=== PATIENT | female | born 1965 | race Two or more races ===

== ENCOUNTER 2020-05-17 12:13 | Outpatient (REF) | payer MEDICAID, SELFPAY ==
--- NOTE | 2020-05-17 | MM_ITS ---
EXAMINATION: MM SCREENING DIGITAL BREAST TOMOSYNTHESIS, BILATERAL CLINICAL INFORMATION: Screening. Asymptomatic. The lifetime risk of breast cancer based on the Tyrer-Cuzick Model is 8.9%. COMPARISON: Mammography: April 13, 2019 and studies dating back to July 31, 2009 TECHNIQUE: Digital breast tomosynthesis is performed in both the craniocaudal and mediolateral oblique views along with computer-aided detection (CAD). Synthesized 2D images are generated from the tomosynthesis. FINDINGS: There are scattered areas of fibroglandular density (ACR BI-RADS breast composition Category b). There are no significant masses, abnormal calcifications, or other abnormalities. MM/MM tomosynthesis screening BI IMPRESSION: There are no significant changes from prior study. ASSESSMENT: BI-RADS 1: Negative RECOMMENDATION: Routine annual mammography screening. This patient's information was entered into a reminder system with a target due date for their next mammogram.
== END 2020-05-17 12:14 | disposition home or self-care (01) ==
LOC: HO.MAMMO 12:13
PROVIDERS: PCP Student in an Organized Health Care Education/Training Program; Visit Provider Student in an Organized Health Care Education/Training Program
DX: Z12.31 Encounter for screening mammogram for malignant neoplasm of breast (principal)
CPT/HCPCS: 77063; 77067

== ENCOUNTER 2020-07-19 11:01 | Outpatient (REF) | payer MEDICAID, SELFPAY ==
--- NOTE | 2020-07-19 13:09 | MHC.AU.P13 ---
Adult Audiological Evaluation Date of Visit: 07/19/20 Reason for Appointment: Patient attends a program that requires annual hearing testing. History of developmental delay. Does patient feel they have a hearing loss?: No Has hearing been tested previously?: Yes Previous Hearing Test Results: At this clinic on 03/24/2019- normal OAEs, normal tympanograms, normal speech audiometry. Normal thresholds bilaterally at 4525-4012 Hz- patient lost interest for further tonal testing. Ear History: Recent Ear Drainage: None Reported Recent Ear Pain: None Reported Recent Ear Infections: None Reported Previous Ear Surgery: None Reported Bothersome Tinnitus/Ringing/Noises in Ears: None Reported Medical History: Medical History: Developmental Disorder/Delay Otoscopy: Right Ear: Unremarkable Left Ear: Unremarkable Tympanometry: Right Ear: Normal Middle Ear System (Type A) Left Ear: Normal Middle Ear System (Type A) Hearing Evaluation: Transducer(s) Used: Insert Earphones Method: Conventional Audiometry Stimuli Used: Pure Tones Right Ear: Description of Hearing: Normal hearing Left Ear: Description of Hearing: Normal hearing Speech Recognition Threshold (SRT): Method Used: Monitored Live Voice Stimuli Used: Spondee Words Right Ear: 15 dBHL Left Ear: 15 dBHL Word Discrimination: Method: Recorded Lists Word Lists Used: NU-6 Right Ear: 100% at 55 dBHL Left Ear: 100% at 55 dBHL Comparison: Compared to the most recent evaluation: Hearing is stable. Recommendations: Recommendations: Audiological re-evaluation in one year. Diagnosis: Primary Diagnosis: H93.293 Abnormal Auditory Perception Services Performed: Services Performed: Pure Tone- Air (CPT 70545), Speech Audiometry Threshold, with Speech Recognition (CPT 17987), Tympanometry (CPT 95025) Signature: Provider: Osvaldo Gupta, [facility]
== END 2020-07-19 11:02 | disposition home or self-care (01) ==
LOC: HO.SH 11:01
PROVIDERS: Visit Provider Student in an Organized Health Care Education/Training Program
DX: H93.293 Other abnormal auditory perceptions, bilateral (principal)
CPT/HCPCS: 92552; 92556; 92567

== ENCOUNTER → 2020-07-21 13:31 | Outpatient (BNVA) | payer MEDICAID, SELFPAY | PROVIDERS: PCP Student in an Organized Health Care Education/Training Program; Visit Provider Urology | DX: Z76.89 Persons encountering health services in other specified circumstances (principal) ==

== ENCOUNTER 2020-10-07 09:02 | Outpatient (REF) | payer MEDICAID, SELFPAY ==
[2020-10-07 10:56] LABS: Alanine Aminotransferase 17 U/L (0-31); Albumin Level 4.4 g/dL (3.5-5.0); Alkaline Phosphatase 76 U/L (39-117); Anion Gap 13 (12-20); Aspartate Amino Transferase 18 U/L (5-31); Bilirubin Direct < 0.2 mg/dL (0.0-0.5); Bilirubin Total 0.2 mg/dL (0.0-1.0); Blood Urea Nitrogen 17 mg/dL (9-16); Calcium 10.3 mg/dL (8.4-10.2); Carbon Dioxide 31 mmol/L (22-29); Chloride 101 mmol/L (96-108); Cholesterol 273 mg/dL; Estimated Glomerular Filt Rate > 60; Glucose Random 92 mg/dL (60-115); HDL Cholesterol 50 mg/dL; LDL Cholesterol Calculated 179 mg/dl; Potassium 5.4 mmol/L (3.3-5.1); Sodium 140 mmol/L (135-145); Total Protein 7.6 g/dL (6.5-8.0); Triglycerides 222 mg/dL
== END 2020-10-07 09:03 | disposition home or self-care (01) ==
LOC: HO.LAB 09:02
PROVIDERS: PCP Student in an Organized Health Care Education/Training Program; Visit Provider Student in an Organized Health Care Education/Training Program
DX: E78.00 Pure hypercholesterolemia, unspecified (principal)
CPT/HCPCS: 36415; 80048; 80061; 80076

== ENCOUNTER 2020-10-10 10:21 | Outpatient (REF) | payer MEDICAID, SELFPAY ==
--- NOTE | ~2020-10-10 | FL_ITS ---
EXAMINATION: FL BARIUM SWALLOW CLINICAL INFORMATION: Dysphagia COMPARISON: None TECHNIQUE: Barium swallow examination is performed using fluoroscopic evaluation in addition to multiple fluoroscopic spot views. The patient is imaged both upright and prone and using both thick and thin sulfate along with effervescent granules. Barium tablet was administered. Exam is limited as the patient was reluctant to drink. Fluoroscopy time: 1.4 minutes DAP: 8.6 Gycm2 Images: 39 FINDINGS: No aspiration or penetration is seen. There is temporary stasis of the barium tablet at the GE junction. There is a small sliding-type hiatal hernia with Schatzki ring. No mass, stricture or reflux is seen. FL/FL barium swallow IMPRESSION: Somewhat limited exam. No aspiration or penetration. Temporary stasis of barium tablet in the distal thoracic esophagus and small sliding-type hiatal hernia with Schatzki ring.
== END 2020-10-10 10:22 | disposition home or self-care (01) ==
LOC: HO.XRAY 10:21
PROVIDERS: PCP Student in an Organized Health Care Education/Training Program; Visit Provider Student in an Organized Health Care Education/Training Program
DX: R13.10 Dysphagia, unspecified (principal)
CPT/HCPCS: 74220

== ENCOUNTER 2020-11-10 09:25 | Day surgery (SDC) | payer MEDICAID, SELFPAY ==
[2020-11-07 14:00] VITALS: BMI 21.9
--- NOTE | 2020-11-09 09:23 | HO.ANESPROP2 ---
HPI - Anesthesia Eval Consult details Narrative: 55yo F for Upper Endoscopy with Balloon Dilation [facility] resident - developmental delay PMFSH Active Problems Active Problems: All Active Problems (Updated 11/07/20 @ 14:03 by Maria D Patel) Enureses (Acute) Past Medical History Medical History Arthritis COVID-19 vaccine administered Depression Elevated cholesterol Enureses GERD (gastroesophageal reflux disease) History of anxiety History of COVID-19 History of developmental delay Hx of bipolar disorder Surgical History Surgical History H/O colonoscopy Social History Social History Household Members: Other Are you a primary health care marketing specialist to a significant other at home: No Do you presently have visiting nurse or other home services: Yes (resides in nursing home) Smoking Status: Never smoker Use of substances other than those prescribed or required for medical reasons: No Have you been hit, kicked, punched, or otherwise hurt by someone within the past year? If so, by whom?: No Are you DNR?: No Advance Directives: No (unknown) Advance Directives Information Provided: No Recently lost weight without trying: No Eating poorly because of decreased appetite: No Nutrition Risks: No Nutritional Risk Patient : No FDLMP: N/A Meds Allergies Allergy/AdvReac Type Severity Reaction Status Date / Time hydrocortisone Allergy Unknown Unknown Verified 11/07/20 14:04 olanzapine [From ZYPREXA] Allergy Unknown UNKNOWN Unverified 03/30/20 14:56 quetiapine [From SEROQUEL] Allergy Unknown UNKNOWN Unverified 03/30/20 14:56 Pramoxine HCl Allergy Unknown Unknown Uncoded 11/07/20 14:04 Skin Cleanser Allergy Unknown Unknown Uncoded 11/07/20 14:04 Home Medications Medication Instructions Recorded Confirmed Last Taken Type atorvastatin [Lipitor] 20 mg PO BEDTIME 11/07/20 11/07/20 Unknown History citalopram [Celexa] 1 tab PO QAM 11/07/20 11/07/20 Unknown History divalproex [Depakote] 2 tab PO BEDTIME 11/07/20 11/07/20 Unknown History fluticasone propionate [Flonase] 1 spray INTRANASAL DAILY 11/07/20 11/07/20 Unknown History lorazepam [Ativan] 1 tab PO TID PRN 11/07/20 11/07/20 Unknown History olanzapine 10 mg PO BEDTIME 11/07/20 11/07/20 Unknown History omeprazole [Prilosec] 20 mg PO DAILY 11/07/20 11/07/20 Unknown History trazodone 2 tab PO BEDTIME 11/07/20 11/07/20 Unknown History ziprasidone HCl [Geodon] 60 mg PO BID 11/07/20 11/07/20 Unknown History Exam Exam Date and Time: November 09, 2020 0923 Height,Weight and Vital Signs: Height 5 ft Weight 50.802 kg Assessment and Plan Assessment Anesthesia Assessment: Chart Reviewed
[2020-11-10 09:50] VITALS: BP 115/75; PULSE 86; RESP 16; TEMP 36.3; O2SAT 97; BMI 24.5
[2020-11-10] MEDS: Lactated Ringers 1,000 ML 100 ML IVCONT (10:13)
--- NOTE | 2020-11-10 10:30 | P.CONAN_ITS ---
[facility] Active Problems Active Problems: All Active Problems (Updated 11/07/20 @ 14:03 by Maria D rodriguez) Enureses (Acute) Past Medical History Medical History (Updated 11/07/20 @ 14:03 by Maria D Patel) Arthritis COVID-19 vaccine administered Depression Elevated cholesterol Enureses GERD (gastroesophageal reflux disease) History of anxiety History of COVID-19 History of developmental delay Hx of bipolar disorder Surgical History Surgical History H/O colonoscopy Social History Social History Household Members: Other Are you a primary housekeeper caregiver to a significant other at home: No Do you presently have visiting nurse or other home services: Yes (resides in detention) Smoking Status: Never smoker Use of substances other than those prescribed or required for medical reasons: No Have you been hit, kicked, punched, or otherwise hurt by someone within the past year? If so, by whom?: No Advance Directives: No (unknown) Advance Directives Information Provided: No Recently lost weight without trying: No Meds Allergies Allergy/AdvReac Type Severity Reaction Status Date / Time hydrocortisone Allergy Unknown Unknown Verified 11/07/20 14:04 olanzapine [From ZYPREXA] Allergy Unknown UNKNOWN Unverified 03/30/20 14:56 quetiapine [From SEROQUEL] Allergy Unknown UNKNOWN Unverified 03/30/20 14:56 Pramoxine HCl Allergy Unknown Unknown Uncoded 11/07/20 14:04 Skin Cleanser Allergy Unknown Unknown Uncoded 11/07/20 14:04 Active Medications: Current Medications Generic Name Dose Route Start Last Admin Trade Name Freq PRN Reason Stop Dose Admin Lactated Ringer's 1,000 mls @ 100 mls/hr 11/10/20 10:00 11/10/20 10:13 Lr IVCONT 100 mls/hr .Q10H JUSTINA Administration Home Medications Medication Instructions Recorded Confirmed Last Taken Type atorvastatin [Lipitor] 20 mg PO BEDTIME 11/07/20 11/07/20 Unknown History citalopram [Celexa] 1 tab PO QAM 11/07/20 11/07/20 Unknown History divalproex [Depakote] 2 tab PO BEDTIME 11/07/20 11/07/20 Unknown History fluticasone propionate [Flonase] 1 spray INTRANASAL DAILY 11/07/20 11/07/20 Unknown History lorazepam [Ativan] 1 tab PO TID PRN 11/07/20 11/07/20 Unknown History olanzapine 10 mg PO BEDTIME 11/07/20 11/07/20 Unknown History omeprazole [Prilosec] 20 mg PO DAILY 11/07/20 11/07/20 Unknown History trazodone 2 tab PO BEDTIME 11/07/20 11/07/20 Unknown History ziprasidone HCl [Geodon] 60 mg PO BID 11/07/20 11/07/20 Unknown History Exam Exam Date and Time: November 10, 2020 1030 Height,Weight and Vital Signs: Height 5 ft Weight 56.961 kg Last Vital Signs Temp 97.3 F 11/10/20 09:50 Pulse 86 11/10/20 09:50 Resp 16 11/10/20 09:50 BP 115/75 11/10/20 09:50 Pulse Ox 97 11/10/20 09:50 Airway Mallampati Class: II TM Dist: >3cm Neck ROM: Full Heart: RRR Lungs: CTA
[2020-11-10 10:56] VITALS: BP 92/46; PULSE 76; RESP 14; TEMP 36.6; O2SAT 97
--- NOTE | 2020-11-10 11:00 | PM.OP ---
Brief Operative Note Date of Service: 11/10/20 Pre-op diagnosis: Dysphagia Post-op diagnosis: other (Hiatal hernia, R/O EOE) Procedure: EGD with Balloon Dilation and biopsies Surgeon: Khris Cid Anesthesia: MAC Estimated blood loss (mL): 3.0 Pathology: other (A. Esophagus at 25cm) Condition: stable Disposition: PACU
--- NOTE | 2020-11-10 11:09 | HO.ANESPROP2 ---
[facility] Active Problems Active Problems: All Active Problems (Updated 11/07/20 @ 14:03 by Maria D Patel) Enureses (Acute) Past Medical History Medical History Arthritis COVID-19 vaccine administered Depression Elevated cholesterol Enureses GERD (gastroesophageal reflux disease) History of anxiety History of COVID-19 History of developmental delay Hx of bipolar disorder Surgical History Surgical History H/O colonoscopy Social History Social History Household Members: Other Are you a primary home care nurse to a significant other at home: No Do you presently have visiting nurse or other home services: Yes (resides in [facility]) Smoking Status: Never smoker Use of substances other than those prescribed or required for medical reasons: No Have you been hit, kicked, punched, or otherwise hurt by someone within the past year? If so, by whom?: No Advance Directives: No (unknown) Advance Directives Information Provided: No Recently lost weight without trying: No Meds Allergies Allergy/AdvReac Type Severity Reaction Status Date / Time hydrocortisone Allergy Unknown Unknown Verified 11/07/20 14:04 olanzapine [From ZYPREXA] Allergy Unknown UNKNOWN Unverified 03/30/20 14:56 quetiapine [From SEROQUEL] Allergy Unknown UNKNOWN Unverified 03/30/20 14:56 Pramoxine HCl Allergy Unknown Unknown Uncoded 11/07/20 14:04 Skin Cleanser Allergy Unknown Unknown Uncoded 11/07/20 14:04 Active Medications: Current Medications Generic Name Dose Route Start Last Admin Trade Name Freq PRN Reason Stop Dose Admin Lactated Ringer's 1,000 mls @ 100 mls/hr 11/10/20 10:00 11/10/20 10:13 Lr IVCONT 100 mls/hr .Q10H JUSTINA Administration Home Medications Medication Instructions Recorded Confirmed Last Taken Type atorvastatin [Lipitor] 20 mg PO BEDTIME 11/07/20 11/07/20 Unknown History citalopram [Celexa] 1 tab PO QAM 11/07/20 11/07/20 Unknown History divalproex [Depakote] 2 tab PO BEDTIME 11/07/20 11/07/20 Unknown History fluticasone propionate [Flonase] 1 spray INTRANASAL DAILY 11/07/20 11/07/20 Unknown History lorazepam [Ativan] 1 tab PO TID PRN 11/07/20 11/07/20 Unknown History olanzapine 10 mg PO BEDTIME 11/07/20 11/07/20 Unknown History omeprazole [Prilosec] 20 mg PO DAILY 11/07/20 11/07/20 Unknown History trazodone 2 tab PO BEDTIME 11/07/20 11/07/20 Unknown History ziprasidone HCl [Geodon] 60 mg PO BID 11/07/20 11/07/20 Unknown History Exam Exam Date and Time: November 10, 2020 1109 Height,Weight and Vital Signs: Height 5 ft Weight 56.961 kg Last Vital Signs Temp 97.9 F 11/10/20 10:56 Pulse 76 11/10/20 10:56 Resp 14 11/10/20 10:56 BP 92/46 L 11/10/20 10:56 Pulse Ox 97 11/10/20 10:56 Airway Mallampati Class: II TM Dist: >3cm Neck ROM: Full Heart: RRR Lungs: CTA
[2020-11-10 11:11] VITALS: BP 97/55; PULSE 78; RESP 18; O2SAT 98
--- NOTE | 2020-11-10 11:22 | OP_ITS ---
SURGEON: Khris Cid MD INDICATIONS: The patient presents for evaluation of dysphagia and abnormal barium swallow. Full consent has been obtained from her for this, including risks of bleeding and perforation. PREOPERATIVE DIAGNOSIS: POSTOPERATIVE DIAGNOSIS: PROCEDURE PERFORMED: Esophagogastroduodenoscopy with balloon dilation of gastroesophageal junction, and biopsies. ESTIMATED BLOOD LOSS: COMPLICATIONS: ANESTHESIA: Monitored anesthesia care. ASSISTANTS: SPECIMENS: PREOPERATIVE DIAGNOSES: Dysphagia and abnormal barium swallow. POSTOPERATIVE DIAGNOSES: Dysphagia and abnormal barium swallow, small hiatal hernia, rule out eosinophilic esophagitis. DESCRIPTION OF PROCEDURE: The patient was placed in the left lateral decubitus position. The Olympus video gastroscope was passed in the posterior oropharynx and upper esophagus under direct vision. The scope was passed slowly into the distal esophagus. The gastroesophageal junction appeared at 32 cm. There was no sign of any esophagitis, esophageal stricture, Riley's esophagus, nor any definitive esophageal ring. The scope easily entered into the stomach. There was a small hiatal hernia. The scope was advanced to the pylorus and the duodenum was cannulated to the descending portion. The duodenum including the bulb appeared normal without mass or ulceration. The scope was withdrawn back in the stomach. The gastric antrum and body appeared normal with good peristalsis. The scope was retroflexed visualizing the proximal stomach carefully, which appeared normal, without any mass or ulceration. The scope was straightened out and withdrawn back into the esophagus. Given the symptomatology and barium swallow findings, I did use a [employer] incremental balloon to dilate the gastroesophageal junction from 18 mm to 19 mm to 20 mm at the recommended pressure for between 30 and 60 seconds each. Post dilation, there really was no heme nor any sign of effect from the dilation. The scope was withdrawn to the esophagus. The esophageal mucosa appeared normal. Biopsies were obtained at 25 cm. The scope was withdrawn from the patient. She tolerated the procedure well and was returned to the recovery area in stable condition. IMPRESSION: 1. Small hiatal hernia. 2. Status post balloon dilation of gastroesophageal junction. 3. Rule out eosinophilic esophagitis. PLAN: The results of biopsies will be checked. She will continue her daily Prilosec. Instructions have been given that as long as she is doing well from the swallowing standpoint, she could see me on a p.r.n. basis and she will be due for a followup colonoscopy in 2021. If she continues to have problems, instructions have been given that I should be advised of that and we would want to proceed with further workup including a possible modified barium swallow with [facility] as well as possible esophageal motility studies. This has been discussed with Demi, her program coordinator for residence life from the shelter. MD SHELDON Moore/VERO / [phone]
--- NOTE | 2020-11-10 13:04 | HO.POSTANES ---
Post Anesthesia Evaluation Post Anesthesia Evaluation Vital Signs: Vital Signs Temp Pulse Resp BP Pulse Ox 11/10/20 11:11 78 18 97/55 L 98 11/10/20 10:56 97.9 F 76 14 92/46 L 97 11/10/20 09:50 97.3 F 86 16 115/75 97 Anesthesia: Monitored Mental Status: Awake Pain Control: Satisfactory Nausea/Vomiting: None Hydration: Adequate Anesthesia-Related Issues: No Anes. Related Issues
== END 2020-11-10 12:38 | disposition home or self-care (01) ==
PROVIDERS: PCP Student in an Organized Health Care Education/Training Program; Visit Provider Internal Medicine
PROC: (CPT 43249; principal; 2020-11-10 10:10)
DX: R93.3 Abnormal findings on diagnostic imaging of other parts of digestive tract (principal); R13.10 Dysphagia, unspecified; K21.9 Gastro-esophageal reflux disease without esophagitis; K44.9 Diaphragmatic hernia without obstruction or gangrene; F32.9 Major depressive disorder, single episode, unspecified; R32 Unspecified urinary incontinence; R62.50 Unspecified lack of expected normal physiological development in childhood; Z86.16 Personal history of COVID-19; Z79.899 Other long term (current) drug therapy; Z88.8 Allergy status to other drugs, medicaments and biological substances
CPT/HCPCS: 43249; 43239; 88305; C1726

== ENCOUNTER → 2020-12-21 13:51 | Outpatient (BNVA) | payer MEDICAID, SELFPAY | PROVIDERS: PCP Student in an Organized Health Care Education/Training Program; Visit Provider Urology | DX: R32 Unspecified urinary incontinence (principal) | CPT/HCPCS: 99212 ==

== ENCOUNTER 2021-05-22 11:03 | Outpatient (REF) | payer MEDICAID, SELFPAY ==
--- NOTE | ~2021-05-22 | MM_ITS ---
EXAMINATION: MM SCREENING DIGITAL BREAST TOMOSYNTHESIS, BILATERAL CLINICAL INFORMATION: Screening. Asymptomatic. The lifetime risk of breast cancer based on the Tyrer-Cuzick Model is 9.6%. COMPARISON: Mammography: May 17, 2020 and studies dating back to January 21, 2014 TECHNIQUE: Digital breast tomosynthesis is performed in both the craniocaudal and mediolateral oblique views along with computer-aided detection (CAD). Synthesized 2D images are generated from the tomosynthesis. FINDINGS: There are scattered areas of fibroglandular density (ACR BI-RADS breast composition Category b). There are no significant masses, abnormal calcifications, or other abnormalities. MM/MM tomosynthesis screening BI IMPRESSION: There are no significant changes from prior study. ASSESSMENT: BI-RADS 1: Negative RECOMMENDATION: Routine annual mammography screening. This patient's information was entered into a reminder system with a target due date for their next mammogram.
== END 2021-05-22 11:04 | disposition home or self-care (01) ==
LOC: HO.MAMMO 11:03
PROVIDERS: Visit Provider Student in an Organized Health Care Education/Training Program
DX: Z12.31 Encounter for screening mammogram for malignant neoplasm of breast (principal)
CPT/HCPCS: 77063; 77067

== ENCOUNTER → 2021-06-22 13:28 | Outpatient (BNVA) | payer MEDICAID, SELFPAY | PROVIDERS: PCP Student in an Organized Health Care Education/Training Program | DX: R32 Unspecified urinary incontinence (principal) | CPT/HCPCS: 51798; 99212 ==

== ENCOUNTER 2021-08-07 13:00 | Outpatient (REF) | payer MEDICAID, SELFPAY ==
--- NOTE | 2021-08-07 16:46 | MHC.AU.AEV ---
Adult Audiological Evaluation Date of Visit: 08/07/21 Regulatory Compliance Manager Used: Declined by Patient, Caregiver provided Italian interpretation. Reason for Appointment: Ms. Wang was seen for a yearly re-evaluation to monitor her hearing status. Patient was accompanied by a caregiver. Patient reports no change in her hearing or medical status since her last exam. Ms. Wang's caregiver reports no concerns with Ms. Wang's hearing overall, although she often needs reminders to stay focused on a task. Does patient feel they have a hearing loss?: No If Yes, Which Ear?: None Reported Has hearing been tested previously?: Yes Previous Hearing Test Results: Patient's previous exam was on 07/19/2020 which revealed normal hearing thresholds from 250 to 8000 Hz bilaterally. Medical History: Medical History: Developmental Disorder/Delay Medical History: High cholesterol, allergies, mental health diagnoses Allergies: Hydrocortisone, olanzapine, quetiapine, pramoxine HCL Medication List: Tofranil HCL, Prilosec, Lipitor, Tylenol, Fish oil, Flonase, Colace, Cetirizine, IC Calcium, Cogentin/Benztropine, Celexa, Depakote DR, Ativan, Desyrel, Zyprexa Otoscopy: Right Ear: Unremarkable Left Ear: Unremarkable Tympanometry: Tympanometry performed due to: To assess integrity of the middle ear system Right Ear: Normal Middle Ear System (Type A) Left Ear: Normal Middle Ear System (Type A) Otoacoustic Emissions Frequency Range Used: 1.6-8 kHz Right Ear Results: Present 1.6-3.2 & 5.6-6.3 kHz. Reduced/absent 3.6-5.0 & 7.1-8.0 kHz Analysis: High noise floor present due to movement/vocalizations, which likely impacted results. Left Ear Results: Present Emissions Analysis: Present emissions suggest normal cochlear function. Rules out peripheral hearing loss greater than a mild degree Hearing Evaluation: Transducer(s) Used: Insert Earphones Method: Conventional Audiometry Stimuli Used: Pure Tones Right Ear: Description of Hearing: Normal hearing across all frequencies tested, 250-8000 Hz. Left Ear: Description of Hearing: Normal hearing across all frequencies tested, 250-8000 Hz. Speech Recognition Threshold (SRT): Method Used: Recorded Lists Stimuli Used: Italian Trisyllable Words Right Ear: 25 dB HL Left Ear: 25 dB HL Word Discrimination: Method: Recorded Lists Word Lists Used: Lista Bisil?bica (Italian) Right Ear: 84% at 65 dB HL Left Ear: 84% at 65 dB HL Comparison: Compared to the most recent evaluation: Hearing is stable. Interpretation of Results: Normal hearing abilities bilaterally. Recommendations: Audiological re-evaluation if changes are noted. Audiological re-evaluation in one year. Diagnosis: Primary Diagnosis: H93.293 Abnormal Auditory Perception Services Performed: Comprehensive Audiological Evaluation (CPT 88135) Tympanometry (CPT 82486) Signature: Student/Clinical Fellow: Yes: Kathy Castillo B.A., Osvaldo Mate Fourth I have reviewed/agreed with student/fellow documentation: Yes Provider: Osvaldo Simon, [facility]
== END 2021-08-07 13:01 | disposition home or self-care (01) ==
LOC: HO.SH 13:00
PROVIDERS: Visit Provider Student in an Organized Health Care Education/Training Program
DX: Z01.118 Encounter for examination of ears and hearing with other abnormal findings (principal); H93.293 Other abnormal auditory perceptions, bilateral
CPT/HCPCS: 92552; 92556; 92557; 92567; 92588

== ENCOUNTER → 2022-02-12 08:37 | Outpatient (BNVA) | payer MEDICAID, SELFPAY | PROVIDERS: PCP Student in an Organized Health Care Education/Training Program | DX: R32 Unspecified urinary incontinence (principal) | CPT/HCPCS: 51798; 99212 ==

== ENCOUNTER 2022-05-28 08:18 | Outpatient (REF) | payer MEDICAID, SELFPAY ==
--- NOTE | ~2022-05-28 | MM_ITS ---
EXAMINATION: MM SCREENING DIGITAL BREAST TOMOSYNTHESIS, BILATERAL CLINICAL INFORMATION: Screening. Asymptomatic. COMPARISON: Mammography: 05/22/2021, 05/17/2020, 04/13/2019 TECHNIQUE: Digital breast tomosynthesis is performed in both the craniocaudal and mediolateral oblique views along with computer-aided detection (CAD). Synthesized 2D images are generated from the tomosynthesis. FINDINGS: There are scattered areas of fibroglandular density (ACR BI-RADS breast composition Category b). There are no significant masses, abnormal calcifications, or other abnormalities. Parenchymal pattern is similar to prior studies. There is no developing density or architectural abnormality. The axilla and skin contours are unremarkable. No significant changes. MM/MM tomosynthesis screening BI IMPRESSION: No mammographic evidence of malignancy. ASSESSMENT: BI-RADS 1: Negative RECOMMENDATION: Routine annual mammography screening. This patient's information was entered into a reminder system with a target due date for their next mammogram.
== END 2022-05-28 08:19 | disposition home or self-care (01) ==
LOC: HO.MAMMO 08:18
PROVIDERS: PCP Student in an Organized Health Care Education/Training Program; Visit Provider Student in an Organized Health Care Education/Training Program
DX: Z12.31 Encounter for screening mammogram for malignant neoplasm of breast (principal)
CPT/HCPCS: 77063; 77067

== ENCOUNTER → 2022-08-15 08:31 | Outpatient (BNVA) | payer MEDICAID, SELFPAY | PROVIDERS: PCP Student in an Organized Health Care Education/Training Program; Visit Provider Nurse Practitioner Family | DX: R33.9 Retention of urine, unspecified (principal); R32 Unspecified urinary incontinence | CPT/HCPCS: 51798; 99212 ==

== ENCOUNTER → 2023-01-06 10:19 | Outpatient (BNVA) | payer MEDICAID, SELFPAY | PROVIDERS: PCP Student in an Organized Health Care Education/Training Program; Visit Provider Nurse Practitioner Family | DX: R33.9 Retention of urine, unspecified (principal); R32 Unspecified urinary incontinence | CPT/HCPCS: 51798; 99212 ==

== ENCOUNTER → 2023-02-19 08:16 | Day surgery (SDC) | payer MEDICAID, SELFPAY ==
--- NOTE | 2023-02-18 10:33 | HO.ANESPROP2 ---
Documented by User: Samantha Bhardwaj NP 02/18/23 10:34 HPI - Anesthesia Eval Consult details Narrative: 57yo F for Colonoscopy PMFSH Active Problems Active Problems: All Active Problems (Updated 08/15/22 @ 16:45 by Lizabeth Flores [facility]) Incomplete bladder emptying (Acute) Enureses (Acute) Past Medical History Medical History Arthritis COVID-19 vaccine administered Depression Elevated cholesterol Enureses GERD (gastroesophageal reflux disease) History of anxiety History of COVID-19 History of developmental delay Hx of bipolar disorder Surgical History Surgical History H/O colonoscopy Social History Social History Household Members: Other Are you a primary patient care secretary to a significant other at home: No Do you presently have visiting nurse or other home services: Yes (resides in long term) Alcohol intake: never Patient Tobacco Use Status: Never used Tobacco Meds Allergies Allergy/AdvReac Type Severity Reaction Status Date / Time hydrocortisone Allergy Unknown Unknown Verified 01/06/23 14:28 olanzapine [From ZYPREXA] Allergy Unknown UNKNOWN Verified 01/06/23 14:28 quetiapine [From SEROQUEL] Allergy Unknown UNKNOWN Verified 01/06/23 14:28 Pramoxine HCl Allergy Unknown Unknown Uncoded 01/06/23 14:28 Skin Cleanser Allergy Unknown Unknown Uncoded 01/06/23 14:28 Home Medications Medication Instructions Recorded Confirmed Last Taken Type citalopram 40 mg tablet (Celexa) 1 tab PO QAM 11/07/20 08/15/22 Unknown History divalproex 500 mg tablet,delayed 2 tab PO BEDTIME 11/07/20 08/15/22 Unknown History release (Depakote) fluticasone propionate 50 1 spray intranasal DAILY 11/07/20 08/15/22 Unknown History mcg/actuation nasal spray,suspension lorazepam 0.5 mg tablet (Ativan) 1 tab PO TID PRN Anxiety 11/07/20 08/15/22 Unknown History olanzapine 5 mg tablet 10 mg PO BEDTIME 11/07/20 08/15/22 Unknown History omeprazole 20 mg capsule,delayed 20 mg PO DAILY 11/07/20 08/15/22 Unknown History release trazodone 100 mg tablet 2 tab PO BEDTIME 11/07/20 08/15/22 Unknown History ziprasidone HCl 60 mg capsule 60 mg PO BID 11/07/20 08/15/22 Unknown History (Yanet) atorvastatin 40 mg tablet 40 mg PO QPM 01/06/23 Unknown History benztropine 0.5 mg tablet 0.5 mg PO BID 01/06/23 Unknown History calcium carbonate 500 mg-vitamin 1 tab PO DAILY 01/06/23 Unknown History D3 10 mcg (400 unit) chewable tablet cetirizine 10 mg tablet 10 mg PO DAILY 01/06/23 Unknown History docusate sodium 100 mg capsule 0 mg PO 01/06/23 Unknown History (MADELYN) fluphenazine HCl 2.5 mg tablet 2.5 mg PO BID 01/06/23 Unknown History olanzapine 10 mg tablet 10 mg PO BEDTIME 01/06/23 Unknown History Exam Exam Date and Time: February 18, 2023 1033 Assessment and Plan Assessment Anesthesia Assessment: Chart Reviewed Documented by User: Mary Dallas MD 02/19/23 10:05 HPI - Anesthesia Eval Consult details Narrative: 57yo F for Colonoscopy. Patient is not competent to sign and has no health care proxy or legal guardian. Procedure is being postponed pending appointment of legal guardian [facility] Past Medical History Medical History Arthritis COVID-19 vaccine administered Depression Elevated cholesterol Enureses GERD (gastroesophageal reflux disease) History of anxiety History of COVID-19 History of developmental delay Hx of bipolar disorder Surgical History Surgical History H/O colonoscopy Social History Social History Household Members: Other Are you a primary patient care secretary to a significant other at home: No Do you presently have visiting nurse or other home services: Yes (resides in long term) Alcohol intake: never Patient Tobacco Use Status: Never used Tobacco Meds Allergies Allergy/AdvReac Type Severity Reaction Status Date / Time hydrocortisone Allergy Unknown Unknown Verified 01/06/23 14:28 olanzapine [From ZYPREXA] Allergy Unknown UNKNOWN Verified 01/06/23 14:28 quetiapine [From SEROQUEL] Allergy Unknown UNKNOWN Verified 01/06/23 14:28 Pramoxine HCl Allergy Unknown Unknown Uncoded 01/06/23 14:28 Skin Cleanser Allergy Unknown Unknown Uncoded 01/06/23 14:28 Home Medications Medication Instructions Recorded Confirmed Last Taken Type citalopram 40 mg tablet (Celexa) 1 tab PO QAM 11/07/20 08/15/22 Unknown History divalproex 500 mg tablet,delayed 2 tab PO BEDTIME 11/07/20 08/15/22 Unknown History release (Depakote) fluticasone propionate 50 1 spray intranasal DAILY 11/07/20 08/15/22 Unknown History mcg/actuation nasal spray,suspension lorazepam 0.5 mg tablet (Ativan) 1 tab PO TID PRN Anxiety 11/07/20 08/15/22 Unknown History olanzapine 5 mg tablet 10 mg PO BEDTIME 11/07/20 08/15/22 Unknown History omeprazole 20 mg capsule,delayed 20 mg PO DAILY 11/07/20 08/15/22 Unknown History release trazodone 100 mg tablet 2 tab PO BEDTIME 11/07/20 08/15/22 Unknown History ziprasidone HCl 60 mg capsule 60 mg PO BID 11/07/20 08/15/22 Unknown History (Georoberto) atorvastatin 40 mg tablet 40 mg PO QPM 01/06/23 Unknown History benztropine 0.5 mg tablet 0.5 mg PO BID 01/06/23 Unknown History calcium carbonate 500 mg-vitamin 1 tab PO DAILY 01/06/23 Unknown History D3 10 mcg (400 unit) chewable tablet cetirizine 10 mg tablet 10 mg PO DAILY 01/06/23 Unknown History docusate sodium 100 mg capsule 0 mg PO 01/06/23 Unknown History (DOK) fluphenazine HCl 2.5 mg tablet 2.5 mg PO BID 01/06/23 Unknown History olanzapine 10 mg tablet 10 mg PO BEDTIME 01/06/23 Unknown History
--- OUTSIDE RECORDS SUMMARY | 2023-02-19 08:18 | XMS_ITS ---
Author Name Khris Cid Address [address] [place] [address] Organization [facility] Address [address] [place] [address] Care Team Providers Care Lodging Facilities Manager Name Role Phone PalakKhris Unavailable [phone] PROBLEMS Type Condition ICD9-CM Code GXI95-WJ Code Onset Dates Condition Status SNOMED Code Problem Constipation, unspecified constipation type K59.00 Active 69433274 Problem Gastroesophageal reflux disease without esophagitis K21.9 Active 95044646 5 Problem Encounter for screening for malignant neoplasm of colon Z12.11 Active 705535414 Problem Weight loss R63.4 Active 71357078 Problem Abnormal barium swallow R93.3 Active 792121583 Problem Esophageal dysphagia R13.10 Active 408 99660 ALLERGIES Substance Reaction Event Type Date Status Seroquel Unknown Drug Allergy November, Active ENCOUNTERS Encounter Location Date Diagnosis [facility] Outpatient [address] [place] [id number] Feb, [facility] [address] [place] [phone] November, [facility] [address] [facility] [address] [place] [phone] November, Encounter for screening for malignant neoplasm of colon Z12.11 ; Gastroesophageal reflux disease without esophagitis K21.9 ; Constipation, unspecified constipation type K59.00 and Esophageal dysphagia R13.10 [facility] Outpatient [address] [place] [id number] Oct, Dysphagia R13.10 ; Abnormal CT scan, esophagus R93.3 and Hiatal hernia K44.9 [facility] [address] [place] [phone] Oct, Esophageal dysphagia R13.10 and Abnormal barium swallow R93.3 [facility] [address] [place] [address] Oct, [facility] [address] [place] [phone] Jul, [facility] [address] [place] [phone] Jun, [facility] Outpatient [address], [place] [phone] Jun, [facility] [address] [place] [phone] Apr, [facility] [address] [place] [phone] Apr, [facility] [address] [place] [phone] Apr, Weight loss R63.4 and Encounter for screening for malignant neoplasm of colon Z12.11 IMMUNIZATIONS Vaccine Route Administration Date Status Influenza Unknown Apr 26, 2020 Administered SOCIAL HISTORY Qualifiers Date Never Smoker REASON FOR REFERRAL FUNCTIONAL STATUS PLAN OF CARE Activity Details VITAL SIGNS Weight 149 lbs 2022-12-05 Weight 112 lbs 2020-11-01 Weight 114 lbs 2017-05-06 Height 60 in 2022-12-05 Height 60 in 2020-11-01 Height 60 in 2017-05-06 BMI 29.10 kg/m2 2022-12-05 BMI 21.87 kg/m2 2020-11-01 BMI 22.26 kg/m2 2017-05-06 Heart Rate 60 /min 2017-05-06 Temperature 97.8 degrees Fahrenheit Temperature 98.2 degrees Fahrenheit Blood pressure systolic 000 mm Hg Blood pressure diastolic 00 mm Hg 2022-11 MEDICATIONS Medication Instructions Dosage Frequency Start Date End Date Duration Status Flonase Allergy Relief 50 MCG/ACT Nasally Once a day 1 spray in each nostril 24h 30 day(s) Active Oyster Shell Calcium + D Active Tylenol 500 mg A ctive Depakote 1000 mg Active CeleXA 40 MG Orally Once a day 0.5 tablet 24h Active Lubricant Eye Drops Active [place] 3 Active Calcium + Vitamin D3 500-400 Active Prilosec Active Lipitor 40 MG Orally Once a day 1 tablet 24h 30 day(s) Active MiraLax (colon prep) 17 GM/SCOOP Orally Take the 1/2 bottle 2 days before the colonoscopy, and begin the full bottle at 5:00 p.m. the day before the procedure 1/2 of a 238Gm bottle mixed with 32 ounces of Gatorade 2 days before the colonoscopy, and then 1 238 GM bottle mixed with 64 ounces of Gatorade or Crystal Light the day before the colonoscopy November, 2 days Active Colace 100 MG Orally twice a day 1 capsule as needed 12h Active Bethanechol Chloride 50 MG Orally Three times a day 1 tablet 1 hour before or 2 hours after meals 8h 30 day(s) Active Cetirizine HCl 10 MG Active Tofranil Active fluPHENAZine HCl 2.5 MG Orally Once a day 1 tablet 24h 30 day(s) Active ZyPREXA 5 MG Act temi Ativan 0.5 MG Orally as directed /as needed 1 tablet as needed Active Dulcolax (colon prep) 5 MG Orally 2 tablets once two days before the colonoscopy, and two tablets twice a day for one day Take 2 Dulcolax 2 days before the colonoscopy, and then take 2 at 3:00 p.m and at 7:00p.m. on the day before the colonoscopy November, 2 days Active PROCEDURES Procedure Date Ordered Result Body Site TOBACCO NON-USER December 05, 2022 DOC MEDS VERIFIED W/PT OR RE December 05, 2022 TOBACCO NON-USER November 01, 2020 DOC MEDS VERIFIED W/PT OR RE November 01, 2020 UPPER GI ENDOSCOPY, BIOPSY November 10, 2020 COLORECTAL CA SCREEN DOC REV December 05, 2022 COLORECTAL CA SCREEN DOC REV November 01, 2020 ESOPH ENDOSCOPY, DILATION November 10, 2020 BP SCR PRFRM RCMDD DEFIND SCR INTVL November 01, 2020 BP SCR NOT PRFRM REC REASON NOS December 05, 2022 RESULTS Name Result Date Reference Range Pathology 2020-11-10 REASON FOR VISIT screening, 2 day bowel prep, Patient presents today for a COLON SCREENING, abn barium swallow,dysphagia, Patient presents today for DIFFICULTY SWALLOWING SOLIDS, COVID Screen, Refusing to do stool cards, GERD/PRE COLON, Heme cards, screening colon, Patient presents today for weight loss Insurance Providers Health Insurance Type Health Plan Insurance Address Health Plan Insurance Phone Health Plan Insurance Name Health Plan Coverage Dates Member ID Patient Relationship to Subscriber Patient Address Patient Phone Patient Name Patient Date of Subscriber ID Subscriber Name Subscriber Date of Group No [place] [address] [place] [address] [place] self [facility] [id number] [facility] [place] [address] [facility] [address] [facility] [place] self [facility] [id number]
--- NOTE | 2023-02-19 09:34 | PC.NURSE ---
pt with health care worker at bedside, terminal gauger. Pt axo x person only. states she is here for psychiatrist. unable to state date. no family or guardian. call to catalogue and special products manager info given from catalogue and special products manager but no legal administrative representative appointed. Per [facility] Director, cannot proceed. risk management notified by director. advised health care worker that legal guardian should be pursued.
--- NOTE | 2023-02-19 09:39 | PC.NURSE ---
dr. aleman notified.
[2023-02-19 09:41] VITALS: BP 121/73; PULSE 81; RESP 18; TEMP 36.6; O2SAT 100
== END ==
PROVIDERS: PCP Student in an Organized Health Care Education/Training Program; Visit Provider Internal Medicine
DX: Z53.8 Procedure and treatment not carried out for other reasons (principal); Z12.11 Encounter for screening for malignant neoplasm of colon; E78.5 Hyperlipidemia, unspecified; R13.10 Dysphagia, unspecified; K21.9 Gastro-esophageal reflux disease without esophagitis; Z79.899 Other long term (current) drug therapy

== ENCOUNTER → 2023-03-06 13:30 | Outpatient (BNV) | payer MEDICAID, SELFPAY | PROVIDERS: PCP Student in an Organized Health Care Education/Training Program; Visit Provider Radiology Diagnostic Radiology | DX: N63.23 Unspecified lump in the left breast, lower outer quadrant (principal) | CPT/HCPCS: 76642; 77062; 77066 ==

== ENCOUNTER 2023-03-06 13:47 | Outpatient (REF) | payer MEDICAID, SELFPAY ==
--- NOTE | ~2023-03-06 | MM_ITS ---
EXAMINATION: MM DIAGNOSTIC DIGITAL BREAST TOMOSYNTHESIS, BILATERAL US BREAST LIMITED, LEFT MAMMOGRAPHY: CLINICAL INFORMATION: Palpable focus of concern patient's physician felt medial left breast, 4 cm from the nipple, approximately 10:00 location. Patient states she cannot feel the abnormality for localization purposes today. Patient also due for routine bilateral screening. COMPARISON: Mammography: 05/28/2022, 05/22/2021, 05/17/2020, 04/09/2018. TECHNIQUE: Digital breast tomosynthesis is performed in both the craniocaudal and mediolateral oblique views along with computer-aided detection (CAD). Synthesized 2D images are generated from the tomosynthesis. In addition a 3-D full-field left mediolateral view was performed. FINDINGS: There are scattered areas of fibroglandular density (ACR BI-RADS breast composition Category b). There are no suspicious masses, suspicious grouped calcifications, or areas of architectural distortion. The parenchymal pattern is stable from prior exams. There is no mammographic mass or area of architectural distortion in the medial left breast. No mammographic correlate to the palpable focus of concern is present. ULTRASOUND: CLINICAL INFORMATION: Palpable focus of concern patient's physician felt medial left breast, 4 cm from the nipple, approximately 10:00 location. Patient states she cannot feel the abnormality for localization purposes today. COMPARISON: None relevant. TECHNIQUE: Targeted sonographic evaluation was performed of the medial left breast spanning the 7-11 o'clock axes using a high frequency linear transducer. Selected archived documentation. FINDINGS: LEFT BREAST: There is a mixture of fatty and fibroglandular tissue. No suspicious mass is seen. There is no pathologic acoustic shadowing. There is no cystic abnormality. No sonographic correlate to the palpable focus of concern is present. MM/MM tomosynthesis diagnostic BI IMPRESSION: There are no findings suspicious for malignancy. There is no imaging correlate to the purported palpable focus of concern in the medial left breast, 4 cm from the nipple. Recommend clinical management. Decision to biopsy a palpable abnormality without imaging correlate must be based on clinical grounds. OVERALL ASSESSMENT: Mammography: BI-RADS 1 - Negative Ultrasound: BI-RADS 1 - Negative RECOMMENDATION: 1 year F/U Results were provided to the patient at time of visit by the technologist. This patient's information was entered into a reminder system with a target due date for their next mammogram.
== END 2023-03-06 13:48 | disposition home or self-care (01) ==
LOC: HO.MAMMO 13:47
PROVIDERS: PCP Student in an Organized Health Care Education/Training Program; Visit Provider Emergency Medicine
DX: N64.4 Mastodynia (principal)
CPT/HCPCS: 76642; 77062; 77066

== ENCOUNTER 2023-07-08 10:37 | Outpatient (AMB) | payer MEDICAID, SELFPAY ==
--- NOTE | 2023-07-08 10:42 | MHC.OFFVIS ---
Intake Intake Visit Reasons: 6m/PVR Intake Note: Patient is present for follow up retention/incontinence Urology Medications: Bethanechol Blood Thinner: none PVR: 148ml's Laser Print Operator Required: Yes Accompanied by: ADVANCED QUALITY ENGINEER Allergies hydrocortisone Allergy (Unknown, Verified 07/08/23 10:57) Unknown olanzapine [From ZYPREXA] Allergy (Unknown, Verified 07/08/23 10:57) UNKNOWN quetiapine [From SEROQUEL] Allergy (Unknown, Verified 07/08/23 10:57) UNKNOWN Pramoxine HCl Allergy (Unknown, Uncoded 07/08/23 10:57) Unknown Skin Cleanser Allergy (Unknown, Uncoded 07/08/23 10:57) Unknown HPI HPI Comments History of Present Illness Details Rebecca is a pleasant 57-year-old female patient of Dr. Keys. She presents today for follow-up regarding her overactive bladder. She has a past medical history of arthritis, depression, elevated cholesterol, enuresis, GERD, anxiety, developmental delay, and bipolar disorder. [facility] by her case finisher at today's visit. When asked patient reports to be doing well. Senior Qa Analyst and patient deny any issues or concerns at this time. She reports compliance with imipramine and bethanechol as prescribed. She denies urinary incontinence, dysuria, urgency, frequency, and or hematuria however patient is vague and a poor historian at times throughout todays visit. 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 Unable to obtain urine for urinalysis as patient unable to void . PVR 48 mLs. [facility] Medical History COVID-19 vaccine administered History of COVID-19 History of anxiety Arthritis Elevated cholesterol GERD (gastroesophageal reflux disease) Depression History of developmental delay Hx of bipolar disorder Enureses Surgical History H/O colonoscopy Social History Household Members: Other Are you a primary animal care technician to a significant other at home: No Do you presently have visiting nurse or other home services: Yes (resides in custodial) Alcohol intake: never Patient Tobacco Use Status: Never used Tobacco Review of Systems Const Reports as per HPI Eyes Reports no additional complaints ENT Reports no additional complaints Card Reports no additional complaints Resp Reports no additional complaints GI Reports as per [facility] Reports as per [facility] Musc Reports as per [facility] Neuro Reports as per [facility] Psych Reports as per [facility] Endo Reports no additional complaints Fareed/Lymph Reports no additional complaints Aller/Immun Reports no additional complaints Physical Exam Const General: cooperative, healthy appearing, comfortable, no acute distress, well developed, alert and awake Orientation/consciousness: oriented to person Limitations: no limitations HEENT Head: Yes normal to inspection, Yes normocephalic and Yes atraumatic Ears: hearing grossly normal bilaterally Neck Neck: Yes normal visual inspection and Yes trachea midline Chest Chest palpation & inspection: normal inspection of the chest Resp Effort & Inspection: normal respiratory effort and able to speak in complete sentences Cardio Rate: regular rate Neuro General: oriented to person Psych Appearance: grossly normal and well kempt Speech and movement: Normal speech and movement present and Clear speech present Affect: Labile affect present and Other affect and mood findings present (at times patient was emotional throughout todays) Attitude: cooperative Thought process: Other thought process findings present (patient developmentally delayed ) Insight: Limited insight present (Psych) Judgement: Limited judgement present (Psych) Office Procedures Post Void Residual Post Residual Void Post Void Residual (PVR): 148 [id number] Void Residual by ultrasound Assessment & Plan Assessment & Plan (1) Incomplete bladder emptying: Code(s): R33.9 - Retention of urine, unspecified (2) Enureses: Code(s): R32 - Unspecified urinary incontinence Plan Unable to obtain urine for urinalysis; patient unable to void however PVR 48ml's. Patient denies any bothersome urinary symptoms. She reports to be happy with her current voiding parameters on imipramine and bethanechol; will continue. Continue urological medications as discussed and prescribed. Continue double voiding and scheduled toileting. Will obtain retroperitoneal ultrasound prior to next follow-up appointment as discussed Follow-up in 6 months with PVR; or sooner with any issues, concerns, and or questions. Orders: Orders AMB Post Void Residual by ultrasound Today R33.9 - Retention of urine, unspecified US retroperitoneal comp Today R32 - Unspecified urinary incontinence, R33.9 - Retention of urine, unspecified Patient Instructions: The patient had an opportunity to ask questions regarding the treatment plan. All questions were answered. Physical exam, labs, and imaging were discussed and reviewed in detail. As well as risks, benefits, and discussion of treatment choices. No major barriers to understanding were identified. The patient expressed understanding and agreement with the above treatment plan. The patient was made aware they should contact our office by phone for worsening of their current condition, the appearance of new symptoms, or with any questions or concerns. Compliance is encouraged with any medications and follow up testing that is ordered. It is a privilege to be allowed the opportunity to participate in? your urological care.? Again, if you have any questions or concerns If you have any questions or concerns please do not hesitate to contact me. The office is [phone]. This note is constructed using voice recognition software. While every effort has been made to ensure accuracy medical physics professor errors may have been included. Yours sincerely, ANN Marin- Coding Level of Care Code Est Pt Level 3 (75739) Diagnoses Incomplete bladder emptying R33.9 Enureses R32 CPT Codes Post Residual Void - PVR CPT Code: 05071-[id number] Void Residual by ultrasound ([id number])
== END 2023-07-08 11:25 | disposition home or self-care (01) ==
PROVIDERS: PCP Student in an Organized Health Care Education/Training Program; Visit Provider Nurse Practitioner Family
DX: R33.9 Retention of urine, unspecified (principal); R32 Unspecified urinary incontinence
CPT/HCPCS: 99213

== ENCOUNTER → 2023-07-08 10:37 | Outpatient (BNVA) | payer MEDICAID, SELFPAY | PROVIDERS: PCP Student in an Organized Health Care Education/Training Program; Visit Provider Nurse Practitioner Family | DX: R33.9 Retention of urine, unspecified (principal); R32 Unspecified urinary incontinence | CPT/HCPCS: 51798; 99212 ==

== ENCOUNTER 2023-07-30 10:44 | Outpatient (REF) | payer MEDICAID, SELFPAY ==
--- NOTE | ~2023-07-30 | US_ITS ---
EXAMINATION: US RETROPERITONEAL COMPLETE (RENAL) CLINICAL INFORMATION: Retention of urine, unspecified. COMPARISON: CT abdomen and pelvis without and with contrast 10/29/2017. TECHNIQUE: Real-time imaging of the kidneys and bladder. FINDINGS: RIGHT KIDNEY: 10.0 x 4.9 x 5.0 cm (SAG x AP x TRV). The kidney is normal in size, contour, and echogenicity. Renal cortical thickness is normal. No calculi or focal parenchymal lesions. No hydronephrosis. LEFT KIDNEY: 10.6 x 5.5 x 5.0 cm (SAG x AP x TRV). The kidney is normal in size, contour, and echogenicity. Renal cortical thickness is normal. No calculi or focal parenchymal lesions. No hydronephrosis. BLADDER: Partially distended. Bilateral ureteral jets are demonstrated. Prevoid bladder volume is 134 mL. Postvoid bladder volume is 2 mL. ADDITIONAL FINDINGS: A 6.9 x 5.0 x 6.4 cm simple appearing right ovarian cyst is noted. This is a chronic finding, which on the CT abdomen and pelvis dated 10/29/2017 showed dimensions of 5.8 x 4.7 x 6.0 cm. US/US retroperitoneal comp IMPRESSION: 1. Unremarkable ultrasound appearance of the kidneys. 2. A 6.9 cm in maximal diameter right ovarian cyst is seen, mildly increased from the CT abdomen and pelvis dated 10/29/2017. Gynecology evaluation and management is recommended. Consider follow-up ultrasound examination in 6 months to ensure continued stability. Whether this cyst presently exerts pressure upon the urinary bladder or right ureter is uncertain.
== END 2023-07-30 10:45 | disposition home or self-care (01) ==
LOC: HO.HMGCX 10:44
PROVIDERS: PCP Student in an Organized Health Care Education/Training Program; Visit Provider Nurse Practitioner Family
DX: R33.9 Retention of urine, unspecified (principal); R32 Unspecified urinary incontinence
CPT/HCPCS: 76770

== ENCOUNTER 2023-11-27 09:32 | Outpatient (REF) | payer MEDICAID, SELFPAY ==
--- NOTE | ~2023-11-27 | FL_ITS ---
EXAMINATION: XR FLUOROSCOPY UPPER GI WITH AIR CLINICAL INFORMATION: Dysphagia COMPARISON: None TECHNIQUE: Fluoroscopic air contrast upper GI examination was performed utilizing standard techniques with thin and thick barium and effervescent granules. Numerous spot images were obtained. FINDINGS: Lateral cine images of the oropharynx and hypopharynx demonstrate normal swallow mechanism with normal epiglottic inversion and soft palate elevation. There is trace laryngeal penetration with thick barium. No tracheal penetration, glottic or subglottic aspiration identified. No nasopharyngeal reflux present. Normal-appearing hypopharynx. Mild cricopharyngeal achalasia is present. Dual and single contrast images of the esophagus demonstrate normal caliber, contour, and mucosal pattern. No evidence of mass, or ulcerations identified. Essentially normal GE junction aside from a small type I hiatus hernia. There is to and fro motion of barium column with nonpropulsive tertiary contractions noted throughout the esophagus. Small type I hiatal hernia is present. Significant gastroesophageal reflux is seen up to thoracic inlet. Dual contrast and single contrast images of the stomach demonstrated normal contour and mucosal pattern without evidence of mass, ulceration, or other abnormality. Contrast freely passed into the gastric antrum and duodenal bulb without delay. Single and air-contrast images of the duodenal bulb demonstrate no abnormality. The duodenal sweep has a normal appearance, course, and mucosal fold appearance. The imaged proximal jejunum has a normal fold pattern and caliber. FLUOROSCOPY TIME: 4 minutes 20 seconds Number of Spot Images: 10 Number of Cine: 14 DOSE AREA PRODUCT: 2383 uGy-m2 (microgray-meter squared) FL/FL barium swallow with air IMPRESSION: 1.Trace laryngeal penetration with thick barium. No subglottic aspiration. 2. Small lateral pharyngeal diverticulum. 3. Mild cricopharyngeal achalasia. 4. Significant GE reflux. 5. Esophageal dysmotility, moderate. 6. Small type I hiatus hernia. 7. Normal stomach, duodenum. This procedure was performed by Lázaro Joseph PA-C, and supervised by Dr. Serrano
== END 2023-11-27 09:33 | disposition home or self-care (01) ==
LOC: HO.XRAY 09:32
PROVIDERS: PCP Student in an Organized Health Care Education/Training Program; Visit Provider Student in an Organized Health Care Education/Training Program
DX: R13.19 Other dysphagia (principal)
CPT/HCPCS: 74221

== ENCOUNTER → 2023-11-27 09:34 | Outpatient (BNV) | payer MEDICAID, SELFPAY | PROVIDERS: PCP Student in an Organized Health Care Education/Training Program; Visit Provider Physician Assistant Surgical | DX: R13.10 Dysphagia, unspecified (principal) | CPT/HCPCS: 74246 ==

== ENCOUNTER 2024-01-06 10:08 | Outpatient (AMB) | payer MEDICAID, SELFPAY ==
--- NOTE | 2024-01-06 10:13 | A.OFFVIS_ITS ---
Intake Visit Reasons: 6m/US/PVR(set) Intake Note: Patient is present for follow up retention/incontinence Urology Medications: Bethanechol Blood Thinner: none PVR: 106ml's Dimpling Machine Operator Required: Yes Dimpling Machine Operator Name: YISSEL PASCUALVINNIE Accompanied by: AZURE ARCHITECT Allergies hydrocortisone Allergy (Unknown, Verified 01/06/24 10:46) Unknown olanzapine [From ZYPREXA] Allergy (Unknown, Verified 01/06/24 10:46) UNKNOWN quetiapine [From SEROQUEL] Allergy (Unknown, Verified 01/06/24 10:46) UNKNOWN Pramoxine HCl Allergy (Unknown, Uncoded 01/06/24 10:46) Unknown Skin Cleanser Allergy (Unknown, Uncoded 01/06/24 10:46) Unknown Medication List - Last Reconciled 01/06/24 by ANN Marin-VALERIA atorvastatin 40 mg PO QPM benztropine 0.5 mg PO BID bethanechol chloride 50 mg PO BID 90 days calcium carbonate-vitamin D3 500 mg-10 mcg (400 unit) 1 tab PO DAILY cetirizine 10 mg PO DAILY citalopram 20 mg PO DAILY divalproex (Depakote) 2 tabs PO BEDTIME docusate sodium (DOK) 0 mg PO fluphenazine HCl mg PO fluticasone propionate 50 mcg/actuation 1 spray intranasal DAILY imipramine HCl 20 mg (2 x 10 mg) PO BEDTIME 90 days lorazepam (Ativan) 1 tab PO TID PRN olanzapine 10 mg PO BEDTIME omeprazole 20 mg PO DAILY peg 400-propylene glycol 0.4-0.3 % (Lubricant Eye (PG-PEG 400)) 1 drp ophthalmic (eye) BID trazodone 2 tabs PO BEDTIME HPI Comments Details: Rebecca is a pleasant 58-year-old female patient of Dr. Keys. She presents today for follow-up regarding her overactive bladder. She has a past medical history of arthritis, depression, elevated cholesterol, enuresis, GERD, anxiety, developmental delay, and bipolar disorder. [facility] accompanied by her AZURE ARCHITECT worker at today's visit. In discussion with the patient today she reports to be doing and feeling well. She reports since her last office visit here she has completed her retroperitoneal ultrasound that was ordered. These results were reviewed with the patient and her AZURE ARCHITECT worker today. Bilateral kidneys with no renal calculi, lesions, and or hydronephrosis. Bilateral ureteral jets are demonstrated. Pre void bladder volume is approximately 135 mL. Postvoid bladder volume is approximately 0 mL. 6.9 cm simple appearing right ovarian cyst is noted. This is a chronic finding however it does appear slightly increased since previous imaging in 2018. 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 Discussed following up to discussed these results and be sure this is a chronic and stable finding. Patient does report a history of ongoing lower urinary tract symptoms however currently denies any bothersome urinary issues or concerns. She currently denies urinary urgency, urinary frequency, incontinence, nocturia, hematuria, dysuria, foul smelling urine, changes to urinary stream, flank pain, fever, and or chills. She is happy with her current voiding parameters. She reports compliance with imipramine and bethanechol as prescribed. Patient does have developmental delay and die technician assists providing patient medical history during todays office visit. In office urinalysis results reviewed with the patient today. PVR 106 mL. She otherwise offers no other issues or concerns at this time [facility] Medical History COVID-19 vaccine administered History of COVID-19 History of anxiety Arthritis Elevated cholesterol GERD (gastroesophageal reflux disease) Depression History of developmental delay Hx of bipolar disorder Enureses Surgical History H/O colonoscopy Social History Household Members: Other Are you a primary palliative care nurse to a significant other at home: No Do you presently have visiting nurse or other home services: Yes (resides in penitentiary) Alcohol intake: never Patient Tobacco Use Status: Never used Tobacco Review of Systems Const Reports as per HPI Eyes Reports no additional complaints ENT Reports no additional complaints Card Reports no additional complaints Resp Reports no additional complaints GI Reports as per HPI Reports as per HPI Musc Reports as per HPI Neuro Reports as per HPI Psych Reports as per HPI Endo Reports no additional complaints Fareed/Lymph Reports no additional complaints Aller/Immun Reports no additional complaints Physical Exam Const General: cooperative, healthy appearing, comfortable, no acute distress, well developed, alert and awake Orientation/consciousness: oriented to person Limitations: no limitations HEENT Head: Yes normal to inspection, Yes normocephalic and Yes atraumatic Ears: hearing grossly normal bilaterally Neck Neck: Yes normal visual inspection and Yes trachea midline Chest Chest palpation & inspection: normal inspection of the chest Resp Effort & Inspection: normal respiratory effort and able to speak in complete sentences Cardio Rate: regular rate Neuro General: oriented to person Psych Appearance: grossly normal and well kempt Speech and movement: Normal speech and movement present and Clear speech present Affect: Labile affect present and Other affect and mood findings present (at times patient was emotional throughout todays) Attitude: cooperative Thought process: Other thought process findings present (patient developmentally delayed ) Insight: Limited insight present (Psych) Judgement: Limited judgement present (Psych) Office Procedures Post Void Residual Post Residual Void Post Void Residual (PVR): 106 [id number]-[place] Void Residual by ultrasound Results AMB Urinalysis, Automated UA Leukoctes 15 Shaista/uL Last Edit by Tactile on 01/06/24 10:46 UA Nitrite Negative Last Edit by Tactile on 01/06/24 10:46 UA Urobilinogen 0.2 mg/dL Last Edit by Tactile on 01/06/24 10:46 UA Protein 15 mg/dL Last Edit by Tactile on 01/06/24 10:46 UA pH 6.0 Last Edit by Tactile on 01/06/24 10:46 UA Blood 25 Sam/uL Last Edit by Tactile on 01/06/24 10:46 UA Specific [place] 1.020 Last Edit by Tactile on 01/06/24 10:46 UA Ketone Positive Last Edit by Tactile on 01/06/24 10:46 UA Bilirubin 0 mg/dL Last Edit by Tactile on 01/06/24 10:46 UA Glucose 0 mg/dL Last Edit by Tactile on 01/06/24 10:46 Results Reviewed Results Reviewed: Date of Service: 07/30/23 EXAMINATION: US RETROPERITONEAL COMPLETE (RENAL) FINDINGS: RIGHT KIDNEY: 10.0 x 4.9 x 5.0 cm (SAG x AP x TRV). The kidney is normal in size, contour, and echogenicity. Renal cortical thickness is normal. No calculi or focal parenchymal lesions. No hydronephrosis. LEFT KIDNEY: 10.6 x 5.5 x 5.0 cm (SAG x AP x TRV). The kidney is normal in size, contour, and echogenicity. Renal cortical thickness is normal. No calculi or focal parenchymal lesions. No hydronephrosis. BLADDER: Partially distended. Bilateral ureteral jets are demonstrated. Prevoid bladder volume is 134 mL. Postvoid bladder volume is 2 mL. ADDITIONAL FINDINGS: A 6.9 x 5.0 x 6.4 cm simple appearing right ovarian cyst is noted. This is a chronic finding, which on the CT abdomen and pelvis dated 10/29/2017 showed dimensions of 5.8 x 4.7 x 6.0 cm. IMPRESSION: 1. Unremarkable ultrasound appearance of the kidneys. 2. A 6.9 cm in maximal diameter right ovarian cyst is seen, mildly increased from the CT abdomen and pelvis dated 10/29/2017. Gynecology evaluation and management is recommended. Consider follow-up ultrasound examination in 6 months to ensure continued stability. Whether this cyst presently exerts pressure upon the urinary bladder or right ureter is uncertain. Assessment & Plan Assessment & Plan (1) Incomplete bladder emptying: Code(s): R33.9 - Retention of urine, unspecified Category: Medical (2) Enureses: Code(s): R32 - Unspecified urinary incontinence Category: Medical Plan In office urinalysis results reviewed with the patient today; as noted above. PVR 106 mL. She currently denies any bothersome urinary issues or concerns. Recent retroperitoneal ultrasound results reviewed with the patient and her AZURE ARCHITECT worker today. Continue bethanechol and imipramine as discussed and prescribed. She is happy with the current voiding parameters. Discussed follow-up with cart pusher to assess for stability of chronic ovarian cyst that was noted on recent retroperitoneal ultrasound. Continue limiting fluids 2-3 hours prior to bed to decrease episodes of enuresis. Follow-up in 6 months with PVR; or sooner with any issues, concerns, and or questions. Orders: Orders AMB Urinalysis Automated Today Z13.9 - Encounter for screening, unspecified AMB Post Void Residual by ultrasound Today R33.9 - Retention of urine, unspecified Patient Instructions: The patient had an opportunity to ask questions regarding the treatment plan. All questions were answered. Physical exam, labs, and imaging were discussed and reviewed in detail. As well as risks, benefits, and discussion of treatment choices. No major barriers to understanding were identified. The patient expressed understanding and agreement with the above treatment plan. The patient was made aware they should contact our office by phone for worsening of their current condition, the appearance of new symptoms, or with any questions or concerns. Compliance is encouraged with any medications and follow up testing that is ordered. It is a privilege to be allowed the opportunity to participate in? your urological care.? Again, if you have any questions or concerns If you have any questions or concerns please do not hesitate to contact me. The office is [phone]. This note is constructed using voice recognition software. While every effort has been made to ensure accuracy expeditionary force combat skills errors may have been included. Yours sincerely, DIANA Marin Coding Level of Care Code Est Pt Level 3 (49373) Complex EM visit Add On G2211 Diagnoses Incomplete bladder emptying R33.9 Enureses R32 CPT Codes Post Residual Void - PVR CPT Code: 18453-Dxdx Void Residual by ultrasound ([id number])
--- OUTSIDE RECORDS SUMMARY | 2024-01-08 08:01 | XMS_ITS | Patient Health Record ---
Author Organization [facility] Address [address] [place] [id number] Care Team Providers Care News Content Specialist Name Role Phone DELANEY CLAYTON Primary Care Provider Khris Russ [phone] ALLERGIES Allergen (clinical drug ingredient) Drug/Non Drug Allergy documented on EMR Reaction Allergy Type Onset Date Status quetiapine Seroquel Unknown Drug Allergy Active REASON FOR REFERRAL No Information MEDICATIONS Medication SIG (Take, Route, Frequency, Duration) Notes Start Date End Date Status CeleXA 40 MG 0.5 tablet Orally Once a day Active Ativan 0.5 MG 1 tablet as needed Orally as directed /as needed Active Flonase Allergy Relief 50 MCG/ACT 1 spray in each nostril Nasally Once a day for 30 day(s) Active Oyster Shell Calcium + D Active Lipitor 40 MG 1 tablet Orally Once a day for 30 day(s) Active Lubricant Eye Drops Active fluPHENAZine HCl 2.5 MG 1 tablet Orally Once a day for 30 day(s) Active Cetirizine HCl 10 MG Orally Active Colace 100 MG 1 capsule as needed Orally twice a day Active Calcium + Vitamin D3 500-400 Active Bethanechol Chloride 50 MG 1 tablet 1 hour before or 2 hours after meals Orally Three times a day for 30 day(s) Active Depakote 1000 mg Act temi MiraLax (colon prep) 17 GM/SCOOP 1/2 of a 238Gm bottle mixed with 32 ounces of Gatorade 2 days before the colonoscopy, and then 1 238 GM bottle mixed with 64 ounces of Gatorade or Crystal Light the day before the colonoscopy Orally Take the 1/2 bottle 2 days before the colonoscopy, and begin the full bottle at 5:00 p.m. the day before the procedure for 2 days 12/09/2022 Active Tofranil Active ZyPREXA 5 MG Orally 10 mg in the evening Active Tylenol 500 mg Activ e Prilosec Active Dulcolax (colon prep) 5 MG Take 2 Dulcolax 2 days before the colonoscopy, and then take 2 at 3:00 p.m and at 7:00p.m. on the day before the colonoscopy Orally 2 tablets once two days before the colonoscopy, and two tablets twice a day for one day for 2 days 12/09/[address] [place] 3 Active IMMUNIZATIONS Vaccine Route Administration Date Status Comme nts Influenza Unknown 04/26/2020 Administered SOCIAL HISTORY Tobacco Use: Social History Observation Description Date Details (start date - stop date) Never Smoker NA - NA Sex Assigned At : Social History Observation Description Sex Assigned At Unknown Tobacco Use/Smoking Question Answer Notes Patient is a nonsmoker Alcohol Screen Question Answer Notes Did you have a drink containing alcohol in the p ast year? No Points 0 Interpretation Negative PROBLEMS Problem Type ICD Code Onset Dates Problem Status W/U Status Risk SNOMED Code Notes Problem Weight loss (R63.4) Active confirmed 89 514435 Problem Encounter for screening for malignant neoplasm of colon (Z12.11) Active confirmed 231654649 Problem Esophageal dysphagia (R13.10) Active confirmed 35627262 Problem Abnormal barium swallow (R93.3) Active confirmed 960224746 Problem Gastroesophageal reflux disease without esophagitis (K21.9) Active confirmed 285176239 Problem Constipation, unspecified constipation type (K59.00) Active confirmed 99891258 Encounters Encounter Location Date Provider Diagnosis [facility] Outpatient [address] [place] [phone] 02/19/2023 Khris Cid [facility] [address] [place] [phone] 02/23/2023 Khris Cid [facility] [address] [place] [phone] 03/04/2023 Khris Cid [facility] [address] [place] [phone] 05/30/2023 Khris Cid [employer]MENT Future Test Test Name Order Date COLONOSCOPY 05/06/2017 UPPER GI ENDOSCOPY [place] DILATION OF ESOPH 11/01/2020 COLONOSCOPY 12/05/2022 Insurance Providers Payer Name Payer Address Payer Phone Subscriber Number Group Number Insured Name Patient Relationship to Insured Coverage Start Date Coverage End Date [employer] [address] [place] [phone] [id number] REY MANCIA Self - patient is the insured MEDICAL (GENERAL) HISTORY Medical History History ICD Code Developmental delay disorder Mood disorder--depression, bipolar GERD Arthriis Denies AR,DM,CVA,Lung disease,renal dise ase hyperlipidemia depression allergies anxiety insomnia acid reflux constipation low vitamin D urinary incontinence Colonoscopy 06/2017--negativ e for polyps but it was a very limited prep and she is in a recall for 06/2022 EGD 10/2020-small hiatal katia ia, no esophageal stricture, biopsies negative for eosinophilic esophagitis, dilation of the gastroesophageal junction was done with a large balloon up to 20 mm although without any real appreciable effect Surgical History Surgery Date(Month/Year)
== END 2024-01-06 10:45 | disposition home or self-care (01) ==
LOC: HO.HUSH 10:08
PROVIDERS: PCP Student in an Organized Health Care Education/Training Program; Visit Provider Nurse Practitioner Family
DX: R33.9 Retention of urine, unspecified (principal); R32 Unspecified urinary incontinence; Z13.9 Encounter for screening, unspecified
CPT/HCPCS: 99213; G2211

== ENCOUNTER → 2024-01-06 10:08 | Outpatient (BNVA) | payer MEDICAID, SELFPAY | PROVIDERS: PCP Student in an Organized Health Care Education/Training Program; Visit Provider Nurse Practitioner Family | DX: R33.9 Retention of urine, unspecified (principal); R32 Unspecified urinary incontinence; N32.81 Overactive bladder | CPT/HCPCS: 51798; 81003; 99212 ==

== ENCOUNTER 2024-01-13 08:41 | Outpatient (REF) | payer MEDICAID, SELFPAY ==
[2024-01-13 15:04] LABS: Alanine Aminotransferase 21 U/L (0-31); Albumin Level 4.1 g/dL (3.5-5.0); Alkaline Phosphatase 76 U/L (39-117); Anion Gap 15 (12-20); Aspartate Amino Transferase 20 U/L (5-31); Bilirubin Direct < 0.2 mg/dL (0.0-0.5); Bilirubin Total 0.2 mg/dL (0.0-1.0); Blood Urea Nitrogen 15 mg/dL (9-16); Calcium 10.2 mg/dL (8.4-10.2); Carbon Dioxide 29 mmol/L (22-29); Chloride 102 mmol/L (96-108); Cholesterol 222 mg/dL (<200); Estimated Glomerular Filt Rate > 60; Glucose Random 111 mg/dL (60-115); HDL Cholesterol 41 mg/dL (>40); LDL Cholesterol Calculated 133 mg/dL (<100); Potassium 5.1 mmol/L (3.3-5.1); Sodium 141 mmol/L (135-145); Total Protein 7.6 g/dL (6.5-8.0); Triglycerides 242 mg/dL (<150)
[2024-01-13 15:35] LABS: ~HepC Num1 0.06 S/CO (0.00-0.79); ~Hepatitis C Antibody Nonreactive (Nonreactive)
[2024-01-17 19:49] LABS: HIV RNA PCR Qn Copies Not Detected Copies/mL; HIV RNA PCR Qn Log Copies Not Detected Log cps/mL
== END 2024-01-13 08:42 | disposition home or self-care (01) ==
LOC: HO.CHCLDS 08:41
PROVIDERS: Visit Provider Student in an Organized Health Care Education/Training Program
DX: Z00.00 Encounter for general adult medical examination without abnormal findings (principal); I10 Essential (primary) hypertension
CPT/HCPCS: 36415; 80048; 80061; 80076; 86803; 87536; 87900

== ENCOUNTER 2024-01-26 18:08 | Outpatient (REF) | payer MEDICAID, SELFPAY ==
[2024-02-03 11:39] LABS: HPV mRNA E6/E7 Not Detected (Not Detected)
== END 2024-01-26 18:09 | disposition home or self-care (01) ==
LOC: HO.HHCLNP 18:08
PROVIDERS: Visit Provider Advanced Practice Midwife
DX: Z12.4 Encounter for screening for malignant neoplasm of cervix (principal)
CPT/HCPCS: 36415; 87624; 88175

== ENCOUNTER 2024-02-03 15:31 | Outpatient (REF) | payer MEDICAID, SELFPAY ==
--- NOTE | ~2024-02-03 | US_ITS ---
EXAMINATION: US PELVIS CLINICAL INFORMATION: Follow-up right ovarian cyst. COMPARISON: None available. TECHNIQUE: Ultrasound of the pelvis is performed using both transabdominal and transvaginal transducers along with Doppler. Transvaginal imaging is performed due to inadequate visualization transabdominally. FINDINGS: Uterus: The uterus is anteverted, anteflexed and measures 7.8 x 2.7 x 3.4 cm. The double wall endometrial thickness is 0.21 cm. The uterus is smooth in contour and has normal myometrial echogenicity. No visible fibroid. Adnexa: Both ovaries are visualized. There is normal color flow to the adnexa. There is no ovarian torsion. There is no pelvic ascites or fluid collection. Right ovary measures 6.5 x 6.6 x 5.39 cm. Volume 129.2 There is a large complex anechoic cyst measuring 5.2 x 5.1x 5.3 cm There is normal arterial and venous flow seen in the right ovary on Doppler exam. Left ovary measures 2.3 x 1.7 x 2.6 cm. Volume 5.3 mL normal arterial and venous flow seen on Doppler exam. US/US pelvic and transvaginal IMPRESSION: The uterus is unremarkable. Large complex cyst right ovary measuring 5.9 cm. Left ovary is unremarkable. There is no free fluid in the cul-de-sac.
== END 2024-02-03 15:32 | disposition home or self-care (01) ==
LOC: HO.HMGCX 15:31
PROVIDERS: PCP Student in an Organized Health Care Education/Training Program; Visit Provider Advanced Practice Midwife
DX: N83.201 Unspecified ovarian cyst, right side (principal)
CPT/HCPCS: 76830; 76856

== ENCOUNTER → 2024-02-09 09:00 | Outpatient (BNV) | payer MEDICAID, SELFPAY | PROVIDERS: PCP Student in an Organized Health Care Education/Training Program; Visit Provider Radiology Diagnostic Radiology | DX: N63.24 Unspecified lump in the left breast, lower inner quadrant (principal) | CPT/HCPCS: 76642; 77062; 77066 ==

== ENCOUNTER 2024-02-09 09:10 | Outpatient (REF) | payer MEDICAID, SELFPAY ==
--- NOTE | ~2024-02-09 | US_ITS ---
EXAMINATION: MM DIAGNOSTIC DIGITAL BREAST TOMOSYNTHESIS, BILATERAL US BREAST LIMITED, LEFT MAMMOGRAPHY: CLINICAL INFORMATION: Left breast lump palpated by referring clinician. According to the referring clinician the 8-9 o'clock position. COMPARISON: Mammography: This study is compared with prior mammography dating back to 2020. TECHNIQUE: Digital breast tomosynthesis is performed in both the craniocaudal and mediolateral oblique views along with computer-aided detection (CAD). Synthesized 2D images are generated from the tomosynthesis. FINDINGS: There are scattered areas of fibroglandular density (ACR BI-RADS breast composition Category b). There are no significant masses, abnormal calcifications, or other abnormalities. ULTRASOUND: CLINICAL INFORMATION: Physician palpated lump 8 9:00 region left breast COMPARISON: None TECHNIQUE: Targeted sonographic evaluation of the 7-12 o'clock region of the left breast was performed using a high frequency linear transducer. Selected archived documentation. FINDINGS: LEFT BREAST: There are no abnormalities in the 7-12 o'clock region of the left breast. US/US breast LT limited mamm only IMPRESSION: No mammographic signs of malignancy. No sonographic abnormalities in the left breast in the 7-12 o'clock region. Clinical follow-up advised. OVERALL ASSESSMENT: Mammography: BI-RADS 1 - Negative Ultrasound: BI-RADS 1 - Negative RECOMMENDATION: 1. Patient should be managed based on the clinical impression. 2. Otherwise, routine annual screening mammography. Results were provided to the patient at time of visit by the technologist. This patient's information was entered into a reminder system with a target due date for their next mammogram.
== END 2024-02-09 09:11 | disposition home or self-care (01) ==
LOC: HO.MAMMO 09:10
PROVIDERS: PCP Student in an Organized Health Care Education/Training Program; Visit Provider Advanced Practice Midwife
DX: N63.24 Unspecified lump in the left breast, lower inner quadrant (principal)
CPT/HCPCS: 76642; 77062; 77066

== ENCOUNTER 2024-02-10 09:11 | Outpatient (REF) | payer MEDICAID, SELFPAY ==
[2024-02-12 11:48] LABS: CA-125 9 U/mL (<35)
== END 2024-02-10 09:12 | disposition home or self-care (01) ==
LOC: HO.CHCLDS 09:11
PROVIDERS: Visit Provider Advanced Practice Midwife
DX: N83.201 Unspecified ovarian cyst, right side (principal)
CPT/HCPCS: 36415; 86304

== ENCOUNTER 2024-02-17 11:32 | Outpatient (REF) | payer MEDICAID, SELFPAY ==
[2024-02-17 14:19] LABS: Estimated Average Glucose 134 mg/dL; Hemoglobin A1c % 6.3 % (<6.0)
== END 2024-02-17 11:33 | disposition home or self-care (01) ==
LOC: HO.CHCLDS 11:32
PROVIDERS: Visit Provider Student in an Organized Health Care Education/Training Program
DX: E78.00 Pure hypercholesterolemia, unspecified (principal)
CPT/HCPCS: 36415; 83036

== ENCOUNTER 2024-06-02 08:37 | Outpatient (AMB) | payer MEDICAID, SELFPAY ==
--- NOTE | 2024-06-02 08:37 | MHC.OFFVIS ---
Vital Signs 06/02/24 08:38 Height 5 ft Weight 149 lb 14.629 oz BMI 29.3 BP 150/68 H Blood Pressure Location Rt brachial Position Sitting Pulse 88 Pulse Source Pulse Oximeter Pulse Oximetry (%) 97 Oxygen Delivery Method Room Air Intake Visit Reasons: pre colonoscopy Intake Note: Relevant Flags or Indicators ? Requires Patient Coordinator Front Desk? Tereza Fernandez presents in office today for a scheduled colonoscopy consultation. CC; Labs performed via PCP and other specialty. Pt last colo as of ~ 2016 ? Relevant GI Sx as reported per pt? None ? Hx of any recent surgeries? None ? Pertinent FMHx? None Patient Coordinator Front Desk Required: Yes Patient Coordinator Front Desk Services: Patient Coordinator Front Desk Offered & Declined Patient Coordinator Front Desk Name: Healthcare Inspector Filters Information Interpreted: clinical only Accompanied by: Other Relationship Allergies hydrocortisone Allergy (Unknown, Verified 06/02/24 08:38) Unknown olanzapine [From ZYPREXA] Allergy (Unknown, Verified 06/02/24 08:38) UNKNOWN quetiapine [From SEROQUEL] Allergy (Unknown, Verified 06/02/24 08:38) UNKNOWN Pramoxine HCl Allergy (Unknown, Uncoded 01/06/24 10:46) Unknown Skin Cleanser Allergy (Unknown, Uncoded 01/06/24 10:46) Unknown HPI HPI pre colonoscopy: Details: LAST COLONOSCOPY: IMPRESSION: 1. Small hiatal hernia. 2. Status post balloon dilation of gastroesophageal junction. 3. Rule out eosinophilic esophagitis. PLAN: The results of biopsies will be checked. She will continue her daily Prilosec. Instructions have been given that as long as she is doing well from the swallowing standpoint, she could see me on a p.r.n. basis and she will be due for a followup colonoscopy in 2021. If she continues to have problems, instructions have been given that I should be advised of that and we would want to proceed with further workup including a possible modified barium swallow with [facility] as well as possible esophageal motility studies. This has been discussed with Demi, her staffing program manager from the correction. TODAY'S VISIT: 58-year-old female with past medical history of GERD, anxiety, bipolar disorder, developmental delay, hypercholesteremia is here today for initial consultation. As mentioned above patient had colonoscopy done by Dr. Cid twice the last one was in 2017. Recommendation was to repeat colonoscopy in 2021 and follow-up with and for further workup. Patient has not followed up with his office in quite some time and would like to stay here. Patient reports dysphagia currently is on as special soft diet. No choking episodes. Patient is constantly reminded to chew things slowly. Patient is taking omeprazole and for the most part states that it is working. Occasional acid reflux and epigastric discomfort. Patient reports constipation. Sometimes no BM for 2-3 days. Denies any family history of gastrointestinal disease, colon polyps, or CRC.? Denies history of difficulty with sedation or anesthesia in the past.? Negative for history of sleep apnea.?? Patient is not on any anticoagulation [facility] Medical History COVID-19 vaccine administered History of COVID-19 History of anxiety Arthritis Elevated cholesterol GERD (gastroesophageal reflux disease) Depression History of developmental delay Hx of bipolar disorder Enureses Surgical History H/O colonoscopy Social History Household Members: Other Are you a primary manager medicare to a significant other at home: No Do you presently have visiting nurse or other home services: Yes (resides in correction) Alcohol intake: never Patient Tobacco Use Status: Never used Tobacco Review of Systems Const Denies weight gain and Denies weight loss ENT Reports no additional complaints, Denies dysphagia and Denies odynophagia Card Reports no additional complaints Resp Reports no additional complaints GI Denies abdominal pain, Denies belching, Denies melena, Reports bloating, Denies change in bowel habits, Reports constipation, Denies dysphagia, Denies excessive flatus, Denies dyspepsia, Denies heartburn, Denies diarrhea, Denies loose stools, Denies nausea, Denies odynophagia and Denies vomiting Reports no additional complaints Musc Reports no additional complaints Neuro Reports no additional complaints Psych Reports no additional complaints Endo Reports no additional complaints Physical Exam Vital Signs: Last Vital Signs Pulse 88 06/02/24 08:38 BP 150/68 H 06/02/24 08:38 Pulse Ox 97 06/02/24 08:38 Oxygen Delivery Method Room Air 06/02/24 08:38 BMI result Body Mass Index 29.3 Const General: cooperative, healthy appearing, comfortable, no acute distress, well developed, alert and awake Orientation/consciousness: oriented to person Limitations: no limitations Neck Neck: Yes normal visual inspection and Yes trachea midline Resp Effort & Inspection: normal respiratory effort and able to speak in complete sentences Cardio Rate: regular rate Neuro General: oriented to person Psych Appearance: grossly normal and well kempt Speech and movement: Normal speech and movement present and Clear speech present Affect: Labile affect present and Other affect and mood findings present (at times patient was emotional throughout todays) Attitude: cooperative Thought process: Other thought process findings present (patient developmentally delayed ) Insight: Limited insight present (Psych) Judgement: Limited judgement present (Psych) Assessment & Plan Assessment & Plan (1) Screen for colon cancer: Code(s): Z12.11 - Encounter for screening for malignant neoplasm of colon (2) Constipation: Code(s): K59.00 - Constipation, unspecified Qualifiers: Constipation type: slow transit constipation Qualified Code(s): K59.01 - Slow transit constipation (3) GERD (gastroesophageal reflux disease): Code(s): K21.9 - Gastro-esophageal reflux disease without esophagitis Qualifiers: Esophagitis presence: esophagitis presence not specified Qualified Code(s): K21.9 - Gastro-esophageal reflux disease without esophagitis (4) Dysphagia: Code(s): R13.10 - Dysphagia, unspecified Qualifiers: Dysphagia type: pharyngoesophageal phase Qualified Code(s): R13.14 - Dysphagia, pharyngoesophageal phase (5) Postprandial epigastric pain: Code(s): R10.13 - Epigastric pain Plan Patient denies any GI, cardiac or respiratory symptoms.? Occasional constipation will order patient Dulcolax to be taking daily. Denies any issues with anesthesia in the past.? Denies any history of sleep apnea.? No history infectious diseases in the past or present.? Not on any anticoagulation therapy.? No family history of colon cancer or polyps.? Patient denies melena, hematochezia, unintentional weight loss or ribbon like stools.? Patient reports dysphagia and occasional reflux. Currently on omeprazole. Patient will be sent for upper endoscopy as well. Patient may require dilation. Discussed with patient's staffing program manager at length the pre-procedure,? prep, diet & medications as well as what to expect prior, during and after the procedure.?? Stressed the importance of good bowel prep.? Recommended the use of Vaseline or Calmoseptine OTC & baby wipes with bowel movements to promote comfort.? ?Patient verbalizes understanding and agrees to plan of care.? She was given the opportunity to ask questions and all questions answered.? We will see her after the procedure.? Medications: New bisacodyl (Dulcolax (bisacodyl)) 10 mg (2 x 5 mg) PO BEDTIME 180 tabs 4RF magnesium citrate Drink one bottle at 17:00 and 2nd bottle at 22:00 296 mL PO ONCE PRN 296 mL 1RF constipation Z12.11 - Encounter for screening for malignant neoplasm of colon Coding Level of Care Code New Pt Level 4 (63993) Diagnoses Screen for colon cancer Z12.11 Slow transit constipation K59.01 Constipation type: slow transit constipation Gastroesophageal reflux disease, unspecified whether esophagitis present K21.9 Esophagitis presence: esophagitis presence not specified Pharyngoesophageal dysphagia R13.14 Dysphagia type: pharyngoesophageal phase Postprandial epigastric pain R10.13 Time Spent (min) 45 Comment 30 minutes spent with patient and additional 15 minutes spent reviewing her records
[2024-06-02 08:38] VITALS: BP 150/68; PULSE 88; O2SAT 97; BMI 29.3
== END 2024-06-02 09:20 | disposition home or self-care (01) ==
PROVIDERS: PCP Student in an Organized Health Care Education/Training Program; Visit Provider Nurse Practitioner Family
DX: Z12.11 Encounter for screening for malignant neoplasm of colon (principal); K59.01 Slow transit constipation; K21.9 Gastro-esophageal reflux disease without esophagitis; R13.14 Dysphagia, pharyngoesophageal phase; R10.13 Epigastric pain; Z01.818 Encounter for other preprocedural examination
CPT/HCPCS: 99204

== ENCOUNTER → 2024-06-02 08:37 | Outpatient (BNVA) | payer MEDICAID, SELFPAY | PROVIDERS: PCP Student in an Organized Health Care Education/Training Program; Visit Provider Nurse Practitioner Family | DX: K59.01 Slow transit constipation (principal); K21.9 Gastro-esophageal reflux disease without esophagitis; R13.14 Dysphagia, pharyngoesophageal phase; R10.13 Epigastric pain; Z12.11 Encounter for screening for malignant neoplasm of colon | CPT/HCPCS: 99212 ==

== ENCOUNTER 2024-06-30 09:37 | Outpatient (AMB) | payer MEDICAID, SELFPAY ==
--- NOTE | 2024-06-30 09:39 | A.OFFVIS_ITS ---
Intake Visit Reasons: 6M/PVr Intake Note: Patient is present for 6M/PVR Urology Medication:NONE Antibiotic Allergy:NONE Blood Thinner:NONE Last PVR:106ML'S Todays PVR:0ML'S Procurement Representative Required: No Allergies hydrocortisone Allergy (Unknown, Verified 06/30/24 10:00) Unknown olanzapine [From ZYPREXA] Allergy (Unknown, Verified 06/30/24 10:00) UNKNOWN quetiapine [From SEROQUEL] Allergy (Unknown, Verified 06/30/24 10:00) UNKNOWN Pramoxine HCl Allergy (Unknown, Uncoded 06/30/24 10:00) Unknown Skin Cleanser Allergy (Unknown, Uncoded 06/30/24 10:00) Unknown Medication List - Last Reconciled 06/30/24 by ANN Marin-VALERIA atorvastatin 40 mg PO QPM benztropine 0.5 mg PO BID bisacodyl (Dulcolax (bisacodyl)) 10 mg (2 x 5 mg) PO BEDTIME calcium carbonate-vitamin D3 500 mg-10 mcg (400 unit) 1 tab PO DAILY cetirizine 10 mg PO DAILY divalproex (Depakote) 2 tabs PO BEDTIME docusate sodium (DOK) 0 mg PO docusate sodium (Colace) 100 mg PO BID fluphenazine HCl mg PO fluticasone propionate 50 mcg/actuation 1 spray intranasal DAILY imipramine HCl 20 mg (2 x 10 mg) PO BEDTIME 90 days lorazepam (Ativan) 1 tab PO TID PRN magnesium citrate 296 mL PO ONCE PRN metformin 500 mg PO DAILY olanzapine 15 mg PO BEDTIME omega-3 fatty acids 1,000 mg PO BID omeprazole 20 mg PO DAILY peg 400-propylene glycol 0.4-0.3 % (Lubricant Eye (PG-PEG 400)) 1 drp ophthalmic (eye) BID HPI Comments Details: Rebecca is a pleasant 58-year-old female patient of Dr. Keys. She presents today for follow-up regarding her overactive bladder. She has a past medical history of arthritis, depression, elevated cholesterol, enuresis, GERD, anxiety, developmental delay, and bipolar disorder. [facility] [place] [facility] and is accompanied by her DUMP MOTORMAN worker at today's visit. In discussion with the patient today she reports to be doing and feeling well. Patient is staff deny any bothersome urinary issues or concerns at this time. She reports compliance with imipramine and bethanechol as prescribed. Previous workup has included a retroperitoneal ultrasound 08/06 noting bilateral kidneys with no renal calculi, lesions, and or hydronephrosis. Bilateral ureteral jets are demonstrated. Pre void bladder volume is approximately 135 mL. Postvoid bladder volume is approximately 0 mL. 6.9 cm simple appearing right ovarian cyst is noted. This is a chronic finding however it does appear slightly increased since previous imaging in 2018. She denies urinary urgency, urinary frequency, incontinence, no cturia, hematuria, dysuria, foul smelling urine, changes to urinary stream, flank pain, fever, and or chills. She is happy with her current voiding parameters. Patient does have developmental delay and stenotypist assists providing patient medical history during todays office visit. Unable to obtain urine for urinalysis however PVR 0 mL. She otherwise offers no other issues or concerns at this time. [facility] Medical History COVID-19 vaccine administered History of COVID-19 History of anxiety Arthritis Elevated cholesterol GERD (gastroesophageal reflux disease) Depression History of developmental delay Hx of bipolar disorder Enureses Surgical History H/O colonoscopy Social History Household Members: Other Are you a primary client care consultant to a significant other at home: No Do you presently have visiting nurse or other home services: Yes ([place]) Alcohol intake: never Patient Tobacco Use Status: Never used Tobacco Review of Systems Const Reports as per HPI Eyes Reports no additional complaints ENT Reports no additional complaints Card Reports no additional complaints Resp Reports no additional complaints GI Reports as per HPI Reports as per HPI Musc Reports as per HPI Neuro Reports as per HPI Psych Reports as per HPI Endo Reports no additional complaints Fareed/Lymph Reports no additional complaints Aller/Immun Reports no additional complaints Physical Exam Const General: cooperative, healthy appearing, comfortable, no acute distress, well developed, alert and awake Orientation/consciousness: oriented to person Limitations: no limitations HEENT Head: Yes normal to inspection, Yes normocephalic and Yes atraumatic Ears: hearing grossly normal bilaterally Neck Neck: Yes normal visual inspection and Yes trachea midline Chest Chest palpation & inspection: normal inspection of the chest Resp Effort & Inspection: normal respiratory effort and able to speak in complete sentences Cardio Rate: regular rate Neuro General: oriented to person Psych Appearance: grossly normal and well kempt Speech and movement: Normal speech and movement present and Clear speech present Affect: Labile affect present and Other affect and mood findings present (at times patient was emotional throughout todays) Attitude: cooperative Thought process: Other thought process findings present (patient developmentally delayed ) Insight: Limited insight present (Psych) Judgement: Limited judgement present (Psych) Office Procedures Post Void Residual Post Residual Void Post Void Residual (PVR): 0 92401-Asay Void Residual by ultrasound Assessment & Plan Assessment & Plan (1) Incomplete bladder emptying: Code(s): R33.9 - Retention of urine, unspecified Category: Medical (2) Enureses: Code(s): R32 - Unspecified urinary incontinence Category: Medical Plan Unable to obtain urine for urinalysis however PVR 0 mL She currently denies any bothersome urinary issues or concerns. Continue bethanechol and imipramine as discussed and prescribed; refills provided She is happy with the current voiding parameters. Continue limiting fluids 2-3 hours prior to bed to decrease episodes of enuresis. Follow-up in 6 months with PVR; or sooner with any issues, concerns, and or questions. Orders: Orders AMB Urinalysis Automated Today Z13.9 - Encounter for screening, unspecified Medications: Refilled imipramine HCl 20 mg (2 x 10 mg) PO BEDTIME 180 tabs 2RF 90 days R32 - Unspecified urinary incontinence bethanechol chloride 50 mg PO BID 180 tabs 3RF 90 days Patient Instructions: The patient had an opportunity to ask questions regarding the treatment plan. All questions were answered. Physical exam, labs, and imaging were discussed and reviewed in detail. As well as risks, benefits, and discussion of treatment choices. No major barriers to understanding were identified. The patient expressed understanding and agreement with the above treatment plan. The patient was made aware they should contact our office by phone for worsening of their current condition, the appearance of new symptoms, or with any questions or concerns. Compliance is encouraged with any medications and follow up testing that is ordered. It is a privilege to be allowed the opportunity to participate in? your urological care.? Again, if you have any questions or concerns If you have any questions or concerns please do not hesitate to contact me. The office is [phone]. This note is constructed using voice recognition software. While every effort has been made to ensure accuracy manager stylist errors may have been included. Yours sincerely, DIANA Marin Coding Level of Care Code Est Pt Level 3 (60329) Diagnoses Incomplete bladder emptying R33.9 Enureses R32 CPT Codes Post Residual Void - PVR CPT Code: 11884-Uojh Void Residual by ultrasound ([id number])
== END 2024-06-30 10:47 | disposition home or self-care (01) ==
PROVIDERS: PCP Student in an Organized Health Care Education/Training Program; Visit Provider Nurse Practitioner Family
DX: R33.9 Retention of urine, unspecified (principal); R32 Unspecified urinary incontinence
CPT/HCPCS: 99213

== ENCOUNTER → 2024-06-30 09:37 | Outpatient (BNVA) | payer MEDICAID, SELFPAY | PROVIDERS: PCP Student in an Organized Health Care Education/Training Program; Visit Provider Nurse Practitioner Family | DX: R33.9 Retention of urine, unspecified (principal); R32 Unspecified urinary incontinence | CPT/HCPCS: 51798; 99212 ==

== ENCOUNTER 2024-08-17 18:16 | Outpatient (REF) | payer MEDICAID, SELFPAY ==
--- OUTSIDE RECORDS SUMMARY | 2024-08-17 18:18 | XMS_ITS | Encounter Summary ---
Author Organization [employer] Address [address] [place] [address] Care Team Providers Care Rock Splitter Name Role Phone Anyi Keys MD Primary Care Provider [phone] Encounter Details Date Type Department Care Team (Latest Contact Info) Description 08/17/2024 Travel Social History Tobacco Use Types Packs/Day Years Used Date Smoking Tobacco: Never Passive Smoke Exposure: Never Smokeless Tobacco: Never Alcohol Use Standard Drinks/Week Comments Never 0 (1 standard drink = 0.6 oz pur e alcohol) Depression Answer Date Recorded Patient Health Questionnaire-9 Score 0 08/17/2024 Patient Health Questionnaire-9 Score 0 08/17/2024 Last PHQ-9: Questionnaire Data Not on file 0 08/17/2024 Housing Stability Answer Date Recorded What is your housing situation today? I have raoul mahajan 02/09/[address] you li ve. Do you have problems with any of the following? None of the above 02/09/2024 Food Insecurity Answer Date Recorded Within the past 12 months, y ou worried that your food would run out before you got money to buy more: Never True 02/09/2024 Within the past 12 months,th e food you bought just didn't last and you didn't have enough money to get more: Never True Transportation Answer Date Recorded In the past 12 months, has l ack of transportation kept you from medical appts, meetings, work or from getting things needed for daily living? No 02/09/2024 Utilities Answer Date Recorded In the past 12 months, has t he electric, gas, oil or water company threatened to shut off services in your home? No 02/09/2024 Depression Answer Date Recorded Patient Health Questionnaire-2 Score 0 08/17/2024 Internet Access Answer Date Recorded Internet Access Q1 Yes 03/15/2024 Internet Access Q2 Not on file 03/15/2024 Comments No Sex and Gender Information Value Date Recorded Sex Assigned at Female 05/13/2022 10:18 AM EDT Legal Sex Female 10:18 AM EDT Gender Identity Choose not to disclose 10:18 AM EDT Sexual Orientation Choose not to disclose 2021 10:18 AM EDT documented as of this encounter Plan of Treatment Upcoming Encounters Date Type Department Care Team (Late st Contact Info) Description 10/22/2024 9:30 AM EDT Office Visit [facility] MED [facility] PEDS [address] [place], [place] [phone] Majo Spivey FNP [address] [place] [address] documented as of this encounter Visit Diagnoses Not on filedocumented in this encounter Additional Health Concerns Assessment Noted Time PHQ-9 Depression Total Score: 0 08/17/19 25 9:08 AM EST documented as of this encounter Care Teams Rock Splitter Relationship Specialty Start Date End Date Anyi Keys MD [address] [place] [address] PCP - General Family Medicine 06/29/12 documented as of this encounter
--- OUTSIDE RECORDS SUMMARY | 2024-08-17 18:18 | XMS_ITS | Encounter Summary ---
Author Organization [employer] [facility] Address [address] [place] [address] Care Team Providers Care Change Control Analyst Name Role Phone Anyi Keys MD Primary Care Provider Encounter Details Date Type Department Care Team (Late Contact Info) Description 07/01/2022 Telephone [facility] MED & PEDS [address] [place], [place] [phone] Anyi Keys MD [address] [place], [place] [phone] Social History Tobacco Use Types Packs/Day Years Used Date Smoking Tobacco: Never Assessed Comments Unknown Sex and Gender Information Value Date Recorded Sex Assigned at Female 05/13/2022 10:18 AM EDT Legal Sex Female 10:18 AM EDT Gender Identity Choose not to disclose 10:18 AM EDT Sexual Orientation Choose not to disclose 2021 10:18 AM EDT documented as of this encounter Plan of Treatment Upcoming Encounters Date Type Department Care Team (Late Contact Info) Description 10/22/2024 9:30 AM EDT Office Visit [facility] MED & PEDS [address] [place], [place] [phone] Majo Spivey FNP [address] [place], [place] [phone] documented as of this encounter Visit Diagnoses Not on filedocumented in this encounter Care Teams Change Control Analyst Relationship Specialty Start Date End Date Anyi Keys MD [address] [place] [id number] PCP - General Family Medicine 06/29/12 documented as of this encounter
--- OUTSIDE RECORDS SUMMARY | 2024-08-17 18:18 | XMS_ITS | Encounter Summary ---
Author Organization [employer] Address [address] [place] [address] Care Team Providers Care Financial Business Analyst Name Role Phone Anyi Keys MD Primary Care Provider [phone] Reason for Visit * Reason Onset Date Comments Med Refill 07/26/2024 Encounter Details Date Type Department Care Team (Late st Contact Info) Description 07/26/2024 Refill [facility] MEDICINE [address] [place] [address] Anyi Keys MD [address] [place] [address] Hypercholesteremia Social History Tobacco Use Types Packs/Day Years Used Date Smoking Tobacco: Never Passive Smoke Exposure: Never Smokeless Tobacco: Never Alcohol Use Standard Drinks/Week Comments Never 0 (1 standard drink = 0.6 oz pur e alcohol) Housing Stability Answer Date Recorded What is your housing situation today? I have raoulkorey mahajan 02/09/[address] you [...] off services in your home? No 02/09/2024 Internet Access Answer Date Recorded Internet Access [...] AM EDT documented as of this encounter Miscellaneous Notes * Telephone Encounter - Drea Cowan - 07/26/2024 8:44 AM EST TC from pt requesting medication refill. Medications needing refill : omega-3 (fish oil) 300 MG capsule To be sent to: [facility] - [place], [place] - [address] documented in this encounter Plan of Treatment Upcoming Encounters Date Type Department Care Team (Late st Contact Info) Description 10/22/2024 9:30 AM EDT Office Visit [facility] MED & PEDS [address] [place] [address] Majo Spivey FNP [address] [place] [address] documented as of this encounter Visit Diagnoses Diagnosis Hypercholesteremia Pure hypercholesterolemia documented in this encounter Care Teams Financial Business Analyst Relationship Specialty Start Date End Date Anyi Keys MD [address] [place] [address] PCP - General Family Medicine 06/29/12 documented as of this encounter
--- OUTSIDE RECORDS SUMMARY | 2024-08-17 18:18 | XMS_ITS | Encounter Summary ---
Author Organization [employer] [facility] Address [address] [place] [address] Care Team Providers Care Air Sampling And Monitoring Name Role Phone Anyi Keys MD Primary Care Provider [phone] Reason for Visit * Reason Onset Date Comments Nurse Triage 07/19/2024 Encounter Details Date Type Department Care Team ([facility] st Contact Info) Description 07/19/2024 Telephone [facility] MEDICINE [address] [place] [address] Anyi Keys MD [address] [place] [address] Nurse Triage Social History Tobacco Use Types Packs/Day Years Used Date Smoking Tobacco: Never Passive Smoke Exposure: Never Smokeless Tobacco: Never Alcohol Use Standard Drinks/Week Comments Never 0 (1 standard drink = 0.6 oz pur e alcohol) Housing Stability Answer Date Recorded What is your housing situation today? I have raoul sing 02/09/[address] you li [...] encounter Miscellaneous Notes * Telephone Encounter - Ragini Murrell RN - 07/19/2024 4:57 PM EST Triage call with [facility] Ismael intertpreter [place] [id number]. Called both available numbers unable to make contact or leave call back message. * Telephone Encounter - Reed Ruby - 07/19/2024 4:33 PM EST Symptom: Urination Pain Outcome: Schedule an urgent appointment (within 1 hour) or talk to a nurse or provider soon Reason: Severe pain now The caller accepted this outcome. documented in this encounter Plan of Treatment Upcoming Encounters Date Type Department Care Team (Late st Contact Info) Description 10/22/2024 9:30 AM EDT Office Visit [facility] MED & PEDS [address] [place] [address] Majo Spivey FNP [address] [place] [address] documented as of this encounter Visit Diagnoses Not on filedocumented in this encounter Care Teams Air Sampling And Monitoring Relationship Specialty Start Date End Date Anyi Keys MD [address] [place] [address] PCP - General Family Medicine 06/29/12 documented as of this encounter
--- OUTSIDE RECORDS SUMMARY | 2024-08-17 18:18 | XMS_ITS | Encounter Summary ---
Author Organization [employer] Address [address] [place] [address] Care Team Providers Care Sales Attendant Building Materials Name Role Phone Anyi Keys MD Primary Care Provider [phone] Reason for Visit * Reason Comments Med Refill Encounter Details Date Type Department Care Team ([facility] Contact Info) Description 07/24/2024 Refill [facility] MEDICINE [address] [place] [address] Anyi Keys MD [address] [place], [place] [phone] Hypercholesteremia Social History Tobacco Use Types Packs/Day [...] Description 10/22/2024 9:30 AM EDT Office Visit [facility] CH[facility] MED & PEDS [address] [place], [place] [phone] Majo Spivey FNP [address] [place], [place] [phone] documented as of this encounter Visit Diagnoses Diagnosis Hypercholesteremia Pure hypercholesterolemia documented in this encounter Care Teams Sales Attendant Building Materials Relationship Specialty Start Date End Date Anyi Keys MD [address] [place] [id number] PCP - General Family Medicine 06/29/12 documented as of this encounter
--- OUTSIDE RECORDS SUMMARY | 2024-08-17 18:18 | XMS_ITS | Encounter Summary ---
Author Organization [employer] Address [address] [place] [address] Care Team Providers Care Quill Fixer Name Role Phone Anyi Keys MD Primary Care Provider [phone] Encounter Details Date Type Department Care Team ([facility] st Contact Info) Description 08/17/2024 9:00 AM EST Office Visit [facility] MEDICINE [address] [place], [place] [phone] Swathi Lombardi CNM [address] [place] [address] Vaginal itching (Primary Dx) Social History Tobacco Use Types Packs/Day Years [...] AM EDT documented as of this encounter Last Filed Vital Signs Vital Sign Reading Time Taken Comments Blood Pressure 124/72 08/17/2024 9:07 AM EST Pulse 88 08/17/2024 9:07 AM EST Temperature 37 ??C (98.6 ??F) 08/17/2024 9:07 AM EST Respiratory Rate 17 08/17/2024 9:07 AM EST Oxygen Saturation - - Inhaled Oxygen Concentration - - Weight 66.2 kg (146 lb) 08/17/2024 9:07 AM EST Height 146 cm (4' 9.48 ) 08/17/2024 9:07 AM EST Body Mass Index 31.07 08/17/2024 9:07 AM EST documented in this encounter Progress Notes * Swathi Lombardi CNM - 08/17/2024 9:00 AM EST Subjective Patient ID: Rebecca Wang is a 58 y.o. 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 ASCUS/HPV neg 01/2024 with me. Cotesting due 01/2027. Referred to breast surgeon for palpable mass not seen on imaging. Seen at [facility] breast [place] 02/2024, normal breast exam at that time. Referred to EXCAVATOR BACKHOE OPERATOR for 5.3cm right ovarian cyst, Ca-125 of 9. No notes in chart. Raquel reports she has upcoming appt for laparoscopy with [facility]. Notes vaginal itching recently, no other vaginal/urinary symptoms. Not sexually active. Review of Systems Constitutional: Negative for chills and fever. Genitourinary: Negative for dysuria, frequency, hematuria, pelvic pain, vaginal bleeding, vaginal discharge and vaginal pain. Skin: Negative for rash. Objective BP 124/72 (BP Location: Left arm, Patient Position: Sitting, BP Cuff Size: Adult) Pulse 88 Temp98.6 ??F (37 ??C) (Oral) Resp 17 Ht 4' 9.48 (1.46 m) Wt 146 lb (66.2 kg) BMI 31.07 kg/m?? Physical Exam Constitutional: Appearance: Normal appearance. Abdominal: Tenderness: There is no right CVA tenderness or left CVA tenderness. Genitourinary: General: Normal vulva. Labia: Right: No rash, tenderness, lesion or injury. Left: No rash, tenderness, lesion or injury. Vagina: Normal. No signs of injury and foreign body. No vaginal discharge, erythema, tenderness, bleeding or lesions. Cervix: No cervical motion tenderness, discharge, friability, lesion, erythema, cervical bleeding or eversion. Uterus: Normal. Not enlarged and not tender. Adnexa: Right adnexa normal and left adnexa normal. Right: No mass, tenderness or fullness. Left: No mass, tenderness or fullness. Comments: Ovaries non palpable bilaterally. Neurological: Mental Status: Rebecca is alert. Psychiatric: Mood and Affect: Mood normal. Behavior: Behavior normal. Assessment/Plan Diagnoses and all orders for this visit: Vaginal itching - POCT fern test, vaginal fluid manually resulted - Bacterial Vaginosis Panel No obvious vaginitis. Will send bacterial vaginosis swab and treat positive results. Notes itching correlates with using new soap. Advised to avoid scented products near vagina, wash area with water only. Okay to call Demi with results. Will get [facility] records for followup on ovarian cyst. Pap/HPV 01/2027 Mammogram 01/2025. documented in this encounter Plan of Treatment Upcoming Encounters Date Type Department Care Team (Late st Contact Info) Description 10/22/2024 9:30 AM EDT Office Visit [facility] MED & PEDS [address] [place] [address] AnetaMajo gonzales, ANN [address] [place] [address] Scheduled Orders Name Type Priority Associated Diagnoses Orde r Schedule Bacterial Vaginosis Panel Microbiology Routine Vaginal itching Ordered: 08/17/2024 documented as of this encounter Procedures Procedure Name Priority Date/Time Associated Diagnosis Comments POCT WET MOUNT/[place] Routine 08/17/2024 10 :00 AM EST Vaginal itching documented in this encounter Results * POCT fern test, vaginal fluid manually resulted (08/17/2024 10:00 AM EST) VALENCIA Prep Negative Comment:pH 6, neg whiff, neg clue, neg trich, neg yeast, neg wbc Vaginal Fluid 08/17/2024 10: 00 AM EST Swathi Lombardi CNM POINT OF CARE TEST ENTER/ EDIT ORDERABLES Final Result documented in this encounter Visit Diagnoses Diagnosis Vaginal itching- Primary Pruritus of genital organs documented in this encounter Additional Health Concerns Assessment Noted Time PHQ-9 Depression Total Score: 0 08/17/19 25 9:08 AM EST documented as of this encounter Care Teams Quill Fixer Relationship Specialty Start Date End Date Anyi Keys MD [address] [place] [phone] PCP - General Family Medicine 06/29/12 documented as of this encounter
--- OUTSIDE RECORDS SUMMARY | 2024-08-17 18:18 | XMS_ITS | Encounter Summary ---
Author Organization [employer] [facility] Address [address] [place] [address] 7t [place] [address] Care Team Providers Care Bottling Equipment Sales Representative Name Role Phone Anyi Keys MD Primary Care Provider [phone] Encounter Details Date Type Department Care Team (Late Contact Info) Description 02/13/2023 Orders Only [facility] MED & PEDS [address] [place], [place] [phone] Donavan Dalton MD [address] [place], [place] [phone] Encounter for hearing examination, unspecified whether abnormal findings (Primary Dx) Social History Tobacco Use Types Packs/Day Years Used Date Smoking Tobacco: Never Passive Smoke Exposure: Never Smokeless Tobacco: Never Alcohol Use Standard Drinks/Week Comments Never 0 (1 standard drink = 0.6 oz pur e alcohol) Comments Unknown Sex and Gender Information Value [...] Description 10/22/2024 9:30 AM EDT Office Visit [facility] MED & PEDS [address] [place], [place] [phone] Ysabel Spivey FNP [address] [place], [place] [phone] documented as of this encounter Procedures Procedure Name Priority Date/Time Associated Diagnosis Comments BI US BREAST LIMITED LEFT Routine 03/06/2023 2:53 PM EDT BI MAMMOGRAM DIAGNOSTIC TOMOSYNTHESIS BILATERAL Routine 03/06/2023 2:25 PM EDT documented in this encounter Results * BI US Breast Limited Left (03/06/2023 2:53 PM EDT) Anatomical Region Laterality Modality Breast Left Ultrasound 03/06/2023 2:53 PM EDT Narrative 03/06/2023 5:02 PM EDT ? [facility] [place] ? [address] ?[place] [address] ? Ultrasound Report ? Signed ? Patient: Rebecca Wang ?MR#: [id number] ?? 5 ? : 1965 ?Acct:[id number] ? Age/Sex: 57 / F ?ADM Date: 03/06/23 ? Loc: HO.MAMMO ? Attending Dr: Ysabel Rollins NP ? Ordering Physician: YSABEL ROLLINS NP ?? Date of Service: 03/06/23 ?? Procedure(s): US breast LT limited mamm only ?? Accession Number(s): [id number] ? cc: YSABEL ROLLINS EGG SMELLER ? EXAMINATION: ?? MM DIAGNOSTIC DIGITAL BREAST TOMOSYNTHESIS, BILATERAL ?? US BREAST LIMITED, LEFT ? MAMMOGRAPHY: ?? CLINICAL INFORMATION: ? Palpable focus of concern patient's physician felt medial left breast, ?? 4 cm from the nipple, approximately 10:00 location. Patient states she ?? cannot feel the abnormality for localization purposes today. Patient ?? also due for routine bilateral screening. ? COMPARISON: ?? Mammography: 05/28/2022, 05/22/2021, 05/17/2020, 04/09/2018. ? TECHNIQUE: ?? Digital breast tomosynthesis is performed in both the craniocaudal and ?? mediolateral oblique views along with computer-aided detection (CAD). ?? Synthesized 2D images are generated from the tomosynthesis. In addition ?? a 3-D full-field left mediolateral view was performed. ? FINDINGS: ?? There are scattered areas of fibroglandular density (ACR BI-RADS breast ?? composition Category b). ? There are no suspicious masses, suspicious grouped calcifications, or ?? areas of architectural distortion. The parenchymal pattern is stable ?? from prior exams. ? There is no mammographic mass or area of architectural distortion in ?? the medial left breast. No mammographic correlate to the palpable focus ?? of concern is present. ? ULTRASOUND: ?? CLINICAL INFORMATION: ?? Palpable focus of concern patient's physician felt medial left breast, ?? 4 cm from the nipple, approximately 10:00 location. Patient states she ?? cannot feel the abnormality for localization purposes today. ? COMPARISON: ?? None relevant. ? TECHNIQUE: ?? Targeted sonographic evaluation was performed of the medial left breast ?? spanning the 7-11 o'clock axes using a high frequency linear ?? transducer. ??Selected archived documentation. ? FINDINGS: ? LEFT BREAST: There is a mixture of fatty and fibroglandular tissue. ??No ?? suspicious mass is seen. ??There is no pathologic acoustic shadowing. ?? There is no cystic abnormality. ? No sonographic correlate to the palpable focus of concern is present. ? US/US breast LT limited mamm only ?? IMPRESSION: ?? There are no findings suspicious for malignancy. ? There is no imaging correlate to the purported palpable focus of ?? concern in the medial left breast, 4 cm from the nipple. Recommend ?? clinical management. ? Decision to biopsy a palpable abnormality without imaging correlate ?? must be based on clinical grounds. ? OVERALL ASSESSMENT: ?? Mammography: BI-RADS 1 - Negative ?? Ultrasound: BI-RADS 1 - Negative ? RECOMMENDATION: ?? 1 year F/U ? Results were provided to the patient at time of visit by the ?? technologist. ? This patient's information was entered into a reminder system with a ?? target due date for their next mammogram. ? Dictated By: ?Davi Serrano MD ? Signed By: ?<Electronically signed by Davi Serrano MD in OV> ?// 1659 ? DD/DT: 03/06/ 1453 ? TD/TT: ? University Services Program Associate: ? Procedure Note Donotuseinterpreter, Image - 03/06/2023 [facility] [address] [place] [address] Dr. [place], [place] [address] Ultrasound Report Signed Patient: Maddie Wang#: [id number] 5 : 1965Acct:[id number] Age/Sex: 57 / FADM Date: 03/06/23 Loc: HO.MAMMO Attending Dr: Ysabel Rollins NP Ordering Physician: YSABEL ROLLINS NP Date of Service: 03/06/23 Procedure(s): US breast LT limited mamm only Accession Number(s): [id number] cc: YSABEL ROLLINS NP EXAMINATION: MM DIAGNOSTIC DIGITAL BREAST TOMOSYNTHESIS, BILATERAL US BREAST LIMITED, LEFT MAMMOGRAPHY: CLINICAL INFORMATION: Palpable focus of concern patient's physician felt medial left breast, 4 cm from the nipple, approximately 10:00 location. Patient states she cannot feel the abnormality for localization purposes today. Patient also due for routine bilateral screening. COMPARISON: Mammography: 05/28/2022, 05/22/2021, 05/17/2020, 04/09/2018. TECHNIQUE: Digital breast tomosynthesis is performed in both the craniocaudal and mediolateral oblique views along with computer-aided detection (CAD). Synthesized 2D images are generated from the tomosynthesis. In addition a 3-D full-field left mediolateral view was performed. FINDINGS: There are scattered areas of fibroglandular density (ACR BI-RADS breast composition Category b). There are no suspicious masses, suspicious grouped calcifications, or areas of architectural distortion. The parenchymal pattern is stable from prior exams. There is no mammographic mass or area of architectural distortion in the medial left breast. No mammographic correlate to the palpable focus of concern is present. ULTRASOUND: CLINICAL INFORMATION: Palpable focus of concern patient's physician felt medial left breast, 4 cm from the nipple, approximately 10:00 location. Patient states she cannot feel the abnormality for localization purposes today. COMPARISON: None relevant. TECHNIQUE: Targeted sonographic evaluation was performed of the medial left breast spanning the 7-11 o'clock axes using a high frequency linear transducer. Selected archived documentation. FINDINGS: LEFT BREAST: There is a mixture of fatty and fibroglandular tissue. No suspicious mass is seen. There is no pathologic acoustic shadowing. There is no cystic abnormality. No sonographic correlate to the palpable focus of concern is present. US/US breast LT limited mamm only IMPRESSION: There are no findings suspicious for malignancy. There is no imaging correlate to the purported palpable focus of concern in the medial left breast, 4 cm from the nipple. Recommend clinical management. Decision to biopsy a palpable abnormality without imaging correlate must be based on clinical grounds. OVERALL ASSESSMENT: Mammography: BI-RADS 1 - Negative Ultrasound: BI-RADS 1 - Negative RECOMMENDATION: 1 year F/U Results were provided to the patient at time of visit by the technologist. This patient's information was entered into a reminder system with a target due date for their next mammogram. Dictated By: Davi Serrano MD Signed By: <Electronically signed by Davi Serrano MD in OV> 03/06/23 1659 DD/ 1453 TD/TT: University Services Program Associate: us Ysabel Rollins APPAREL RENTAL CLERK IMG US PROCEDURES Final Result * BI Mammogram Diagnostic Tomosynthesis Bilateral (03/06/2023 2:25 PM EDT) Anatomical Region Laterality Modality Breast Bilateral Mammography 03/06/2023 2:25 PM EDT Narrative 03/06/2023 5:02 PM EDT ? [facility] ? [address] [address] ? Mammography Report ? Signed ? Patient: Awng,Rebecca ?MR#: [id number] ?? 5 ? : 1965 ?Acct:[id number] ? Age/Sex: 57 / F ?ADM Date: /24/23 ? Loc: HO.MAMMO ? Attending Dr: Ysabel Rollins EGG SMELLER ? Ordering Physician: YSABEL ROLLINS EGG SMELLER ?Results: 1Negati ?? ve ? Date of Service: 03/06/23 ?Follow Up: 1 Year From Orig ?? inal Mammogram ? Procedure(s): MM tomosynthesis diagnostic BI ?? Accession Number(s): [id number] ? cc: YSABEL ROLLINS EGG SMELLER ? EXAMINATION: ?? MM DIAGNOSTIC DIGITAL BREAST TOMOSYNTHESIS, BILATERAL ?? US BREAST LIMITED, LEFT ? MAMMOGRAPHY: ?? CLINICAL INFORMATION: ? Palpable focus of concern patient's physician felt medial left breast, ?? 4 cm from the nipple, approximately 10:00 location. Patient states she ?? cannot feel the abnormality for localization purposes today. Patient ?? also due for routine bilateral screening. ? COMPARISON: ?? Mammography: 05/28/2022, 05/22/2021, 05/17/2020, 04/09/2018. ? TECHNIQUE: ?? Digital breast tomosynthesis is performed in both the craniocaudal and ?? mediolateral oblique views along with computer-aided detection (CAD). ?? Synthesized 2D images are generated from the tomosynthesis. In addition ?? a 3-D full-field left mediolateral view was performed. ? FINDINGS: ?? There are scattered areas of fibroglandular density (ACR BI-RADS breast ?? composition Category b). ? There are no suspicious masses, suspicious grouped calcifications, or ?? areas of architectural distortion. The parenchymal pattern is stable ?? from prior exams. ? There is no mammographic mass or area of architectural distortion in ?? the medial left breast. No mammographic correlate to the palpable focus ?? of concern is present. ? ULTRASOUND: ?? CLINICAL INFORMATION: ?? Palpable focus of concern patient's physician felt medial left breast, ?? 4 cm from the nipple, approximately 10:00 location. Patient states she ?? cannot feel the abnormality for localization purposes today. ? COMPARISON: ?? None relevant. ? TECHNIQUE: ?? Targeted sonographic evaluation was performed of the medial left breast ?? spanning the 7-11 o'clock axes using a high frequency linear ?? transducer. ??Selected archived documentation. ? FINDINGS: ? LEFT BREAST: There is a mixture of fatty and fibroglandular tissue. ??No ?? suspicious mass is seen. ??There is no pathologic acoustic shadowing. ?? There is no cystic abnormality. ? No sonographic correlate to the palpable focus of concern is present. ? MM/MM tomosynthesis diagnostic BI ?? IMPRESSION: ?? There are no findings suspicious for malignancy. ? There is no imaging correlate to the purported palpable focus of ?? concern in the medial left breast, 4 cm from the nipple. Recommend ?? clinical management. ? Decision to biopsy a palpable abnormality without imaging correlate ?? must be based on clinical grounds. ? OVERALL ASSESSMENT: ?? Mammography: BI-RADS 1 - Negative ?? Ultrasound: BI-RADS 1 - Negative ? RECOMMENDATION: ?? 1 year F/U ? Results were provided to the patient at time of visit by the ?? technologist. ? This patient's information was entered into a reminder system with a ?? target due date for their next mammogram. ? Dictated By: ?Davi Serrano MD ? Signed By: ?<Electronically signed by Davi Serrano MD in OV> ?03/06/23 1659 ? DD/ 1425 ? TD/TT: ? University Services Program Associate: ? Procedure Note [place], Dash - 03/06/2023 [facility] [address] [place] [address] Dr. [place], [place] [address] Mammography Report Signed Patient: Maddie Wang#: [id number] 5 : 1965Acct:[id number] Age/Sex: 57 / FADM Date: 03/06/23 Loc: HO.MAMMO Attending Dr: Ysabel Rollins NP Ordering Physician: YSABEL ROLLINS NPResults: 1Negati ve Date of Service: 03/06/23Follow Up: 1 Year From [facility] Mammogram Procedure(s): MM tomosynthesis diagnostic BI Accession Number(s): [id number] cc: YSABEL ROLLINS NP EXAMINATION: MM DIAGNOSTIC DIGITAL BREAST TOMOSYNTHESIS, BILATERAL US BREAST LIMITED, LEFT MAMMOGRAPHY: CLINICAL INFORMATION: Palpable focus of concern patient's physician felt medial left breast, 4 cm from the nipple, approximately 10:00 location. Patient states she cannot feel the abnormality for localization purposes today. Patient also due for routine bilateral screening. COMPARISON: Mammography: 05/28/2022, 05/22/2021, 05/17/2020, 04/09/2018. TECHNIQUE: Digital breast tomosynthesis is performed in both the craniocaudal and mediolateral oblique views along with computer-aided detection (CAD). Synthesized 2D images are generated from the tomosynthesis. In addition a 3-D full-field left mediolateral view was performed. FINDINGS: There are scattered areas of fibroglandular density (ACR BI-RADS breast composition Category b). There are no suspicious masses, suspicious grouped calcifications, or areas of architectural distortion. The parenchymal pattern is stable from prior exams. There is no mammographic mass or area of architectural distortion in the medial left breast. No mammographic correlate to the palpable focus of concern is present. ULTRASOUND: CLINICAL INFORMATION: Palpable focus of concern patient's physician felt medial left breast, 4 cm from the nipple, approximately 10:00 location. Patient states she cannot feel the abnormality for localization purposes today. COMPARISON: None relevant. TECHNIQUE: Targeted sonographic evaluation was performed of the medial left breast spanning the 7-11 o'clock axes using a high frequency linear transducer. Selected archived documentation. FINDINGS: LEFT BREAST: There is a mixture of fatty and fibroglandular tissue. No suspicious mass is seen. There is no pathologic acoustic shadowing. There is no cystic abnormality. No sonographic correlate to the palpable focus of concern is present. MM/MM tomosynthesis diagnostic BI IMPRESSION: There are no findings suspicious for malignancy. There is no imaging correlate to the purported palpable focus of concern in the medial left breast, 4 cm from the nipple. Recommend clinical management. Decision to biopsy a palpable abnormality without imaging correlate must be based on clinical grounds. OVERALL ASSESSMENT: Mammography: BI-RADS 1 - Negative Ultrasound: BI-RADS 1 - Negative RECOMMENDATION: 1 year F/U Results were provided to the patient at time of visit by the technologist. This patient's information was entered into a reminder system with a target due date for their next mammogram. Dictated By: Davi Serrano MD Signed By: <Electronically signed by Davi Serrano MD in OV> 03/06/23 3553 DD/ 1425 TD/TT: University Services Program Associate: us Ysabel Rollins APPAREL RENTAL CLERK IMG BI PROCEDURES Final Result documented in this encounter Visit Diagnoses Diagnosis Encounter for hearing examination, unspecified whether abnormal findings- Primary documented in this encounter Care Teams Bottling Equipment Sales Representative Relationship Specialty Start Date End Date Anyi Keys MD [address] [place] [address] PCP - General Family Medicine 06/29/12 documented as of this encounter
--- OUTSIDE RECORDS SUMMARY | 2024-08-17 18:18 | XMS_ITS | Clinical Summary ---
Author Organization [employer] Address [address] [place] [address] Care Team Providers Care Sample Cutter Name Role Phone Anyi Keys MD Primary Care Provider [phone] Allergies No known active allergies Medications albuterol 108 (90 Base) MCG/ACT inhaler Inhale 2 puffs every 4 (four) hours if needed. 01/18/20 14 Active benztropine (Cogentin) 0.5 MG tablet Take 0.5 mg by mouth 2 times daily. 04/18/20 22 Active citalopram (CeleXA) 40 MG tablet Take 40 mg by mouth in the morning. 04/18/20 22 Active divalproex (Depakote) 500 MG EC tablet TAKE 2 TABLET BY MOUTH AT BEDTIME 01/05/20 22 Active fluPHENAZine (Prolixin) 2.5 MG tablet Take 2.5 mg by mouth 2 times daily. 08/01/19 23 Active haloperidol (Haldol) 1 MG tablet Take 1 mg by mouth 2 times daily. 10/18/19 22 Active imipramine (Tofranil) 10 MG tablet Take 20 mg by mouth at bedtime. 07/18/19 23 Active OLANZapine (ZyPREXA) 10 MG tablet TAKE 1 TABLET BY MOUTH AT BEDTIME DIRECTED 08/01/19 23 Active HM Lubricating Tears 0.4-0.3 % solution Administer 1 drop into both eyes 2 times daily. 07/09/20 22 Active traZODone (Desyrel) 100 MG tablet TAKE 2 TABLET BY MOUTH AT BEDTIME 04/18/20 22 Active LORazepam (Ativan) 0.5 MG tablet 06/25/20 23 Active Artificial Tears 0.2-0.2-1 % solution 02/08/20 23 Active bethanechol (Urecholine) 50 MG tablet 06/23/20 23 Active omeprazole (PriLOSEC) [address] capsule TAKE 1 CAPSULE BY ORAL ROUTE EVERY MORNING BEFORE A MEAL 90 capsule 3 11/06/19 24 Active cetirizine (ZyrTEC) 10 MG tabletIndicati ons:Sore throat Take 1 tablet (10 mg) by mouth Once per day. 30 tablet 10 11/06/19 24 Active Calcium Carb-Cholecalc iferol 500-10 MG-MCG chewable tabletIndicati ons:Developmen darren delay Chew 1 tablet at bedtime. 30 tablet 11/06/19 24 Active diclofenac (Cataflam) 50 MG tablet Take 1 tablet (50 mg) by mouth 3 times daily. 60 tablet 11/06/19 24 Active Acetaminophen Extra Strength 500 MG tabletIndicati ons:Arthropath y Take 500 mg by mouth every 6 (six) hours if needed (pain). 90 tablet 3 11/06/19 24 Active metFORMIN (Glucophage) 500 MG tablet Take 1 tablet (500 mg) by mouth with breakfast. 30 tablet 11 02/18/20 24 025 Active fluticasone (Flonase) 50 MCG/ACT nasal spray Administer 2 sprays into each nostril 2 times daily. Shake gently. Before first use, prime pump. After use, clean tip and replace cap. 48 g 04/23/20 24 Active atorvastatin (Lipitor) 40 MG tablet TAKE 1 TABLET (40 MG) BY MOUTH AT BEDTIME. 90 tablet 1 05/25/20 24 Active omega-3 (fish oil) 300 MG capsuleIndicat ions:Hyperchol esteremia TAKE 1 CAPSULE BY MOUTH EVERY 12 HOURS 60 capsule 5 07/26/19 25 Active docusate sodium (Colace) 100 MG capsule TAKE 1 CAPSULE BY ORAL ROUTE 2 TIMES EVERY DAY 180 capsule 1 08/03/19 25 Active omega-3 (fish oil) 300 MG capsuleIndicat ions:Hyperchol esteremia Take 1 capsule (300 mg) by mouth every 12 (twelve) hours. 60 capsule 5 01/26/20 24 025 Discontinued(Re order (will not trigger notification to Pharmacy)) docusate sodium (Colace) 100 MG capsule TAKE 1 CAPSULE BY ORAL ROUTE 2 TIMES EVERY DAY 180 capsule 04/23/20 24 025 Discontinued omega-3 (fish oil) 300 MG capsuleIndicat ions:Hyperchol esteremia TAKE 1 CAPSULE BY MOUTH EVERY 12 HOURS 60 capsule 5 07/23/19 25 025 Discontinued(Re order (will not trigger notification to Pharmacy)) Active Problems Problem Noted Date Diagnosed Date Primary hypertension 02/17/2024 Acute right ankle pain 08/27/2023 Assessment & Plan (08/27/2023 3:00 PM EST): Patient with R ankle pain, ddx ankle sprain. Diffuse tenderness and swelling present, 2 well heal scars in ankle, patient unable to recall when she had surgery. Able to bear weight. Will proceed with ankle X ray and will send anti-inflammatory, will need to f/up with x ray results. 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 Encounters Date Type Department Care Team Description 08/17/2024 9:00 AM EST Office Visit [facility] [address] [place] [address] Shabbir Ahuja CNM Vaginal itching (Primary Dx) 08/17/2024 Travel 07/30/2024 Refill [facility] [address] [place] [address] Anyi Keys MD 07/26/2024 Refill [facility] [address] [place] [address] Anyi Keys MD Hypercholesteremia 07/24/2024 Refill [facility] [address] [place] [address] Anyi Keys MD Hypercholesteremia 07/22/2024 Refill [facility] [address] [place], [place] [phone] Anyi Keys MD Hypercholesteremia 07/19/2024 Telephone [facility] [address] [place], [place] [address] Anyi Keys MD Nurse Triage 05/24/2024 Refill [facility] [address] [place] [address] Anyi Keys MD from Last 3 Months Immunizations Name Administration Dates Next Due Influenza Injectable Quadriv alant Preservative Free IIV4 MDCK 03/28/2022,04/04/2020 Influenza injectable quadriv alent IIV4 with preservative 05/12/2019,04/08/2017,04/19/2015 Influenza injectable quadriv alent preservative free 04/13/2021,07/17/2018 Influenza, IIV3, injectable 04/11/2023, 0,04/25/2014 Influenza, Split (incl. maryellen fied surface antigen) 04/17/2012 Moderna Covid-19 Vaccine 12+ 05/15/2023,09/07/19 21,08/10/2020 Tdap 08/25/2017 Zoster, Recombinant 08/08/2020 Social History Tobacco Use Types Packs/Day Years Used Date Smoking Tobacco: Never Passive Smoke Exposure: Never Smokeless Tobacco: Never Tobacco Cessation:Counseling Given: Not Answered Alcohol Use Standard Drinks/Week Comments Never 0 [...] not to disclose 2021 10:18 AM EDT Last Filed Vital Signs Vital Sign Reading Time Taken Comments Blood Pressure 124/72 08/17/2024 9:07 AM EST Pulse 88 08/17/2024 9:07 AM EST Temperature 37 ??C (98.6 ??F) 08/17/2024 9:07 AM EST Respiratory Rate 17 08/17/2024 9:07 AM EST Oxygen Saturation 93% 02/17/2024 10:38 AM EDT Inhaled Oxygen Concentration - - Weight 66.2 kg (146 lb) 08/17/2024 9:07 AM EST Height 146 cm (4' 9.48 ) 08/17/2024 9:07 AM EST Body Mass Index 31.07 08/17/2024 9:07 AM EST Plan of Treatment Upcoming Encounters Date Type Department Care Team (Late st Contact Info) Description 10/22/2024 9:30 AM EDT Office Visit [facility] P[facility]S [address] [place] [address] Majo Spivey FNP [address] [place] [address] Health Maintenance Due Date Last Done Comments CT Colonography 1965 FIT DNA/Cologuard 1965 FIT 1965 FOBT 1965 HIV Screening 1965 Sigmoidoscopy 1965 Alcohol/Substance Use Screening 1977 Hepatitis B Vaccines (1 of 3 - 19+ 3-dose series) 1984 Pneumococcal Vaccine: 50+ Years (1 of 1 - PCV) 10/24/2015 Zoster Vaccines (2 of 2) 10/03/2020 08/08/2020 Colonoscopy 07/11/2022 07/11/2017 Colorectal Cancer Screening 07/11/2022 COVID-19 Vaccine ( season) 2024 05/15/2023, 11/09/2021, 09/07/2020, Additional history exists SDOH Screening 02/08/2025 02/09/2024 Diabetes: Hemoglobin A1C 02/16/2025 024, 10/25/2022, 04/18/2021 Depression Screening 08/17/2025 08/17/2024, 08/17/19 25 Tobacco Screening 08/17/2025 08/17/2024 Mammogram 02/08/2026 02/09/2024, 01/12, 03/06/2023, Additional history exists Cervical Cancer Screening 01/25/2027 HPV/Cotest 01/25/2027 01/26/2024, 08/17/2019 Pap Smear 01/25/2027 01/26/2024 DTaP/Tdap/Td Vaccines (2 - Td or Tdap) 08/25/2027 08/25/2017 Lipid Panel 01/12/2029 01/13/2024, 10/13, 04/18/2021 RSV Patients and Patients Aged 60 years or older (1 - 1-dose 75+ series) 2040 Hepatitis C Screening Completed 01/13/2024 Influenza Vaccine Completed 05/18/2024, , 03/28/2022, Additional history exists HIB Vaccines Aged Out No longer eligi ble based on patient's age to complete this topic HPV Vaccines Aged Out No longer eligi ble based on patient's age to complete this topic Hepatitis A Vaccines Aged Out No long er eligible based on patient's age to complete this topic IPV Vaccines Aged Out No longer eligi ble based on patient's age to complete this topic Meningococcal Vaccine Aged Out No los jorge eligible based on patient's age to complete this topic RSV under 20 months Aged Out No longe r eligible based on patient's age to complete this topic Rotavirus Vaccines Aged Out No longer eligible based on patient's age to complete this topic Procedures Procedure Name Priority Date/Time Associated Diagnosis Comments POCT WET MOUNT/VALENCIA Routine 08/17/2024 10 :00 AM EST Vaginal itching HEMOGLOBIN A1C Routine 02/17/2024 11:36 AM EDT Hypercholesterolemia BI US BREAST LIMITED LEFT Urgent 02/09/2024 10:08 AM EDT THINPREP IMAGING PAP AND HPV MRNA E6/E7 Routine 01/26/2024 11:19 AM EDT HEPATITIS C AB W/REFL TO HCV RNA, QN, PCR Routine 01/13/2024 8:45 AM EDT Annual physical exam LIPID PANEL, STANDARD Routine 01/13/2024 8:45 AM EDT Hypertension, unspecified type HM COLONOSCOPY Routine 07/11/2017 from Last 3 Months or Most Recently Relevant to Health Maintenance Results * POCT fern test, vaginal fluid manually resulted (08/17/2024 10:00 AM EST) VALENCIA Prep Negative Comment:pH 6, neg whiff, neg clue, neg trich, neg yeast, neg wbc Vaginal Fluid 08/17/2024 10: 00 AM EST Shabbir Ahuja CNM POINT OF CARE TEST ENTER/ EDIT ORDERABLES Final Result * (ABNORMAL) Hemoglobin A1c (02/17/2024 11:36 AM EDT) Hemoglobin A1c 6.3(H) <6.0 % [facility] Comment:Hemoglobin A1C Refer ence Range Adults: 4.8 - 6.0 % Non diabetic: < 6.0 % Goal: < 7.0 %Additional Action Suggested: > 8.0 %Note: Hemoglobin A1c results are invalid for patients with abnormal amounts of HbF. Blood transfusions may impact the HbA1c concentration in the patient sample. Estimated Average Glucose 134 mg/dL [facility] Comment:eAG = Estimated ave rage glucose which is %A1C expressed asaverage glucose, using the formula of the T1F-KzklhwsUxcculh Glucose study (ADAG), Diabetes Care, Vol.31,#8,Feb. 2007 Blood Venous blood specimen / Unknown 02/17/2024 11:36 AM EDT 02/17/2024 2:02 PM EDT us Anyi Keys MD LAB BLOOD ORDERABLES Final Resul t [facility] [address] [place] [address] [phone] * BI US Breast Limited Left (02/09/2024 10:08 AM EDT) Anatomical Region Laterality Modality Breast Left Ultrasound 02/09/2024 10:0 8 AM EDT Narrative 02/09/2024 12:47 PM EDT ? [facility] ? [address] ?[place] [address] ? Ultrasound Report ? Signed ? Patient: Rebecca Crespo ?MR#: M ?? [id number] ? : 1965 ?Acct:[id number] ? Age/Sex: 58 / F ?ADM Date: 02/09/24 ? Loc: HO.MAMMO ? Attending Dr: Shabbir Ahuja CNM ? Ordering Physician: SHABBIR AHUJA CNNancy ?? Date of Service: 02/09/24 ?? Procedure(s): US breast LT limited mamm only ?? Accession Number(s): [id number] ? cc: Anyi Keys MD; SHABBIR AHUJA CNM ? EXAMINATION: ?? MM DIAGNOSTIC DIGITAL BREAST TOMOSYNTHESIS, BILATERAL ?? US BREAST LIMITED, LEFT ? MAMMOGRAPHY: ?? CLINICAL INFORMATION: ? Left breast lump palpated by referring clinician. According to the ?? referring clinician the 8-9 o'clock position. ? COMPARISON: ?? Mammography: This study is compared with prior mammography dating back ?? to 2020. ? TECHNIQUE: ?? Digital breast tomosynthesis is performed in both the craniocaudal and ?? mediolateral oblique views along with computer-aided detection (CAD). ?? Synthesized 2D images are generated from the tomosynthesis. ? FINDINGS: ?? There are scattered areas of fibroglandular density (ACR BI-RADS breast ?? composition Category b). ? There are no significant masses, abnormal calcifications, or other ?? abnormalities. ? ULTRASOUND: ?? CLINICAL INFORMATION: ?? Physician palpated lump 8 9:00 region left breast ? COMPARISON: ?? None ? TECHNIQUE: ?? Targeted sonographic evaluation of the 7-12 o'clock region of the left ?? breast was performed using a high frequency linear transducer. ?? Selected archived documentation. ? FINDINGS: ? LEFT BREAST: There are no abnormalities in the 7-12 o'clock region of ?? the left breast. ? US/US breast LT limited mamm only ?? IMPRESSION: ?? No mammographic signs of malignancy. No sonographic abnormalities in ?? the left breast in the 7-12 o'clock region. Clinical follow-up advised. ? OVERALL ASSESSMENT: ?? Mammography: BI-RADS 1 - Negative ?? Ultrasound: BI-RADS 1 - Negative ? RECOMMENDATION: ?? 1. Patient should be managed based on the clinical impression. ?2. ?? Otherwise, routine annual screening mammography. ? Results were provided to the patient at time of visit by the ?? technologist. ? This patient's information was entered into a reminder system with a ?? target due date for their next mammogram. ? Dictated By: ?Maria Guadalupe Moise MD ? Signed By: ?<Electronically signed by Maria Guadalupe Moise MD in OV> ? 02/09/24 1243 ? DD/ 1008 ? TD/TT: ? Home Help Aide: ? Procedure Note [place], Dash - 02/09/2024 [facility] [address] [place] [address] Dr. [place], [place] [address] Ultrasound Report Signed Patient: Rebecca Crespo#: M [id number] : 1965Acct:[id number] Age/Sex: 58 / FADM Date: 02/09/24 Loc: TAL Attending Dr: Shabbir Ahuja CNM Ordering Physician: SHABBIR AHUJA CNM Date of Service: 02/09/24 Procedure(s): US breast LT limited mamm only Accession Number(s): [id number] cc: Anyi Keys MD; SHABBIR AHUJA CNM EXAMINATION: MM DIAGNOSTIC DIGITAL BREAST TOMOSYNTHESIS, BILATERAL US BREAST LIMITED, LEFT MAMMOGRAPHY: CLINICAL INFORMATION: Left breast lump palpated by referring clinician. According to the referring clinician the 8-9 o'clock position. COMPARISON: Mammography: This study is compared with prior mammography dating back to 2020. TECHNIQUE: Digital breast tomosynthesis is performed in both the craniocaudal and mediolateral oblique views along with computer-aided detection (CAD). Synthesized 2D images are generated from the tomosynthesis. FINDINGS: There are scattered areas of fibroglandular density (ACR BI-RADS breast composition Category b). There are no significant masses, abnormal calcifications, or other abnormalities. ULTRASOUND: CLINICAL INFORMATION: Physician palpated lump 8 9:00 region left breast COMPARISON: None TECHNIQUE: Targeted sonographic evaluation of the 7-12 o'clock region of the left breast was performed using a high frequency linear transducer. Selected archived documentation. FINDINGS: LEFT BREAST: There are no abnormalities in the 7-12 o'clock region of the left breast. US/US breast LT limited mamm only IMPRESSION: No mammographic signs of malignancy. No sonographic abnormalities in the left breast in the 7-12 o'clock region. Clinical follow-up advised. OVERALL ASSESSMENT: Mammography: BI-RADS 1 - Negative Ultrasound: BI-RADS 1 - Negative RECOMMENDATION: 1. Patient should be managed based on the clinical impression. 2. Otherwise, routine annual screening mammography. Results were provided to the patient at time of visit by the technologist. This patient's information was entered into a reminder system with a target due date for their next mammogram. Dictated By: Maria Guadalupe Moise MD Signed By: <Electronically signed by Maria Guadalupe Moise MD in OV> 02/09/24 1243 DD/ 1008 TD/TT: Home Help Aide: Shabbir Ahuja [facility] IMG US PROCEDURES Final R esult * (ABNORMAL) ThinPrep Imaging Pap and HPV mRNA E6/E7 (01/26/2024 11:19 AM EDT) HPV nRNA E6/E7 Not Detected Not Detected [facility] Comment:Methodology: Transcr iption-Mediated AmplificationThis assay detects E6/E7 viral messenger RNA (mRNA) from 14high-risk HPV types (16,18,31,33,35,39,45,51,52,56,58,59,66,68).Cervical sources are required for HPV testing.If a vaginal source from a patient who has had atotal hysterectomy with removal of cervix wassubmitted, please contact the testing laboratoryfor alternative testing options.For additional information, please refer [email or web address]/[email or web address](This link if provided for information/educational purposes only.)THIS TEST WAS PERFORMED AT:[facility] ANATOMIC PATHOLOGY[address] [place] [id number] KEARNS MD SOURCE: SEE NOTE [facility] Comment:Cervix Report Status: TNP [facility] Clinical Information: SEE NOTE [facility] Comment:Routine exam LMP: SEE NOTE [facility] Comment:NONE GIVEN Prev. PAP: SEE NOTE [facility] Comment:2020 Prev. BX: SEE NOTE [facility] Comment:NONE GIVEN Statement Of Adequacy: SEE NOTE [facility] Comment:Satisfactory for grace luation.Endocervical/transformation zone componentpresent. General Categorization: SEE NOTE(A) [facility] Comment:Cytology Results: Ep ithelial Cell Abnormality Interpretation/Result: SEE NOTE(A) [facility] Comment:Atypical Squamous Ce lls of UndeterminedSignificance (ASC-US) Cytology Comment SEE NOTE [facility] Comment:This Pap test has be en evaluated with computerassisted technology. Returning Officer: SEE NOTE [facility] Comment:YP, CT(ASCP)CT rach dominique location: [address] [address] Review Returning Officer: [facility] Pathologist SEE NOTE [facility] Comment:Neha Estrada M.D., Ph.D.,Board Certified in Anatomic Pathology andCytopathology(electronic signature)Consulting [address] [phone] PAP Infection [facility] See Note SEE NOTE [facility] Comment:EXPLANATORY NOTE:The Pap is a screening test for cervical cancer. It isnot a diagnostic test and is subject to false negativeand false positive results. It is most reliable when asatisfactory sample, regularly obtained, is submittedwith relevant clinical findings and history, and whenthe Pap result is evaluated along with historic andcurrent clinical information. 01/26/2024 11:1 9 AM EDT 01/27/2024 8:14 AM EDT Narrative [facility] - 02/03/2024 6:50 PM EDT SEE SCANNED RESULTS IN [id number] us Shabbir Ahuja CNM LAB PATHOLOGY ORDERABLES Final Result Performing Organization Address [facility] Co de Phone Number [facility] [address] [place] [phone] * Hepatitis C Antibody with Reflex to HCV, RNA, Quantitative, Real-Time PCR (01/13/2024 8:45 AM EDT) Hepatitis C Antibody Nonreactive Nonreactive [facility] Comment:Antibodies to HCV no t detected; does not exclude early acuteHCV infection. Blood Venous blood specimen / Unknown 01/13/2024 8:45 AM EDT 01/13/2024 2:20 PM EDT us Anyi Keys MD LAB BLOOD ORDERABLES Final Resul t Performing Organization Address City/[facility]/ZIP Co de Phone Number [facility] [address] [place] [address] [phone] * (ABNORMAL) Lipid Panel, Standard (01/13/2024 8:45 AM EDT) Triglycerides 242(H) <150 mg/dL [facility] Comment:Desirable Triglyceri de: less than 150 mg/dLBorderline High Triglyceride 150-199 mg/dLHigh Triglyceride: 200-499 mg/dLVery High Triglyceride: greater than or equal to 5OO mg/dL Cholesterol 222(H) <200 mg/dL [facility] Comment:Desirable Cholestero l: less than 200 mg/dLBorderline High Cholesterol: 200-239 mg/dLHigh Cholesterol: greater than 239 mg/dL LDL Cholesterol Calculated 133(H) <100 mg/dL [facility] Comment:Desirable LDL: less than 100 mg/dLNear Optimal/Above Optimal LDL: 110- 129 mg/dLBorderline High LDL: 130-159 mg/dLHigh LDL: 160-189 mg/dLVery High LDL: greater than or equal to 190 mg/dL HDL Cholesterol 41 >40 mg/dL [facility] Comment:Desirable HDL: great er than 40 mg/dL Note: This HDL assay may give artificially low results in patients with liver disease. Blood Venous blood specimen / Unknown 01/13/2024 8:45 AM EDT 01/13/2024 2:20 PM EDT Anyi Keys MD LAB BLOOD ORDERABLES Final Resul t [facility] [address] [place] [address] [phone] * Hm Colonoscopy (07/11/2017) Colonoscopy Normal Normal Wong Provider HEALTH MAINTENANCE Final Result from Last 3 Months or Most Recently Relevant to Health Maintenance Insurance [facility] C3 * Guarantor: Rebecca Wang Account Type Relation to Patient Date of Phone Billing Address Personal/Family Self [address] [place] Care Teams Sample Cutter Relationship Specialty Start Date End Date Anyi Keys MD [address] [place] [phone] PCP - General Family Medicine 06/29/12
--- OUTSIDE RECORDS SUMMARY | 2024-08-17 18:18 | XMS_ITS | Encounter Summary ---
Author Organization [employer] Address [address] [facility] [address] [place] [address] Care Team Providers Care Ladle Car Operator Name Role Phone Anyi Keys MD Primary Care Provider [phone] Reason for Visit * Reason Onset Date Comments Med Refill 07/22/2024 Encounter Details Date Type Department Care Team ([facility] st Contact Info) Description 07/22/2024 Refill [facility] [address] [place], [place] [phone] Anyi Keys MD [address] [place] [address] Hypercholesteremia Social History Tobacco Use Types Packs/Day [...] encounter Miscellaneous Notes * Telephone Encounter - Kathy Rodríguez LPN - 07/22/2024 2:52 PM EST Last seen 02/17/24. documented in this encounter Plan of Treatment Upcoming Encounters Date Type Department Care Team (Late st Contact Info) Description 10/22/2024 9:30 AM EDT Office Visit [facility] [address] [place] [address] Majo Spivey FNP [address] [place] [address] documented as of this encounter Visit Diagnoses Diagnosis Hypercholesteremia Pure hypercholesterolemia documented in this encounter Care Teams Ladle Car Operator Relationship Specialty Start Date End Date Anyi Keys MD [address] [place] [phone] PCP - General Family Medicine 06/29/12 documented as of this encounter
--- OUTSIDE RECORDS SUMMARY | 2024-08-17 18:18 | XMS_ITS | Encounter Summary ---
Author Organization [employer] Address [address] [place] [address] Care Team Providers Care Registered Veterinary Technician Name Role Phone Anyi Keys MD Primary Care Provider [phone] Reason for Visit * Reason Comments Med Refill Encounter Details Date Type Department Care Team ([facility] Contact Info) Description 07/30/2024 Refill [facility] [address] [place] [address] Anyi Keys MD [address] [place], [place] [phone] Social History Tobacco Use Types Packs/Day Years [...] t he electric, gas, oil or water [employer] threatened to shut off services in your [...] Description 10/22/2024 9:30 AM EDT Office Visit [facility] MED & PEDS [address] [place], [place] [phone] Majo Spivey, ANN [address] [place] [address] documented as of this encounter Visit Diagnoses Not on filedocumented in this encounter Care Teams Registered Veterinary Technician Relationship Specialty Start Date End Date Anyi Keys MD [address] [place] [address] PCP - General Family Medicine 06/29/12 documented as of this encounter
[2024-08-18 08:47] LABS: Bacterial Vaginosis PCR NEGATIVE (Negative); Candida Group PCR NOT DETECTED (Not Detect); Candida glab krusei PCR NOT DETECTED (Not Detect); Trichomonas vaginalis PCR NOT DETECTED (Not Detect)
== END 2024-08-17 18:17 | disposition home or self-care (01) ==
LOC: HO.HHCLNP 18:16
PROVIDERS: Visit Provider Advanced Practice Midwife
DX: N89.8 Other specified noninflammatory disorders of vagina (principal)
CPT/HCPCS: 81515

== ENCOUNTER 2024-12-18 08:31 | Outpatient (REF) | payer MEDICAID, SELFPAY ==
[2024-12-18 09:55] LABS: Estimated Average Glucose 123 mg/dL; Hemoglobin A1c % 5.9 % (<6.0); Total Hemoglobin (HGBA1C) 3383.8545 umol/L
[2024-12-18 10:02] LABS: Alanine Aminotransferase 21 U/L (0-31); Albumin Level 4.1 g/dL (3.5-5.0); Alkaline Phosphatase 74 U/L (39-117); Anion Gap 11 (12-20); Aspartate Amino Transferase 22 U/L (5-31); Bilirubin Direct < 0.2 mg/dL (0.0-0.5); Bilirubin Total 0.2 mg/dL (0.0-1.0); Blood Urea Nitrogen 16 mg/dL (9-16); Calcium 10.1 mg/dL (8.4-10.2); Carbon Dioxide 31 mmol/L (22-29); Chloride 103 mmol/L (96-108); Cholesterol 191 mg/dL (<200); Estimated Glomerular Filt Rate > 60; Glucose Random 94 mg/dL (60-115); HDL Cholesterol 35 mg/dL (>40); LDL Cholesterol Calculated 115 mg/dL (<100); Sodium 140 mmol/L (135-145); Total Protein 7.3 g/dL (6.5-8.0); Triglycerides 206 mg/dL (<150)
== END 2024-12-18 08:32 | disposition home or self-care (01) ==
LOC: HO.LAB 08:31
PROVIDERS: PCP Student in an Organized Health Care Education/Training Program; Visit Provider Student in an Organized Health Care Education/Training Program
DX: R73.03 Prediabetes (principal)
CPT/HCPCS: 36415; 80048; 80061; 80076; 83036

== ENCOUNTER 2024-12-30 09:24 | Outpatient (REF) | payer MEDICAID, SELFPAY ==
[2024-12-30 17:49] LABS: Urine Cytology See Pathology rpt
== END 2024-12-30 09:25 | disposition home or self-care (01) ==
LOC: HO.LNP 09:24
PROVIDERS: PCP Student in an Organized Health Care Education/Training Program; Visit Provider Nurse Practitioner Family
DX: R32 Unspecified urinary incontinence (principal); R33.9 Retention of urine, unspecified
CPT/HCPCS: 51798; 88112; 99212

== ENCOUNTER 2024-12-30 09:24 | Outpatient (AMB) | payer MEDICAID, SELFPAY ==
--- NOTE | 2024-12-30 09:25 | MHC.OFFVIS ---
Intake Visit Reasons: 6m/PVR Intake Note: Patient is present for 6M/PVR Urology Medication:bethanechol,imipramine Antibiotic Allergy:NONE Blood Thinner:NONE Todays PVR:58ML'S Residential Remodeling Subcontractor Required: Yes Residential Remodeling Subcontractor Services: Residential Remodeling Subcontractor Present Residential Remodeling Subcontractor Name: Yessica [id number] Allergies hydrocortisone Allergy (Unknown, Verified 06/30/24 10:00) Unknown olanzapine (From ZYPREXA) Allergy (Unknown, Verified 06/30/24 10:00) UNKNOWN quetiapine (From SEROQUEL) Allergy (Unknown, Verified 06/30/24 10:00) UNKNOWN Pramoxine HCl Allergy (Unknown, Uncoded 06/30/24 10:00) Unknown Skin Cleanser Allergy (Unknown, Uncoded 06/30/24 10:00) Unknown Medication List - Last Reconciled 12/30/24 by ANN Marin-VALERIA atorvastatin 40 mg PO QPM benztropine 0.5 mg PO BID bethanechol chloride 50 mg PO BID 90 days bisacodyl (Dulcolax (bisacodyl)) 10 mg (2 x 5 mg) PO BEDTIME calcium carbonate-vitamin D3 500 mg-10 mcg (400 unit) 1 tab PO DAILY cetirizine 10 mg PO DAILY divalproex (Depakote) 2 tabs PO BEDTIME docusate sodium (DOK) 0 mg PO docusate sodium (Colace) 100 mg PO BID fluphenazine HCl mg PO fluticasone propionate 50 mcg/actuation 1 spray intranasal DAILY imipramine HCl 20 mg (2 x 10 mg) PO BEDTIME 90 days lorazepam (Ativan) 1 tab PO TID PRN magnesium citrate 296 mL PO ONCE PRN metformin 500 mg PO DAILY olanzapine 15 mg PO BEDTIME omega-3 fatty acids 1,000 mg PO BID omeprazole 20 mg PO DAILY peg 400-propylene glycol 0.4-0.3 % (Lubricant Eye (PG-PEG 400)) 1 drp ophthalmic (eye) BID HPI Comments Details: Rebecca is a pleasant 59-year-old female patient of Dr. Keys who was accompanied by her [facility]. She has a past medical history of arthritis, depression, hypercholesteremia, enuresis, GERD, anxiety, developmental delay, and bipolar disorder she presents to the office today for follow-up of her overactive bladder. In discussion with the patient and her DIRECTOR OF SECURITY worker today she denies having had any bothersome urinary issues or concerns. She reports compliance with bethanechol and imipramine as prescribed. She does report noting infrequent episodes of vaginal itching however currently denies this to be an issue. Previous workup has included a retroperitoneal ultrasound 08/06 noting bilateral kidneys with no renal calculi, lesions, and or hydronephrosis. Bilateral ureteral jets are demonstrated. Pre void bladder volume is approximately 135 mL. Postvoid bladder volume is approximately 0 mL. 6.9 cm simple appearing right ovarian cyst is noted. This is a chronic finding however it does appear slightly increased since previous imaging in 2018. She denies urinary urgency, urinary frequency, incontinence, nocturia, hematuria, dysuria, foul smelling urine, changes to urinary stream, flank pain, fever, and or chills. She is happy with her current voiding parameters. Patient does have developmental delay and display director assists providing patient medical history during todays office visit. In office urinalysis results reviewed with the patient today. PVR 58 mLs. She otherwise offers no other issues or concerns at this time. [facility] Medical History COVID-19 vaccine administered History of COVID-19 History of anxiety Arthritis Elevated cholesterol GERD (gastroesophageal reflux disease) Depression History of developmental delay Hx of bipolar disorder Enureses Surgical History H/O colonoscopy Social History Household Members: Other Are you a primary animal caregiver to a significant other at home: No Do you presently have visiting nurse or other home services: Yes (resides in correction) Alcohol intake: never Patient Tobacco Use Status: Never used Tobacco Review of Systems Const Reports as per HPI Eyes Reports no additional complaints ENT Reports no additional complaints Card Reports no additional complaints Resp Reports no additional complaints GI Reports as per HPI Reports as per HPI Musc Reports as per HPI Neuro Reports as per HPI Psych Reports as per HPI Endo Reports no additional complaints Fareed/Lymph Reports no additional complaints Aller/Immun Reports no additional complaints Physical Exam Const General: cooperative, healthy appearing, comfortable, no acute distress, well developed, alert and awake Orientation/consciousness: oriented to person Limitations: no limitations HEENT Head: Yes normal to inspection, Yes normocephalic and Yes atraumatic Ears: hearing grossly normal bilaterally Neck Neck: Yes normal visual inspection and Yes trachea midline Chest Chest palpation & inspection: normal inspection of the chest Resp Effort & Inspection: normal respiratory effort and able to speak in complete sentences Cardio Rate: regular rate Neuro General: oriented to person Psych Appearance: grossly normal and well kempt Speech and movement: Normal speech and movement present and Clear speech present Affect: Labile affect present and Other affect and mood findings present (at times patient was emotional throughout todays) Attitude: cooperative Thought process: Other thought process findings present (patient developmentally delayed ) Insight: Limited insight present (Psych) Judgement: Limited judgement present (Psych) Office Procedures Post Void Residual Post Residual Void Post Void Residual (PVR): 58 [id number]-[id number] Void Residual by ultrasound Assessment & Plan Assessment & Plan (1) Incomplete bladder emptying: Code(s): R33.9 - Retention of urine, unspecified Category: Medical (2) Enureses: Code(s): R32 - Unspecified urinary incontinence Category: Medical Plan In office urinalysis results reviewed with the patient and her DIRECTOR OF SECURITY worker today. PVR 58 mL She currently denies any bothersome urinary issues or concerns. Continue bethanechol and imipramine as discussed and prescribed; refills provided She is happy with the current voiding parameters. We did discussed proper hygiene Continue limiting fluids 2-3 hours prior to bed to decrease episodes of enuresis. Follow-up in 6 months with PVR; or sooner with any issues, concerns, and or questions. Orders: Orders AMB Post Void Residual by ultrasound Today R33.9 - Retention of urine, unspecified Urine Cytology Today R32 - Unspecified urinary incontinence Patient Instructions: The patient had an opportunity to ask questions regarding the treatment plan. All questions were answered. Physical exam, labs, and imaging were discussed and reviewed in detail. As well as risks, benefits, and discussion of treatment choices. No major barriers to understanding were identified. The patient expressed understanding and agreement with the above treatment plan. The patient was made aware they should contact our office by phone for worsening of their current condition, the appearance of new symptoms, or with any questions or concerns. Compliance is encouraged with any medications and follow up testing that is ordered. It is a privilege to be allowed the opportunity to participate in? your urological care.? Again, if you have any questions or concerns If you have any questions or concerns please do not hesitate to contact me. The office is [phone]. This note is constructed using voice recognition software. While every effort has been made to ensure accuracy undergraduate advisor errors may have been included. Yours sincerely, DIANA Marin Coding Level of Care Code Est Pt Level 3 (49977) Complex EM visit Add On G2211 Diagnoses Incomplete bladder emptying R33.9 Enureses R32 CPT Codes Post Residual Void - PVR CPT Code: 31383-Aiub Void Residual by ultrasound ([id number])
--- OUTSIDE RECORDS SUMMARY | 2024-12-30 10:05 | XMS_ITS | Patient Health Record ---
Author Organization [facility] Address [address] [place] [id number] Care Team Providers Care Recruiter Name Role Phone DELANEY CLAYTON Primary Care Provider Khris Russ [phone] Allergies Allergen (clinical drug ingredient) Drug/Non Drug Allergy documented on EMR Reaction Allergy Type Onset Date Status quetiapine Seroquel Unknown Drug Allergy Active Reason For Referral No Information Medications Medication SIG (Take, Route, Frequency, Duration) Notes [...] one day for 2 days 12/09/2022 Active [place] 3 Active Immunizations Vaccine Route Administration Date Status Comme nts Influenza Unknown 04/26/2020 Administered Social History Tobacco Use: Social History Observation Description Date Details (start date - stop date) Never Smoker NA - NA Tobacco Use/Smoking Question Answer Notes Patient is a nonsmoker Alcohol Screen Question Answer Notes Did you have a drink containing alcohol in the p ast year? No Points 0 Interpretation Negative Section Notes: Nonsmoker, no alcohol Nonsmoker, no alcohol Nonsmoker, no alcohol Problems Problem Type SNOMED Code ICD Code Onset Dates Problem Status W/U Status Risk Notes Problem 418767896 Encounter for screening for malignant neoplasm of colon (Z12.11) Active confirmed Problem 44849659 Weight loss (R63.4) Active confirmed Problem 391347433 Gastroesophageal reflux disease without esophagitis (K21.9) Active confirmed Problem 91237946 Constipation, unspecified constipation type (K59.00) Active confirmed Problem 818511089 Abnormal barium swallow (R93.3) Active confirmed Problem 44470703 Esophageal dysph agia (R13.10) Active confirmed Plan Of Treatment Future Test Test Name Order Date COLONOSCOPY 05/06/2017 UPPER GI ENDOSCOPY BALL[place]ON DILATION OF ESOPH 11/01/2020 COLONOSCOPY 12/05/2022 Insurance Providers Payer Name Payer Address Payer Phone Subscriber Number Group Number Insured Name Patient Relationship to Insured Coverage Start Date Coverage End Date MEDICAID OF [employer] [facility] [address] [place] [phone] [id number] REY MANCIA Self - patient is the insured Medical (General) History Medical History History ICD Code Developmental delay disorder Mood disorder--depression, bipolar GERD Arthriis Denies PR,DM,CVA,Lung disease,renal dise ase hyperlipidemia depression allergies anxiety [...]
== END 2024-12-30 09:56 | disposition home or self-care (01) ==
LOC: HO.HUSH 09:24
PROVIDERS: PCP Student in an Organized Health Care Education/Training Program; Visit Provider Nurse Practitioner Family
DX: R33.9 Retention of urine, unspecified (principal); R32 Unspecified urinary incontinence
CPT/HCPCS: 99213

== ENCOUNTER 2025-01-27 08:35 | Outpatient (REF) | payer MEDICAID, SELFPAY ==
--- OUTSIDE RECORDS SUMMARY | 2025-01-27 08:47 | XMS_ITS | Patient Health Record ---
Author Organization [facility] Address [address] [place] [address] Care Team Providers Care Food And Beverage Attendant Name Role Phone DELANEY CLAYTON Primary Care Provider Khris Russ [phone] Allergies Allergen (clinical drug ingredient) Drug/Non Drug [...] one day for 2 days 12/09/2022 Active [place] 3 Active Immunizations Vaccine Route Administration Date [...] Problem Status W/U Status Risk Notes Problem 622715671 Encounter for screening for malignant neoplasm of colon (Z12.11) Active confirmed Problem 06159470 Weight loss (R63.4) Active confirmed Problem 955578461 Gastroesophageal reflux disease without esophagitis (K21.9) Active confirmed Problem 35559850 Constipation, unspecified constipation type (K59.00) Active confirmed Problem 795986428 Abnormal barium swallow (R93.3) Active confirmed Problem 97205355 Esophageal dysph agia (R13.10) Active confirmed Plan Of Treatment Future Test Test Name Order Date COLONOSCOPY 05/06/2017 UPPER GI ENDOSCOPY [place] DILATION OF ESOPH 11/01/2020 COLONOSCOPY 12/05/2022 Insurance Providers Payer Name Payer Address Payer Phone Subscriber Number Group Number Insured Name Patient Relationship to Insured Coverage Start Date Coverage End Date MEDICAID OF [facility] [address] [place] [phone] [id number] REY MANCIA Self - patient is the insured Medical (General) History Medical History History ICD Code Developmental delay disorder Mood disorder--depression, bipolar GERD Arthriis Denies ME,DM,CVA,Lung disease,renal dise ase hyperlipidemia depression allergies anxiety [...]
--- OUTSIDE RECORDS SUMMARY | 2025-01-27 08:47 | XMS_ITS | Encounter Summary ---
Author Organization [employer] Address [address] [facility] [address] [place] [address] Care Team Providers Care Cotton Puller Name Role Phone Anyi Keys MD Primary Care Provider Reason for Visit * Reason Onset Date Comments Med Refill 11/10/2024 Encounter Details Date Type Department Care Team ([facility] st Contact Info) Description 11/10/2024 Refill [facility]S [address] [place] [address] Anyi Keys MD [address] [place] [address] Developmental delay Social History Tobacco Use Types Packs/Day Years [...] as of this encounter Plan of Treatment Not on file documented as of this encounter Visit Diagnoses Diagnosis Developmental delay Unspecified delay in development documented in this encounter Additional Health Concerns Assessment Noted Time PHQ-9 Depression Total Score: 0 08/17/19 25 9:08 AM EST documented as of this encounter Care Teams Cotton Puller Relationship Specialty Start Date End Date Anyi Keys MD [address] [place] [id number] PCP - General Family Medicine 06/29/12 documented as of this encounter
== END 2025-01-27 08:36 | disposition home or self-care (01) ==
LOC: HO.CHCLDS 08:35
PROVIDERS: Visit Provider Nurse Practitioner Family
DX: R89.6 Abnormal cytological findings in specimens from other organs, systems and tissues (principal)
CPT/HCPCS: 88112

== ENCOUNTER 2025-02-22 08:13 | Outpatient (REF) | payer MEDICAID, SELFPAY ==
--- OUTSIDE RECORDS SUMMARY | 2025-02-22 08:17 | XMS_ITS | Encounter Summary ---
Author Organization [employer] [facility] Address [address] [facility] [address] [place] [address] Care Team Providers Care Plant Associate Name Role Phone Anyi Keys MD Primary Care Provider [phone] Reason for Visit * Reason Onset Date Comments Med Refill 11/10/2024 Encounter Details Date Type Department Care Team ([facility] st Contact Info) Description 11/10/2024 Refill [facility] MED & PEDS [address] [place] [address] Anyi Keys MD [address] [place] [address] Developmental delay Social History Tobacco Use Types [...] documented as of this encounter Care Teams Plant Associate Relationship Specialty Start Date End Date Anyi Keys MD [address] [place] [phone] PCP - General Family Medicine 06/29/12 documented as of this encounter
--- OUTSIDE RECORDS SUMMARY | 2025-02-22 08:17 | XMS_ITS | Patient Health Record ---
Author Organization [facility] Address [address] [place] [address] Care Team Providers Care Door Hanger Name Role Phone DELANEY CLAYTON Primary Care Provider Khris Russ [phone] Allergies Allergen (clinical drug ingredient) Drug/Non Drug [...] one day for 2 days 12/09/2022 Active [place] 3 Active Immunizations Vaccine Route Administration Date [...] Problem Status W/U Status Risk Notes Problem 525398434 Encounter for screening for malignant neoplasm of colon (Z12.11) Active confirmed Problem 96519277 Weight loss (R63.4) Active confirmed Problem 283426169 Gastroesophageal reflux disease without esophagitis (K21.9) Active confirmed Problem 09233950 Constipation, unspecified constipation type (K59.00) Active confirmed Problem 102487204 Abnormal barium swallow (R93.3) Active confirmed Problem 20295143 Esophageal dysph agia (R13.10) Active confirmed Plan Of Treatment Future Test Test Name Order Date COLONOSCOPY 05/06/2017 UPPER GI ENDOSCOPY BALL[place]ON DILATION OF ESOPH 11/01/2020 COLONOSCOPY 12/05/2022 Insurance Providers Payer Name Payer Address Payer Phone Subscriber Number Group Number Insured Name Patient Relationship to Insured Coverage Start Date Coverage End Date [facility]ICAID [facility] [address] [place] [phone] [id number] REY MANCIA Self - patient is the insured Medical (General) History Medical History History ICD Code Developmental delay disorder Mood disorder--depression, bipolar GERD Arthriis Denies [place],DM,CVA,Lung disease,renal dise ase hyperlipidemia depression allergies anxiety [...]
== END 2025-02-22 08:14 | disposition home or self-care (01) ==
LOC: HO.MAMMO 08:13
PROVIDERS: PCP Student in an Organized Health Care Education/Training Program; Visit Provider Student in an Organized Health Care Education/Training Program
DX: Z12.31 Encounter for screening mammogram for malignant neoplasm of breast (principal)
CPT/HCPCS: 77063; 77067

== ENCOUNTER → 2025-02-22 08:15 | Outpatient (BNV) | payer MEDICAID, SELFPAY | PROVIDERS: PCP Student in an Organized Health Care Education/Training Program; Visit Provider Radiology Body Imaging | DX: Z12.31 Encounter for screening mammogram for malignant neoplasm of breast (principal) | CPT/HCPCS: 77063; 77067 ==

== ENCOUNTER 2025-03-11 15:44 | Emergency (ER) | payer MEDICAID, SELFPAY ==
--- NOTE | 2025-03-11 | ECG_ITS ---
Test Reason : cp Blood Pressure : */* mmHG Vent. Rate : 92 BPM Atrial Rate : 92 BPM P-R Int : 136 ms QRS Dur : 68 ms QT Int : 358 ms P-R-T Axes : 49 54 59 degrees QTcB Int : 442 ms Normal sinus rhythm Low voltage QRS Borderline ECG When compared with ECG of 24-Sep-2017 09:24, No significant change was found Referred By: Generic ED Physician Electronically Signed By: LUDA SORTO
--- OUTSIDE RECORDS SUMMARY | 2025-03-11 15:20 | XMS_ITS | Encounter Summary ---
Author Organization [employer] [facility] Address [address] [facility] [address] [place] [address] Care Team Providers Care Insurance Risk Surveyor Name Role Phone Anyi Keys MD Primary Care Provider [phone] Encounter Details Date Type Department Care Team ([facility] st Contact Info) Description 03/11/2025 3:20 PM EDT Office Visit [facility] [address] [place] [phone] Otilia Hallman MD [address] [place], [place] [phone] Other chest pain (Primary Dx) Social History Tobacco Use Types [...] Access Answer Date Recorded Internet Access Q1 No 11/25/2024 Internet Access Q2 I do not want or need it 11/11 Comments No Sex and Gender Information Value Date Recorded Sex Assigned at Female 05/13/2022 10:18 AM EDT Legal Sex Female 10:18 AM EDT Gender Identity Choose not to disclose 10:18 AM EDT Sexual Orientation Choose not to disclose 2021 10:18 AM EDT documented as of this encounter Last Filed Vital Signs Vital Sign Reading Time Taken Comments Blood Pressure 133/80 03/11/2025 3:13 PM EDT Pulse 99 03/11/2025 3:13 PM EDT Temperature 36.8 C (98.2 F) 03/11/2025 3:13 PM EDT Respiratory Rate 17 03/11/2025 3:13 PM EDT Oxygen Saturation 96% 03/11/2025 3:13 PM EDT Inhaled Oxygen Concentration - - Weight - - Height - - Body Mass Index - - documented in this encounter Progress Notes * Otilia Álvarez MD - 03/11/2025 3:20 PM EDT SUBJECTIVE: Rebecca Wang is a 59 y.o. year old adult who presents for acute visit . Acute Concerns: This is a 59-year-old female with developmental delay living in a usp who is here with caregiver, she tells me she has been having right shoulder pain and vaginal pain and then today also she developed chest pain radiating to the left arm, patient is poor historian Social History Social History Narrative Not on file Problem List[1] Arthropathy Developmental delay Gastroesophageal reflux disease Hypercholesterolemia Mood disorder (CMS/HCC) Sore throat Acute right ankle pain Primary hypertension Prediabetes Family History[2] Review of Systems Constitutional: Negative. HENT: Negative. Respiratory: Negative. Cardiovascular: Positive for chest pain. Negative for palpitations and leg swelling. Genitourinary: Positive for vaginal pain. Negative for decreased urine volume, vaginal bleeding andvaginal discharge. Musculoskeletal: Positive for arthralgias. Neurological: Negative. OBJECTIVE: Vitals: 03/11/25 1513 BP: 133/80 BP Location: Left arm Patient Position: Sitting BP Cuff Size: Adult Pulse: 99 Resp: 17 Temp: 98.2 ??F (36.8 ??C) TempSrc: Oral SpO2: 96% Physical Exam Constitutional: Appearance: Normal appearance. Cardiovascular: Rate and Rhythm: Normal rate and regular rhythm. Pulmonary: Effort: Pulmonary effort is normal. Breath sounds: Normal breath sounds. Abdominal: General: Abdomen is flat. Palpations: Abdomen is soft. Musculoskeletal: Right lower leg: No edema. Left lower leg: No edema. Neurological: Mental Status: Rebecca is alert. Follow Up: No follow-ups on file. Medications Ordered Prior to Encounter[3] Problem List Items Addressed This Visit Other chest pain - Primary EKG was attempted to be done but likely it was not working for this reason I could not sail maker Patient is poor historian complaining of chest pain radiating to the left arm I decided to prescribe aspirin 325 mg and refer her to the emergency room for further workup [1] Patient Active Problem List Diagnosis Arthropathy Developmental delay Gastroesophageal reflux disease Hypercholesterolemia Mood disorder ([facility]) Sore throat Acute right ankle pain Primary hypertension Prediabetes Other chest pain [2] No family history on file. [3] Current Outpatient Medications on File Prior to Visit Medication Sig Dispense Refill Acetaminophen Extra Strength 500 MG tablet Take 1 tablet (500 mg) by mouth every 6 (six) hours if needed (pain). 90 tablet 3 albuterol 108 (90 Base) MCG/ACT inhaler Inhale 2 puffs every 4 (four) hours if needed. Artificial Tears 0.2-0.2-1 % solution atorvastatin (Lipitor) 40 MG tablet Take 1 tablet (40 mg) by mouth at bedtime. 90 tablet 1 benztropine (Cogentin) 0.5 MG tablet Take 0.5 mg by mouth 2 times daily. bethanechol (Urecholine) 50 MG tablet Calcium Carb-Cholecalciferol 500-10 MG-MCG chewable tablet Chew 1 tablet at bedtime. 90 tablet 3 cetirizine (ZyrTEC) 10 MG tablet Take 1 tablet (10 mg) by mouth in the morning. 30 tablet 9 citalopram (CeleXA) 40 MG tablet Take 40 mg by mouth in the morning. diclofenac (Cataflam) 50 MG tablet Take 1 tablet (50 mg) by mouth 3 times daily. 60 tablet 0 divalproex (Depakote) 500 MG EC tablet TAKE 2 TABLET BY MOUTH AT BEDTIME docusate sodium (Colace) 100 MG capsule TAKE 1 CAPSULE BY ORAL ROUTE 2 TIMES EVERY DAY 180 capsule 1 fluPHENAZine (Prolixin) 2.5 MG tablet Take 2.5 mg by mouth 2 times daily. fluticasone (Flonase) 50 MCG/ACT nasal spray Administer 2 sprays into each nostril Once per day. Shake gently. Before first use, prime pump. After use, clean tip and replace cap. 16 g 1 haloperidol (Haldol) 1 MG tablet Take 1 mg by mouth 2 times daily. HM Lubricating Tears 0.4-0.3 % solution Administer 1 drop into both eyes 2 times daily. imipramine (Tofranil) 10 MG tablet Take 20 mg by mouth at bedtime. LORazepam (Ativan) 0.5 MG tablet metFORMIN (Glucophage) 500 MG tablet Take 1 tablet (500 mg) by mouth with breakfast. 30 tablet 11 OLANZapine (ZyPREXA) 10 MG tablet TAKE 1 TABLET BY MOUTH AT BEDTIME DIRECTED omega-3 (fish oil) 300 MG capsule TAKE 1 CAPSULE BY MOUTH EVERY 12 HOURS 60 capsule 5 omeprazole (PriLOSEC) [address] capsule TAKE 1 CAPSULE BY ORAL ROUTE EVERY MORNING BEFORE A MEAL 90 capsule 3 traZODone (Desyrel) 100 MG tablet TAKE 2 TABLET BY MOUTH AT BEDTIME No current facility-administered medications on file prior to visit. documented in this encounter Miscellaneous Notes * Assessment & Plan Note - Otilia Álvarez MD - 03/11/2025 3:23 PM EDT Associated Problem(s): Other chest pain EKG was attempted to be done but likely it was not working for this reason I could not sail maker Patient is poor historian complaining of chest pain radiating to the left arm I decided to prescribe aspirin 325 mg and refer her to the emergency room for further workup * Addendum Note - Yelena Leong RN - 03/11/2025 3:20 PM EDTAddended by: YELENA LEONG on: 03/11/2025 03:41 PM Modules accepted: Orders documented in this encounter Plan of Treatment Not on file documented as of this encounter Visit Diagnoses Diagnosis Other chest pain- Primary documented in this encounter Administered Medications Inactive Administered Medications - up to 3 most recent administrations Medication Order MAR Action Action Date Dose Rate Site aspirin chewable tablet 324 mg 324 mg, Oral, Once, On Fri03/11/25 at 1545, For 1 doseIndications:Other chest pain Given 03/11/2025 3:45 PM EDT 324 mg documented in this encounter Additional Health Concerns Assessment Noted Time PHQ-9 Depression Total Score: 0 08/17/19 9:08 AM EST documented as of this encounter Care Teams Insurance Risk Surveyor Relationship Specialty Start Date End Date Anyi Keys MD [address] [place] [address] PCP - General Family Medicine 06/29/12 documented as of this encounter
[2025-03-11 15:48] VITALS: BP 142/88; BP 149/66; PULSE 89; PULSE 98; RESP 16; TEMP 37; O2SAT 95; O2SAT 96; BMI 27.6
--- NOTE | 2025-03-11 16:09 | ED.CHESTPAIN ---
HPI - Chest Pain General Chief Complaint: Chest Pain Stated Complaint: From [facility], CP, 12 lead WNL Time Seen by Provider: 03/11/25 16:04 History of Present Illness ED Provider: jessica Related Data Home Medications ?Medication ?Instructions ?Recorded ?Confirmed divalproex 500 mg tablet,delayed 2 tab PO BEDTIME 11/07/20 12/30/24 release (Depakote) fluticasone propionate 50 1 spray intranasal DAILY 11/07/20 12/30/24 mcg/actuation nasal spray,suspension lorazepam 0.5 mg tablet (Ativan) 1 tab PO TID PRN Anxiety 11/07/20 12/30/24 omeprazole 20 mg capsule,delayed 20 mg PO DAILY 11/07/20 12/30/24 release atorvastatin 40 mg tablet 40 mg PO QPM 01/06/23 12/30/24 benztropine 0.5 mg tablet 0.5 mg PO BID 01/06/23 12/30/24 calcium 500 mg (as carbonate)-vit 1 tab PO DAILY 01/06/23 12/30/24 D3 10 mcg (400 unit) chewable tablet cetirizine 10 mg tablet 10 mg PO DAILY 01/06/23 12/30/24 docusate sodium 100 mg capsule 0 mg PO 01/06/23 12/30/24 (DOK) peg 400-propylene glycol 0.4 %-0.3 1 drp ophthalmic (eye) BID 07/08/23 12/30/24 % eye drops (Lubricant Eye (PG-PEG 400)) fluphenazine HCl 5 mg tablet mg PO 01/06/24 12/30/24 docusate sodium 100 mg capsule 100 mg PO BID 06/02/24 12/30/24 (Colace) metformin 500 mg tablet 500 mg PO DAILY 06/02/24 12/30/24 olanzapine 15 mg tablet 15 mg PO BEDTIME 06/02/24 12/30/24 omega-3 fatty acids 1,000 mg 1,000 mg PO BID 06/02/24 12/30/24 capsule Previous Rx's ?Medication ?Instructions ?Recorded bisacodyl 5 mg tablet,delayed 10 mg (2 x 5 mg) PO BEDTIME #180 06/02/24 release (Dulcolax (bisacodyl)) tabs magnesium citrate 296 ml PO ONCE PRN constipation 06/02/24 #296 mL bethanechol chloride 50 mg tablet 50 mg PO BID 90 days #180 tabs 06/30/24 imipramine HCl 10 mg tablet 20 mg (2 x 10 mg) PO BEDTIME 90 06/30/24 days #180 tabs Allergies Allergy/AdvReac Type Severity Reaction Status Date / Time hydrocortisone Allergy Unknown Unknown Verified 03/11/25 15:59 olanzapine (From ZYPREXA) Allergy Unknown UNKNOWN Verified 03/11/25 15:59 quetiapine (From SEROQUEL) Allergy Unknown UNKNOWN Verified 03/11/25 15:59 Pramoxine HCl Allergy Unknown Unknown Uncoded 06/30/24 10:00 Skin Cleanser Allergy Unknown Unknown Uncoded 06/30/24 10:00 PMFSH Past Medical History Medical History COVID-19 vaccine administered History of COVID-19 History of anxiety Arthritis Elevated cholesterol GERD (gastroesophageal reflux disease) Depression History of developmental delay Hx of bipolar disorder Enureses Surgical History H/O colonoscopy Social History Social History Household Members: Other Are you a primary pet care associate to a significant other at home: No Do you presently have visiting nurse or other home services: Yes (resides in [place] [facility]) Alcohol intake: never Patient Tobacco Use Status: Never used Tobacco Smoked in Last 30 Days: No Use of substances other than those prescribed or required for medical reasons: No Advance Directives: No Advance Directives Information Provided: No Physical Exam Vital Signs: Vital Signs: Last Vital Signs Temp 98.9 F 03/11/25 18:34 Pulse 96 03/11/25 18:34 Resp 18 03/11/25 18:34 BP 134/77 03/11/25 18:34 Pulse Ox 98 03/11/25 18:18 O2 Del Method Room Air 03/11/25 18:18 BMI result Body Mass Index 27.6 Medical Decision Making Medical Decision Making MDM Narrative: 59-year-old female with atypical chest pain. The worker who is with her knows her for 8 years and said she says this same complaint nearly daily unclear why staff sent her for evaluation today. The patient herself tells me she has central chest pressure ongoing for days. No pleuritic component denies cough or fever or phlegm production/hemoptysis. Denies leg edema. No recent injuries to the chest or chest wall. The patient has a presentation complicated by underlying developmental disorder and/or psychiatric/schizophrenic or schizoaffective and polypharmacy including antipsychotics she however is not currently psychotic she is calm and cooperative and comfortable looking. Reassuring cardiovascular exam ECG nonischemic troponin x1 negative cleared for discharge staff wanted urinalysis this does not suggest UTI patient will be discharged home Differential Diagnosis Musculoskeletal, somatic symptom Lab Data MDM Lab Attestation statement: I reviewed the patient's lab results. Labs: Lab Results 03/11/25 03/11/25 Range/Units 17:14 17:23 Troponin I High Sens < 2.7 (<3.5-17.0) ng/L Urine Color Yellow Urine Appearance Hazy Urine pH 8.5 (5.0-9.0) Ur Specific [place] 1.020 (1.005-1.025) Urine Protein Trace (Neg-Trace) mg/dL Urine Glucose (UA) Negative (Negative) mg/dL Urine Ketones Trace (Negative) mg/dL Urine Blood Negative (Negative) Urine Nitrite Negative (Negative) Ur Leukocyte Esterase Trace H (Negative) Urine RBC 11-20 H (0-2) /HPF Urine WBC 6-10 H (0-5) /HPF Ur Squamous Epith Cells 0-2 (0-2) /HPF Urine Bacteria None Seen (None Seen) Hyaline Casts 0-2 (0-2) /LPF Independent Interpretation I performed an independent interpretation of an: EKG (Normal sinus rhythm no ischemic changes) Discharge Plan Discharge Clinical Impression: Chest pain Patient Disposition: Home, Self-Care Instructions: Chest Pain (DC), Noncardiac Chest Pain (ED) Additional Instructions: Patient was tested with troponin enzyme which was negative. EKG was normal and reassuring. She also had a urinalysis that had several red and white cells but overall impression is that it was not suggestive of urinary tract infection there was no nitrite and the patient did not express to me symptomatology of urinary tract infection. If the staff continues to have concern her PCP may want to follow up the culture of the urine recent today or retest or treat urinary tract infection empirically but I do not think it is necessary at this time Prescriptions: No Action divalproex [Depakote] 500 mg tablet,delayed release (DR/EC) 2 tab PO BEDTIME lorazepam [Ativan] 0.5 mg tablet 1 tab PO TID PRN (Reason: Anxiety) omeprazole [Prilosec] 20 mg Capsule,Delayed Release(Dr/Ec) 20 mg PO DAILY fluticasone propionate [Flonase] 50 mcg/actuation Wallace,Suspension 1 spray INTRANASAL DAILY docusate sodium [DOK] 100 mg capsule 0 mg PO cetirizine 10 mg tablet 10 mg PO DAILY calcium carbonate-vitamin D3 500 mg-10 mcg (400 unit) tablet,chewable 1 tab PO DAILY benztropine 0.5 mg tablet 0.5 mg PO BID atorvastatin 40 mg tablet 40 mg PO QPM Lubricant Eye (PG-PEG 400) 0.4-0.3 % drops 1 drp ophthalmic (eye) BID fluphenazine HCl 5 mg tablet PO metformin 500 mg tablet 500 mg PO DAILY olanzapine 15 mg tablet 15 mg PO BEDTIME omega-3 fatty acids 1,000 mg capsule 1,000 mg PO BID docusate sodium [Colace] 100 mg capsule 100 mg PO BID bisacodyl [Dulcolax (bisacodyl)] 5 mg tablet,delayed release (DR/EC) 10 mg PO BEDTIME Qty: 180 4RF magnesium citrate Solution 296 ml PO ONCE PRN (Reason: constipation) Qty: 296 1RF Rx Instructions: Drink one bottle at 17:00 and 2nd bottle at 22:00 bethanechol chloride 50 mg tablet 50 mg PO BID 90 Days Qty: 180 3RF imipramine HCl 10 mg tablet 20 mg PO BEDTIME 90 Days Qty: 180 2RF Interventions: ED Discharge Assessment Last Done: 03/11/25 18:18 Discharge Date/Time: 03/11/25 18:44 Print Language: Sinhala
--- OUTSIDE RECORDS SUMMARY | 2025-03-11 16:15 | XMS_ITS | Encounter Summary ---
Author Organization [employer] Address [address] [place] [address] [address] [place] [address] Care Team Providers Care Manager Of Housekeeping Name Role Phone Anyi Keys MD Primary Care Provider [phone] Encounter Details Date Type Department Care Team ([facility] Contact Info) Description 07/01/2022 Telephone [facility] CH[facility] MED & PEDS [address] [place], [place] [id number] Anyi Keys MD [address] [place] [address] Social History Tobacco Use Types Packs/Day Years [...] on filedocumented in this encounter Care Teams Manager Of Housekeeping Relationship Specialty Start Date End Date Anyi Keys MD [address] [place] [id number] PCP - General Family Medicine 06/29/12 documented as of this encounter
--- OUTSIDE RECORDS SUMMARY | 2025-03-11 16:15 | XMS_ITS | Encounter Summary ---
Author Organization [employer] Address [address] [place] [address] [address] [place] [address] Care Team Providers Care Impregnator Name Role Phone Anyi Keys MD Primary Care Provider [phone] Encounter Details Date Type Department Care Team ([facility] Contact Info) Description 02/13/2023 Orders Only [facility] CHC MED & PEDS [address] [place] [address] Donavan Dalton MD [address] [place] [address] Encounter for hearing examination, unspecified whether abnormal [...] on file documented as of this encounter Procedures Procedure [...] PM EDT Narrative 03/06/2023 5:02 PM [facility]T [facility] [address] [place], [place] [address] Ultrasound Report Signed Patient: Rebecca Wang MR#: [id number] 5 : 1965 Acct:[id number] Age/Sex: 57 / F ADM Date: 03/06/23 Loc: HO.MAMMO Attending Dr: Ysabel Rollins NP Ordering Physician: YSABEL ROLLINS NP Date of Service: 03/06/23 Procedure(s): US breast LT limited mamm only Accession Number(s): [id number] cc: YSABEL ROLLINS NP EXAMINATION: MM DIAGNOSTIC [...] in OV> 03/06/23 1659 DD/ 1453 TD/TT: Gas Fitter Helper: Procedure Note Donotuseinterpreter, Image - 03/06/2023 [facility] [address] [place], [place] [address] Ultrasound Report Signed Patient: Maddie Wang#: [id number] 5 : 1965Acct:[id number] Age/Sex: 57 / FADM Date: 03/06/23 Loc: HO.MAMMO Attending Dr: Ysabel Rollins NP Ordering Physician: YSABEL ROLLINS NP Date of Service: 03/06/23 Procedure(s): US breast LT limited mamm only Accession Number(s): [id number] cc: YSABEL ROLLINS NP EXAMINATION: MM DIAGNOSTIC [...] by Davi Serrano MD in OV> 03/06/23 6375 DD/ 0513 TD/TT: Gas Fitter Helper: us Ysabel Rollins MANAGER TRAFFIC IMG US PROCEDURES Final Result * BI Mammogram Diagnostic Tomosynthesis Bilateral (03/06/2023 2:25 PM EDT) Anatomical Region Laterality Modality Breast Bilateral Mammography 03/06/2023 2:25 PM EDT Narrative 03/06/2023 5:02 PM EDT [facility] [address] [place], [place] [address] Mammography Report Signed Patient: Rebecca Wang MR#: [id number] 5 : 1965 Acct:[id number] Age/Sex: 57 / F ADM Date: 03/06/23 Loc: HO.MAMMO Attending Dr: Ysabel Rollins NP Ordering Physician: YSABEL ROLLINS NP Results: 1Negati ve Date of Service: 03/06/23 Follow Up: 1 Year From Orig ina Mammogram Procedure(s): MM tomosynthesis diagnostic BI Accession Number(s): [id number] cc: YSABEL ROLLINS NP EXAMINATION: MM DIAGNOSTIC [...] Serrano MD in OV> 03/06/23 1659 DD/ 1425 TD/TT: Gas Fitter Helper: Procedure Note Donotuseinterpreter, Image - 03/06/2023 [facility] [address] [place] [address] Mammography Report Signed Patient: Rebecca Wang#: [id number] 5 : 1965Acct:[id number] Age/Sex: 57 / FADM Date: 03/06/23 Loc: HO.MAMMO Attending Dr: Ysabel Rollins NP Ordering Physician: YSABEL ROLLINS NPResults: 1Negati ve Date of Service: 03/06/23Follow Up: 1 Year From Orig inal Mammogram Procedure(s): MM tomosynthesis diagnostic BI Accession Number(s): [id number] cc: YSABEL ROLLINS NP EXAMINATION: MM DIAGNOSTIC [...] Serrano MD in OV> 03/06/23 1659 DD/ 1425 TD/TT: Gas Fitter Helper: us Ysabel Rollins MANAGER TRAFFIC IMG BI PROCEDURES Final Result documented in this encounter Visit Diagnoses Diagnosis Encounter for hearing examination, unspecified whether abnormal findings- Primary documented in this encounter Care Teams Impregnator Relationship Specialty Start Date End Date Anyi Keys MD [address] [place] [address] PCP - General Family Medicine 06/29/12 documented as of this encounter
--- OUTSIDE RECORDS SUMMARY | 2025-03-11 16:15 | XMS_ITS | Patient Health Record ---
Author Organization [facility] Address [address] [place] [id number] Care Team Providers Care Enterprise Software Engineer Name Role Phone DELANEY CLAYTON Primary Care Provider Khris Russ [phone] Allergies Allergen (clinical drug ingredient) Drug/Non Drug [...] one day for 2 days 12/09/2022 Active [place] 3 Active Immunizations Vaccine Route Administration Date [...] Problem Status W/U Status Risk Notes Problem 327243915 Encounter for screening for malignant neoplasm of colon (Z12.11) Active confirmed Problem 56427213 Weight loss (R63.4) Active confirmed Problem 073268996 Gastroesophageal reflux disease without esophagitis (K21.9) Active confirmed Problem 81305316 Constipation, unspecified constipation type (K59.00) Active confirmed Problem 429683801 Abnormal barium swallow (R93.3) Active confirmed Problem 15013510 Esophageal dysph agia (R13.10) Active confirmed Plan Of Treatment Future Test Test Name Order Date COLONOSCOPY 05/06/2017 UPPER GI ENDOSCOPY [place] DILATION OF ESOPH 11/01/2020 COLONOSCOPY 12/05/2022 Insurance Providers Payer Name Payer Address Payer Phone Subscriber Number Group Number Insured Name Patient Relationship to Insured Coverage Start Date Coverage End Date [facility] [address] [place] [phone] [id number] REY MANCIA Self - patient is the insured Medical (General) History Medical History History ICD Code Developmental delay disorder Mood disorder--depression, bipolar GERD Arthriis Denies SD,DM,CVA,Lung disease,renal dise ase hyperlipidemia depression allergies anxiety [...]
--- OUTSIDE RECORDS SUMMARY | 2025-03-11 16:15 | XMS_ITS | Clinical Summary ---
Author Organization [employer] Address [address] [facility] [facility] [address] [place] [address] Care Team Providers Care Rover Tender Name Role Phone Anyi Keys MD Primary Care Provider [phone] Allergies No known active allergies Medications albuterol 108 (90 Base) MCG/ACT inhaler Inhale 2 puffs every 4 (four) hours if needed. 4 Active benztropine (Cogentin) 0.5 MG tablet Take 0.5 mg by mouth 2 times daily. 2 Active citalopram (CeleXA) 40 MG tablet Take 40 mg by mouth in the morning. 2 Active divalproex (Depakote) 500 MG EC tablet TAKE 2 TABLET BY MOUTH AT BEDTIME 2 Active fluPHENAZine (Prolixin) 2.5 MG tablet Take 2.5 mg by mouth 2 times daily. 3 Active haloperidol (Haldol) 1 MG tablet Take 1 mg by mouth 2 times daily. 2 Active imipramine (Tofranil) 10 MG tablet Take 20 mg by mouth at bedtime. 3 Active OLANZapine (ZyPREXA) 10 MG tablet TAKE 1 TABLET BY MOUTH AT BEDTIME DIRECTED 3 Active HM Lubricating Tears 0.4-0.3 % solution Administer 1 drop into both eyes 2 times daily. 2 Active traZODone (Desyrel) 100 MG tablet TAKE 2 TABLET BY MOUTH AT BEDTIME 2 Active LORazepam (Ativan) 0.5 MG tablet 3 Active Artificial Tears 0.2-0.2-1 % solution 3 Active bethanechol (Urecholine) 50 MG tablet 3 Active diclofenac (Cataflam) 50 MG tablet Take 1 tablet (50 mg) by mouth 3 times daily. 60 tablet 4 Active fluticasone (Flonase) 50 MCG/ACT nasal spray Administer 2 sprays into each nostril Once per day. Shake gently. Before first use, prime pump. After use, clean tip and replace cap. 16 g 1 5 Active omeprazole (PriLOSEC) [address] capsule TAKE 1 CAPSULE BY ORAL ROUTE EVERY MORNING BEFORE A MEAL 90 capsule 3 5 Active metFORMIN (Glucophage) 500 MG tablet Take 1 tablet (500 mg) by mouth with breakfast. 30 tablet 11 5 11/26/19 26 Active atorvastatin (Lipitor) 40 MG tablet Take 1 tablet (40 mg) by mouth at bedtime. 90 tablet 1 5 Active omega-3 (fish oil) 300 MG capsuleIndicatio ns:Hypercholeste remia TAKE 1 CAPSULE BY MOUTH EVERY 12 HOURS 60 capsule 5 5 Active cetirizine (ZyrTEC) 10 MG tabletIndication s:Environmental and seasonal allergies Take 1 tablet (10 mg) by mouth in the morning. 30 tablet 9 5 Active Calcium Carb-Cholecalcif nj 500-10 MG-MCG chewable tabletIndication s:Developmental delay Chew 1 tablet at bedtime. 90 tablet 3 5 Active Acetaminophen Extra Strength 500 MG tabletIndication s:Arthropathy Take 1 tablet (500 mg) by mouth every 6 (six) hours if needed (pain). 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 Patient is poor historian complaining of chest pain radiating to the left arm I decided to prescribe aspirin 325 mg and refer her to the emergency room for further workup Prediabetes 11/25/2024 Primary hypertension 02/17/2024 Acute right ankle pain [...] Encounters Date Type Department Care Team Description 03/11/2025 3:20 PM EDT Office Visit [facility] [address] [address] Otilia Hallman MD Other chest pain (Primary Dx) 03/11/2025 Travel 03/11/2025 Telephone [facility] [address] [place] [address] Anyi Keys MD Nurse Triage 02/22/2025 Orders Only [facility] [address] [place], [place] [phone] Anyi Keys MD 12/30/2024 Orders Only GENERIC EXTERNAL DATA DEPARTMENT Provider, Generic External Data from Last 3 Months Immunizations Immunization Administration Dates Next Due Influenza Injectable Quadriv alant Preservative Free IIV4 MDCK 03/28/2022,04/04/2020 Influenza injectable quadriv alent IIV4 with preservative 05/12/2019,04/08/2017,04/19/2015 Influenza injectable quadriv alent preservative free 04/13/2021,07/17/2018 Influenza, IIV3, injectable 04/11/2023, 0,04/25/2014 Influenza, Split (incl. maryellen f[place] surface antigen) 04/17/2012 Influenza, seasonal, injecta ble, preservative free 05/18/2024 Moderna Covid-19 Vaccine 12+ 05/15/2023,09/07/19 21,08/10/2020 Tdap [...] EDT Inhaled Oxygen Concentration - - Weight 61.2 kg (135 lb) 11/25/2024 10:23 AM EDT Height 146.1 cm (4' 9.5 ) 11/25/2024 10:23 AM ED T Body Mass Index 28.71 11/25/2024 10:23 AM EDT Plan of Treatment Health Maintenance Due Date Last Done Comments [...] 2024 05/15/2023, 11/09/2021, 09/07/2020, Additional history exists Influenza Vaccine (#1) 2025 , 04/11/2023, 03/28/2022, Additional history exists Depression Screening 08/17/2025 08/17/2024, 08/17/19 25 Disability Screening 11/25/2025 11/25/2024 SDOH Screening 11/25/2025 11/25/2024 Tobacco Screening 11/25/2025 11/25/2024 Diabetes: Hemoglobin A1C 12/18/2025 025, 02/17/2024, 10/25/2022, Additional history exists Cervical Cancer Screening 01/25/2027 HPV/Cotest 01/25/2027 01/26/2024, 08/17/2019 Pap Smear 01/25/2027 01/26/2024 Mammogram 02/22/2027 02/22/2025, 01/12, 02/09/2024, Additional history exists DTaP/Tdap/Td Vaccines (2 - Td or Tdap) 08/25/2027 08/25/2017 Lipid Panel 12/18/2029 12/18/2024, 07/0 08/2023, 11/07/2021, Additional history exists RSV Patients and Patients Aged 60 years or older (1 - 1-dose 75+ series) 2040 Hepatitis C Screening Completed 01/13/2024 HIB Vaccines Aged Out No longer eligi [...] patient's age to complete this topic Meningococcal B Vaccine Aged Out No l onger eligible based on patient's age to complete [...] Name Priority Date/Time Associated Diagnosis Comments BI MAMMOGRAM SCREENING TOMOSYNTHESIS BILATERAL Routine 02/22/2025 8:15 AM EDT CYTOPATH-CELL ENHANCED Routine 5:46 PM EDT HEMOGLOBIN A1C Routine 12/18/2024 8:44 AM EDT Prediabetes HEPATIC FUNCTION PANEL Routine 8:44 AM EDT Prediabetes LIPID PANEL, STANDARD Routine 12/18/2024 8:44 AM EDT Prediabetes BASIC METABOLIC PANEL Routine 12/18/2024 8:44 AM EDT Prediabetes THINPREP IMAGING PAP AND HPV MRNA E6/E7 Routine 01/26/2024 11:19 AM EDT HEPATITIS C AB W/REFL TO HCV RNA, QN, PCR Routine 01/13/2024 8:45 AM EDT Annual physical exam HM COLONOSCOPY Routine 07/11/2017 from Last 3 Months or Most Recently Relevant to Health Maintenance Results * BI Mammogram Screening Tomosynthesis Bilateral (02/22/2025 8:15 AM EDT) Anatomical Region Laterality Modality Breast Bilateral Mammography 02/22/2025 8:15 AM EDT Narrative 02/28/2025 2:31 PM EDT [facility] [address] [place] [address] Mammography Report Signed Patient: Rebecca Crespo MR#: [id number] : 1965 Acct:[id number] Age/Sex: 59 / F ADM Date: 02/22/25 Loc: HO.MAMMO Attending Dr: Anyi Keys MD Ordering Physician: Anyi Keys MD Results: 1Negati ve Date of Service: 02/22/25 Follow Up: 1 Year From Orig ina Mammogram Procedure(s): MM tomosynthesis screening BI Accession Number(s): [id number] cc: Anyi Keys MD EXAMINATION: MM SCREENING DIGITAL BREAST TOMOSYNTHESIS, BILATERAL CLINICAL INFORMATION: Screening. Asymptomatic. COMPARISON: Comparison made to multiple prior, most recent February 09, 2024, and most remote April 13, 2019. TECHNIQUE: Digital breast tomosynthesis is performed in both the craniocaudal and mediolateral oblique views along with computer-aided detection (CAD). Best possible images according to technologist's notes. FINDINGS: BREAST COMPOSITION: There are scattered areas of fibroglandular density (ACR BI-RADS breast composition Category b). BILATERAL BREASTS: No significant masses, suspicious calcifications or other abnormalities are seen in either breast. MM/MM tomosynthesis screening BI IMPRESSION: BILATERAL BREASTS: Negative, no mammographic evidence of malignancy. Normal interval follow-up is recommended in 12 months. ASSESSMENT: BI-RADS 1 - Negative RECOMMENDATION: Routine annual mammography screening. FOLLOW-UP: 1 year F/U This examination should not preclude the clinical evaluation of a suspicious palpable abnormality. This patient's information was entered into a reminder system with a target due date for their next mammogram. Electronically signed by: Maco Watts MD 02/28/2025 02:28 PM EDT RP Dictated By: Maco Watts MD Signed By: <Electronically signed by Maco Watts MD in OV> 02/28/25 1428 DD/ 0815 TD/TT: 02/22/25 0852 International Organizer: Procedure Note Donotuseinterpreter, Image - 02/28/2025 [facility] [address] [place] [address] Mammography Report Signed Patient: Rebecca Crespo#: M [id number] : 1965Acct:[id number] Age/Sex: 59 / FADM Date: 02/22/25 Loc: HO.MAMMO Attending Dr: Anyi Keys MD Ordering Physician: Anyi Keys MDResults: 1Negati ve Date of Service: 02/22/25Follow Up: 1 Year From Orig inal Mammogram Procedure(s): MM tomosynthesis screening BI Accession Number(s): [id number] cc: Anyi Keys MD EXAMINATION: MM SCREENING DIGITAL BREAST TOMOSYNTHESIS, BILATERAL CLINICAL INFORMATION: Screening. Asymptomatic. COMPARISON: Comparison made to multiple prior, most recent February 09, 2024, and most remote April 13, 2019. TECHNIQUE: Digital breast tomosynthesis is performed in both the craniocaudal and mediolateral oblique views along with computer-aided detection (CAD). Best possible images according to technologist's notes. FINDINGS: BREAST COMPOSITION: There are scattered areas of fibroglandular density (ACR BI-RADS breast composition Category b). BILATERAL BREASTS: No significant masses, suspicious calcifications or other abnormalities are seen in either breast. MM/MM tomosynthesis screening BI IMPRESSION: BILATERAL BREASTS: Negative, no mammographic evidence of malignancy. Normal interval follow-up is recommended in 12 months. ASSESSMENT: BI-RADS 1 - Negative RECOMMENDATION: Routine annual mammography screening. FOLLOW-UP: 1 year F/U This examination should not preclude the clinical evaluation of a suspicious palpable abnormality. This patient's information was entered into a reminder system with a target due date for their next mammogram. Electronically signed by: Maco Watts MD 02/28/2025 02:28 PM EDT Dictated By: Maco Watts MD Signed By: <Electronically signed by Maco Watts MD in OV> 02/28/25 1428 DD/ 0815 TD/TT: 02/22/25 0852 International Organizer: Anyi Keys MD IMG BI PROCEDURES Final Result * Cytopath-cell enhanced (12/30/2024 5:46 PM EDT) 12/30/2024 5:46 PM EDT 12/31/2024 9:30 AM EDT [facility] - 01/01/2025 5:29 PM EDT ----- ------- Name: Rebecca Crespo Age/Sex: 59/F : 1965 Unit#: [id number] Attend Dr: Lizabeth Flores [facility] Re12/30/24 Status: DEP REF Location: [facility] Disch: ----- ------- SPEC : [id number] RECD: 12/31/24 STATUS: SAKINA MALAVE NUM: [id number] MAXIMINO: 12/30/24-[address] [facility] [address]: Lizabeth Flores [facility] ENTERED: 12/31/24-1020 SP TYPE: Cytology OTHR DR: Anyi Keys MD ORDERED: Cyto-enhanced Diagnosis Urine: Rare atypical urothelial cells. Comment: Examination of a monolayer preparation slide shows many benign urothelial cells, scattered benign squamous cells, and a rare cluster of atypical urothelial cells with increased nuclear:cytoplasmic ratios. There are also scattered inflammatory cells and few red blood cells. Clinical History Enuresis Material Received Urine Gross Description Received is 23 cc of clear yellow fluid from which a ThinPrep slide is prepared. IHC S/NG Disclaimer NOTE: Unless otherwise stated, all tissue is formalin-fixed and paraffin-embedded. Some or all of the immunohistochemical tests reported herein may have been developed and their performance characteristics determined by [facility]. They have not been cleared or approved by the U.S. Food and Drug Administration (FDA). However, the FDA has determined that such clearance or approval is not necessary. This laboratory is certified under the Clinical Laboratory Improvement Amendments of 1988 (CLIA) as qualified to perform high complexity clinical laboratory testing. Copies To: Lizabeth Flores [facility] [address] [place] [address] [address] [place] [address] [email or web address] Anyi Keys MD [address] [place] [address] CONTINUED ON NEXT PAGE ----- ------- Name: Rebecca Crespo Age/Sex: 59/F : 1965 Unit#: [id number] Attend Dr: Lizabeth Flores [facility] Re12/30/24 Status: JAD REF Location: HO.LNP Disch: ----- ------- SPEC : [id number] RECD: 12/31/24 STATUS: SAKINA MALAVE NUM: [id number] MAXIMINO: 12/30/24-[address] [facility] [address]: Lizabeth Flores [facility] ENTERED: 12/31/24-102 SP TYPE: Cytology OTHR DR: Anyi Keys MD ORDERED: Cyto-enhanced ----- ------- Signed (signature on file) Amygardenia Dwyer 01/01/25 9501 ----- ------- END OF REPORT Generic External Data Provider LAB CYTOLOGY ORDParul TRAVIS Final Result Performing Organization Address [facility] Co de Phone Number [facility] [address] [place] [phone] * Hemoglobin A1c (12/18/2024 8:44 AM EDT) Hemoglobin A1c 5.9 <6.0 % [facility] Comment:Hemoglobin A1C Refer ence Range Adults: 4.8 - 6.0 % Non diabetic: < 6.0 % Goal: < 7.0 %Additional Action Suggested: > 8.0 %Note: Hemoglobin A1c results are invalid for patients with abnormal amounts of HbF. Blood transfusions may impact the HbA1c concentration in the patient sample. Estimated Average Glucose 123 mg/dL [facility] Comment:eAG = Estimated ave rage glucose which is %A1C expressed asaverage glucose, using the formula of the T0P-FzuouieFeihvol Glucose study (ADAG), Diabetes Care, Vol.31,#8,2007 Blood Venous blood specimen / Unknown 12/18/2024 8:44 AM EDT 12/18/2024 8:44 AM EDT Anyi Keys MD LAB BLOOD ORDERABLES Final Resul t Performing Organization Address [facility] Co de Phone Number [facility] [address] [place], [place] [phone] * Hepatic Function Panel (12/18/2024 8:44 AM EDT) Bilirubin, Total 0.2 0.0 - 1.0 mg/dL [facility] Bilirubin, Direct <0.2 0.0 - 0.5 mg/dL [facility] Aspartate Amino Transferase 22 5 - 31 U/L [facility] Alanine Aminotransferase 21 0 - 31 U/L [facility] Total Protein 7.3 6.5 - 8.0 g/dL [facility] Albumin Level 4.1 3.5 - 5.0 g/dL [facility] Alkaline Phosphatase 74 39 - 117 U/L [facility] Blood Venous blood specimen / Unknown 12/18/2024 8:44 AM EDT 12/18/2024 8:44 AM EDT us Anyi Keys MD LAB BLOOD ORDERABLES Final Resul t [facility] [address] [place] [phone] * (ABNORMAL) Lipid Panel, Standard (12/18/2024 8:44 AM EDT) Triglycerides 206(H) <150 mg/dL [facility] Comment:Desirable Triglyceri de: less than 150 mg/dLBorderline High Triglyceride 150-199 mg/dLHigh Triglyceride: 200-499 mg/dLVery High Triglyceride: greater than or equal to 5OO mg/dL Cholesterol 191 <200 mg/dL [facility] Comment:Desirable Cholestero l: less than 200 mg/dLBorderline High Cholesterol: 200-239 mg/dLHigh Cholesterol: greater than 239 mg/dL LDL Cholesterol Calculated 115(H) <100 mg/dL [facility] Comment:Desirable LDL: less than 100 mg/dLNear Optimal/Above Optimal LDL: 110- 129 mg/dLBorderline High LDL: 130-159 mg/dLHigh LDL: 160-189 mg/dLVery High LDL: greater than or equal to 190 mg/dL HDL Cholesterol 35(L) >40 mg/dL [facility] Comment:Desirable HDL: great er than 40 mg/dL Note: This HDL assay may give artificially low results in patients with liver disease. Blood Venous blood specimen / Unknown 12/18/2024 8:44 AM EDT 12/18/2024 8:44 AM EDT us Anyi Keys MD LAB BLOOD ORDERABLES Final Resul t Performing Organization Address [facility] Co de Phone Number [facility] [address] [place] [phone] * (ABNORMAL) Basic Metabolic Panel (12/18/2024 8:44 AM EDT) Pathologist [facility] Sodium 140 135 - 145 mmol/L [facility] Potassium 5.0 3.3 - 5.1 mmol/L [facility] Chloride 103 96 - 108 mmol/L [facility] Carbon Dioxide 31(H) 22 - 29 mmol/L [facility] Anion Gap 11(L) 12 - 20 [facility] Urea Nitrogen (BUN) 16 9 - 16 mg/dL [facility] Creatinine, Serum 0.67 0.5 - 1.4 mg/dL [facility] Estimated Glomerular Filt Rate >60 [facility] Comment:Chronic Kidney Disea se: Estimated GFR < 60 mL/min/1.29w9Nbwslu Kidney Disease: Estimated GFR < 15 mL/min/1.73m2 Glucose 94 60 - 115 mg/dL [facility] Calcium 10.1 8.4 - 10.2 mg/dL [facility] Blood Venous blood specimen / Unknown 12/18/2024 8:44 AM EDT 12/18/2024 8:44 AM EDT us Anyi Keys MD LAB BLOOD ORDERABLES Final Resul t Performing Organization Address [facility]/ZIP Co de Phone Number [facility] [address] [place] [address] [phone] * (ABNORMAL) ThinPrep Imaging Pap and HPV mRNA E6/E7 (01/26/2024 11:19 AM EDT) HPV nRNA E6/E7 Not Detected Not Detected [facility] Comment:Methodology: Transcr iption-Mediated AmplificationThis assay detects E6/E7 viral messenger RNA (mRNA) from 14high-risk HPV types (16,18,31,33,35,39,45,51,52,56,58,59,66,68).Cervical sources are required for HPV testing.If a vaginal source from a patient who has had atotal hysterectomy with removal of cervix wassubmitted, please contact the testing laboratoryfor alternative testing options.For additional information, please refer [email or web address].Drync/faq/IGD470o4(This link if provided for information/educational purposes only.)THIS TEST WAS PERFORMED AT:[facility],BIOTE[facility]-[address] [place] [phone] KEARNS MD SOURCE: SEE NOTE [facility] Comment:Cervix Report Status: [facility] Clinical Information: SEE NOTE [facility] Comment:Routine exam LMP: SEE NOTE [facility] Comment:NONE GIVEN Prev. PAP: SEE NOTE [facility] Comment:2020 Prev. BX: SEE NOTE [facility] Comment:NONE GIVEN Statement Of Adequacy: SEE NOTE [facility] Comment:Satisfactory for grace luation.Endocervical/transformation zone componentpresent. General Categorization: SEE NOTE(A) [facility] Comment:Cytology Results: Ep ithelial Cell Abnormality Interpretation/Result: SEE NOTE(A) [facility] Comment:Atypical Squamous Ce lls of UndeterminedSignificance (ASC-US) Cytology Comment SEE NOTE [facility] Comment:This Pap test has be en evaluated with computerassisted technology. Manager Oncology: SEE NOTE [facility] Comment:YP, CT(ASCP)CT rach dominique location: [place] [address] Review Manager Oncology: [facility] Pathologist SEE NOTE [facility] Comment:Neha Estrada M.D., Ph.D.,Board Certified in Anatomic Pathology andCytopathology(electronic signature)Consulting Pathologist[address] [phone] PAP Infection [facility] See Note SEE [facility] Comment:EXPLANATORY NOTE:The Pap is a [...] AM EDT 01/27/2024 8:14 AM EDT Narrative [facility] - 02/03/2024 6:50 PM EDT SEE SCANNED RESULTS IN [id number] Swathi Lombardi CNM LAB PATHOLOGY ORDERABLES Final Result Performing Organization Address [facility] Co de Phone Number [facility] [address] [place] [phone] * Hepatitis C Antibody with Reflex to HCV, RNA, Quantitative, Real-Time PCR (01/13/2024 8:45 AM EDT) Hepatitis C Antibody Nonreactive Nonreactive [facility] Comment:Antibodies to HCV no t detected; does not exclude early acuteHCV infection. Blood Venous blood specimen / Unknown 01/13/2024 8:45 AM EDT 01/13/2024 2:20 PM EDT us Anyi Keys MD LAB BLOOD ORDERABLES Final Resul t Performing Organization Address [facility] Co de Phone Number [facility] [address] [place] [phone] * Hm Colonoscopy (07/11/2017) Colonoscopy Normal Normal Wong Provider HEALTH MAINTENANCE Final Result from Last 3 Months or Most Recently Relevant to Health Maintenance Insurance [facility] C3 Advance Directives Documents on File Type Date Recorded 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
--- OUTSIDE RECORDS SUMMARY | 2025-03-11 16:15 | XMS_ITS | Encounter Summary ---
Author Organization [employer] Address [address] [place] [address] [address] [place] [address] Care Team Providers Care Clinical Program Director Name Role Phone Anyi Keys MD Primary Care Provider Reason for Visit * Reason Onset Date Comments Nurse Triage 03/11/2025 Encounter Details Date Type Department Care Team ([facility] Contact Info) Description 03/11/2025 Telephone [facility] [address] [place] [address] Anyi Keys MD [address] [place] [address] Nurse Triage Social History Tobacco Use Types [...] encounter Miscellaneous Notes * Telephone Encounter - Elena Irizarry RN - 03/11/2025 9:18 AM EDT Call returned to Rebecca Felipe to triage below at [phone]. Spoke with Demi manager interventional. Reports pt left arm pain from the shoulder down x 1 day. NO injury to cause pain. No swelling, redness, rash or bruising. Pain with ROM. Pt does sleep on that side. Denies any reports of CP. beauty shop manager made aware of disposition, agrees to seek [facility] for exam as no sick on site availability on teams at time of call. Reviewed [facility] operating hours and that wait times vary. Reviewed home care advise, ER precautions and reasons to call back. Protocol Used: Arm Pain (Adult) Protocol-Based Disposition: See in Office or Video Visit Today or Tomorrow Video visit offer not recorded Positive Triage Question: * Patient wants to be seen * All higher-acuity triage questions were negative Care Advice Discussed: * Pain Medicines * Reasons To Call Back - Severe pain lasts over 2 hours after pain medicine - Arm swelling occurs - You become worse * Telephone Encounter - Sunil Mena - 03/11/2025 9:15 AM EDT Symptom: Arm Pain - Not From Injury Outcome: Transfer to a nurse or provider NOW! Reason: Chest pain now The caller accepted this outcome. Contact pt at [phone] documented in this encounter Plan of Treatment Not on file documented as of this encounter Visit Diagnoses Not on filedocumented in this encounter Additional Health Concerns Assessment Noted Time PHQ-9 Depression Total Score: 0 08/17/19 25 9:08 AM EST documented as of this encounter Care Teams Clinical Program Director Relationship Specialty Start Date End Date Anyi Keys MD [address] [place] [phone] PCP - General Family Medicine 06/29/12 documented as of this encounter
--- OUTSIDE RECORDS SUMMARY | 2025-03-11 16:15 | XMS_ITS | Encounter Summary ---
Author Organization [employer] Address [address] [facility] 7t [place] [address] Care Team Providers Care Government Affairs Fellow Name Role Phone Anyi Keys MD Primary Care Provider [phone] Reason for Visit * Reason Comments Med Refill Encounter Details Date Type Department Care Team ([facility] st Contact Info) Description 07/24/2024 Refill [facility] MEDICINE [address] [place] [address] Anyi Keys MD [address] [place] [address] Hypercholesteremia Social History Tobacco Use Types Packs/Day [...] hypercholesterolemia documented in this encounter Care Teams Government Affairs Fellow Relationship Specialty Start Date End Date Anyi Keys MD [address] [place] [address] PCP - General Family Medicine 06/29/12 documented as of this encounter
--- OUTSIDE RECORDS SUMMARY | 2025-03-11 16:15 | XMS_ITS | Encounter Summary ---
Author Organization [employer] Address [address] [place] [address] 7 [place] [address] Care Team Providers Care Health Concierge Name Role Phone Anyi Keys MD Primary Care Provider [phone] Encounter Details Date Type Department Care Team ([facility] Contact Info) Description 12/18/2022 Orders Only [facility] CHC MED & PEDS [address] [place] [address] Donavan Dalton MD [address] [place] [address] Encounter for hearing examination, unspecified whether abnormal [...] not to disclose 2021 10:18 AM EDT COVID-19 Exposure Response Date Recorded In the last 10 days, have yo u been in contact with someone who was confirmed or suspected to have Coronavirus/COVID-19? No / Unsure 12/11/2022 4:40 PM EDT documented as of this encounter Plan of Treatment Not on file documented as of this encounter Visit Diagnoses Diagnosis Encounter for hearing examination, unspecified whether abnormal findings- Primary documented in this encounter Care Teams Health Concierge Relationship Specialty Start Date End Date Anyi Keys MD [address] [place] [address] PCP - General Family Medicine 06/29/12 documented as of this encounter
--- OUTSIDE RECORDS SUMMARY | 2025-03-11 16:15 | XMS_ITS | Encounter Summary ---
Author Organization [employer] Address [address] 7[address] [place] [address] Care Team Providers Care Supervisor Concrete Pipe Plant Name Role Phone Anyi Keys MD Primary Care Provider [phone] Encounter Details Date Type Department Care Team (Latest Contact Info) Description 03/11/2025 Travel Social History Tobacco Use Types Packs/Day [...] documented as of this encounter Care Teams Supervisor Concrete Pipe Plant Relationship Specialty Start Date End Date Anyi Keys MD [address] [place] [address] PCP - General Family Medicine 06/29/12 documented as of this encounter
--- OUTSIDE RECORDS SUMMARY | 2025-03-11 16:15 | XMS_ITS | Encounter Summary ---
Author Organization [employer] Address [address] [place] [address] 7 [place] [address] Care Team Providers Care Ware Dresser Name Role Phone Anyi Keys MD Primary Care Provider [phone] Reason for Visit * Reason Onset Date Comments Med Refill 10/28/2024 Encounter Details Date Type Department Care Team ([facility] st Contact Info) Description 10/28/2024 Refill [facility] MED & PEDS [address] [place] [address] Anyi Keys MD [address] [place] [address] Sore throat Social History Tobacco Use Types Packs/Day Years [...] as of this encounter Visit Diagnoses Diagnosis Sore throat Acute pharyngitis documented in this encounter Additional Health Concerns Assessment Noted Time PHQ-9 Depression Total Score: 0 08/17/19 25 9:08 AM EST documented as of this encounter Care Teams Ware Dresser Relationship Specialty Start Date End Date Anyi Keys MD [address] [place] [address] PCP - General Family Medicine 06/29/12 documented as of this encounter
--- OUTSIDE RECORDS SUMMARY | 2025-03-11 16:15 | XMS_ITS | Encounter Summary ---
Author Organization [employer] Address [address] [place] [address] 7 [place] [address] Care Team Providers Care Mottler Machine Feeder Name Role Phone Anyi Keys MD Primary Care Provider [phone] Reason for Visit * Reason Onset Date Comments Med Refill 11/10/2024 Encounter Details Date Type Department Care Team ([facility] st Contact Info) Description 11/10/2024 Refill [facility] MED & PEDS [address] [place] [address] Anyi Keys MD 505 [place] [address] Developmental delay Social History Tobacco Use Types [...] documented as of this encounter Care Teams Mottler Machine Feeder Relationship Specialty Start Date End Date Anyi Keys MD [address] [place] [address] PCP - General Family Medicine 06/29/12 documented as of this encounter
[2025-03-11 17:37] LABS: Appearance Urine Hazy; Glucose Urine UA Negative (Negative); PH 8.5 (5.0-9.0); Specific Gravity - Urine 1.020 (1.005-1.025); UMIC TRIGGER UACC YES
[2025-03-11 17:46] LABS: UACC Culture Trigger YES
[2025-03-11 17:57] LABS: Troponin-I High Sensitivity < 2.7 ng/L (<3.5-17.0)
[2025-03-11 18:18] VITALS: BP 134/77; PULSE 96; RESP 18; TEMP 37.2; O2SAT 98
[2025-03-11 18:34] VITALS: BP 134/77; PULSE 96; RESP 18; TEMP 37.2
== END 2025-03-11 18:44 | disposition home or self-care (01) ==
PROVIDERS: Emergency Provider Emergency Medicine
DX: R07.9 Chest pain, unspecified (principal); K21.9 Gastro-esophageal reflux disease without esophagitis
CPT/HCPCS: 36415; 81001; 84484; 87086; 93005; 99283; 99284

== ENCOUNTER → 2025-03-11 15:59 | Outpatient (BNV) | payer MEDICAID, SELFPAY | PROVIDERS: Emergency Provider Emergency Medicine; Visit Provider Internal Medicine | DX: R07.89 Other chest pain (principal) | CPT/HCPCS: 93010 ==

== ENCOUNTER 2025-03-26 09:13 | Outpatient (REF) | payer MEDICAID, SELFPAY ==
--- OUTSIDE RECORDS SUMMARY | 2025-03-26 09:15 | XMS_ITS | Encounter Summary ---
Author Organization [employer] Address [address] [place] [address] 7 [place] [address] Care Team Providers Care Philosophy Lecturer Name Role Phone Anyi Keys MD Primary Care Provider [phone] Encounter Details Date Type Department Care Team ([facility] Contact Info) Description 12/18/2022 Orders Only [facility] CHC MED & PEDS [address] [place] [address] Donavan Dalton MD [address] [place] [address] Encounter for hearing examination, unspecified whether abnormal [...] Primary documented in this encounter Care Teams Philosophy Lecturer Relationship Specialty Start Date End Date Anyi Keys MD [address] [place] [address] PCP - General Family Medicine 06/29/12 documented as of this encounter
--- OUTSIDE RECORDS SUMMARY | 2025-03-26 09:15 | XMS_ITS | Encounter Summary ---
Author Organization [employer] Address [address] [place] [address] 7 [place] [address] Care Team Providers Care Stone Setter Metal Optical Frames Name Role Phone Anyi Keys MD Primary Care Provider [phone] Encounter Details Date Type Department Care Team ([facility] Contact Info) Description 02/13/2023 Orders Only [facility] CHC MED & PEDS [address] [place] [address] Donavan Dalton MD 505 [place] [address] Encounter for hearing examination, unspecified whether abnormal [...] PM EDT Narrative 03/06/2023 5:02 PM EDT [facility] [address] [place], [place] [address] Ultrasound Report Signed Patient: Rebecca Wang MR#: [id number] 5 : 1965 Acct:[id number] Age/Sex: 57 / F ADM Date: 03/06/23 Loc: HO.MAMMO Attending Dr: Ysabel Rollins NP Ordering Physician: YSABEL ROLLINS NP Date of Service: 03/06/23 Procedure(s): US breast LT limited mamm only Accession Number(s): [id number] cc: YSABEL ROLLINS NP EXAMINATION: MM DIAGNOSTIC [...] in OV> 03/06/23 1659 DD/ 1453 TD/TT: Thread Spinner: Procedure Note Donotuseinterpreter, Image - 03/06/2023 [facility] [address] [place], [place] [address] Ultrasound Report Signed Patient: Maddie Wang#: [id number] 5 : 1965Acct:[id number] Age/Sex: 57 / FADM Date: 03/06/23 Loc: HO.MAMMO Attending Dr: Ysabel Rollins NP Ordering Physician: YSABEL ROLLINS NP Date of Service: 03/06/23 Procedure(s): US breast LT limited mamm only Accession Number(s): [id number] cc: YSABEL ROLLINS NP EXAMINATION: MM DIAGNOSTIC [...] by Davi Serrano MD in OV> 03/06/23 0146 DD/ 5783 TD/TT: Thread Spinner: us Ysabel Rollins BODY FITTER IMG US PROCEDURES Final Result * BI Mammogram Diagnostic Tomosynthesis Bilateral (03/06/2023 2:25 PM EDT) Anatomical Region Laterality Modality Breast Bilateral Mammography 03/06/2023 2:25 PM EDT Narrative 03/06/2023 5:02 PM EDT [facility] [address] [place], [place] [address] Mammography Report Signed Patient: Rebecca Wang MR#: [id number] 5 : 1965 Acct:[id number] Age/Sex: 57 / F ADM Date: 03/06/23 Loc: HO.MAMMO Attending Dr: Ysabel Rollins NP Ordering Physician: YSABEL ROLLINS NP Results: 1Negati ve Date of Service: 03/06/23 Follow Up: 1 Year From Orig ina Mammogram Procedure(s): MM tomosynthesis diagnostic BI Accession Number(s): [id number] cc: YSABEL ROLLINS NP EXAMINATION: MM DIAGNOSTIC [...] in OV> 03/06/23 1659 DD/ 1425 TD/TT: Thread Spinner: Procedure Note Donotuseinterpreter, Image - 03/06/2023 [facility] [address] [place] [address] Mammography Report Signed Patient: Rebecca Wang#: [id number] 5 : 1965Acct:[id number] Age/Sex: 57 / FADM Date: 03/06/23 Loc: HO.MAMMO Attending Dr: Ysabel Rollins NP Ordering Physician: YSABEL ROLLINS NPResults: 1Negati ve Date of Service: 03/06/23Follow Up: 1 Year From Orig inal Mammogram Procedure(s): MM tomosynthesis diagnostic BI Accession Number(s): [id number] cc: YSABEL ROLLINS NP EXAMINATION: MM DIAGNOSTIC [...] in OV> 03/06/23 1659 DD/ 1425 TD/TT: Thread Spinner: us Ysabel Rollins BODY FITTER IMG BI PROCEDURES Final Result documented in this encounter Visit Diagnoses Diagnosis Encounter for hearing examination, unspecified whether abnormal findings- Primary documented in this encounter Care Teams Stone Setter Metal Optical Frames Relationship Specialty Start Date End Date Anyi Keys MD [address] [place] [address] PCP - General Family Medicine 06/29/12 documented as of this encounter
--- OUTSIDE RECORDS SUMMARY | 2025-03-26 09:15 | XMS_ITS | Encounter Summary ---
Author Organization [employer] Address [address] [place] [address] 7 [place] [address] Care Team Providers Care Narcotics Agent Name Role Phone Anyi Keys MD Primary Care Provider [phone] Encounter Details Date Type Department Care Team ([facility] Contact Info) Description 07/01/2022 Telephone [facility] CHC MED & PEDS [address] [place], [place] [id number] Anyi Keys MD [address] [place] [address] Social History Tobacco Use Types Packs/Day Years [...] on filedocumented in this encounter Care Teams Narcotics Agent Relationship Specialty Start Date End Date Anyi Keys MD [address] [place] [address] PCP - General Family Medicine 06/29/12 documented as of this encounter
--- OUTSIDE RECORDS SUMMARY | 2025-03-26 09:15 | XMS_ITS | Patient Health Record ---
Author Organization [facility] [facility] Address [address] [place] [address] Care Team Providers Care Security Vehicle Patrol Officer Name Role Phone DELANEY CLAYTON Primary Care Provider Khris Russ [phone] Allergies Allergen (clinical drug ingredient) Drug/Non Drug [...] one day for 2 days 12/09/2022 Active [place] 3 Active Immunizations Vaccine Route Administration Date [...] Problem Status W/U Status Risk Notes Problem 803491748 Encounter for screening for malignant neoplasm of colon (Z12.11) Active confirmed Problem 43228146 Weight loss (R63.4) Active confirmed Problem 154913339 Gastroesophageal reflux disease without esophagitis (K21.9) Active confirmed Problem 51766060 Constipation, unspecified constipation type (K59.00) Active confirmed Problem 619464364 Abnormal barium swallow (R93.3) Active confirmed Problem 57137999 Esophageal dysph agia (R13.10) Active confirmed Plan Of Treatment Future Test Test Name Order Date COLONOSCOPY 05/06/2017 UPPER GI ENDOSCOPY [place] DILATION OF ESOPH 11/01/2020 COLONOSCOPY 12/05/2022 Insurance Providers Payer Name Payer Address Payer Phone Subscriber Number Group Number Insured Name Patient Relationship to Insured Coverage Start Date Coverage End Date [facility] [address] [place] [phone] [id number] REY MANCIA Self - patient is the insured Medical (General) History Medical History History ICD Code Developmental delay disorder Mood disorder--depression, bipolar GERD Arthriis Denies NM,DM,CVA,Lung disease,renal dise ase hyperlipidemia depression allergies anxiety [...]
--- OUTSIDE RECORDS SUMMARY | 2025-03-26 09:15 | XMS_ITS | Encounter Summary ---
Author Organization [employer] Address [address] [place] [address] 7 [place] [address] Care Team Providers Care Electric Blasting Cap Assembler Name Role Phone Anyi Keys MD Primary Care Provider Reason for Visit * Reason Onset Date Comments Med Refill 11/10/2024 Encounter Details Date Type Department Care Team ([facility] st Contact Info) Description 11/10/2024 Refill [facility] MED & PEDS [address] [place] [address] Anyi Keys MD [address] [place] [address] Developmental delay Social History Tobacco Use Types [...] documented as of this encounter Care Teams Electric Blasting Cap Assembler Relationship Specialty Start Date End Date Anyi Keys MD [address] [place] [address] PCP - General Family Medicine 06/29/12 documented as of this encounter
--- OUTSIDE RECORDS SUMMARY | 2025-03-26 09:15 | XMS_ITS | Encounter Summary ---
Author Organization [employer] Address [address] [place] [address] 7 [place] [address] Care Team Providers Care Franchise Consultant Name Role Phone Anyi Keys MD Primary Care Provider [phone] Reason for Visit * Reason Onset Date Comments Med Refill 10/28/2024 Encounter Details Date Type Department Care Team ([facility] st Contact Info) Description 10/28/2024 Refill [facility] MED & PEDS [address] [place] [address] Anyi Keys MD [address] [place] [address] Sore throat Social History Tobacco Use Types [...] documented as of this encounter Care Teams Franchise Consultant Relationship Specialty Start Date End Date Anyi Keys MD [address] [place] [address] PCP - General Family Medicine 06/29/12 documented as of this encounter
--- OUTSIDE RECORDS SUMMARY | 2025-03-26 09:16 | XMS_ITS | Clinical Summary ---
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 Patient is poor historian complaining of chest [...] Description 03/11/2025 3:20 PM EDT Office Visit [facility] [address] [address] Otilia Hallman MD Other chest pain (Primary Dx) 03/11/2025 Travel 03/11/2025 Telephone [facility] [address] [place] [address] Anyi Keys MD Nurse Triage 02/22/2025 Orders Only [facility] [address] [place], [place] [phone] Anyi Keys MD 12/30/2024 Orders Only GENERIC [...] Cancer Screening 07/11/2022 COVID-19 Vaccine ( season) 2025 05/15/2023, 11/09/2021, 09/07/2020, Additional history exists Influenza [...] A1C Routine 12/18/2024 8:44 AM EDT Prediabetes LIPID PANEL, STANDARD Routine 12/18/2024 8:44 AM EDT Prediabetes THINPREP [...] AM EDT Narrative 02/28/2025 2:31 PM EDT [facility]'s [address] [place] [address] Mammography Report Signed Patient: Rebecca Crespo MR#: [id number] : 1965 Acct:[id number] Age/Sex: 59 / F ADM Date: 02/22/25 Loc: HO.MAMMO Attending Dr: Anyi Keys MD Ordering Physician: Anyi Keys MD Results: 1Negati ve Date of Service: 02/22/25 Follow Up: 1 Year From [facility] Mammogram Procedure(s): MM tomosynthesis screening BI Accession Number(s): [id number] cc: Anyi Keys MD EXAMINATION: MM SCREENING [...] 02/28/25 1428 DD/ 0815 TD/TT: 02/22/25 0852 Political Consultant: Procedure Note Donotuseinterpreter, Image - 02/28/2025 [facility]'s [address] [place] [address] Mammography Report Signed Patient: Rebecca Crespo#: M [id number] : 1965Acct:[id number] Age/Sex: 59 / FADM Date: 02/22/25 Loc: HO.MAMMO Attending Dr: Anyi Keys MD Ordering Physician: Anyi Keys MDResults: 1Negati ve Date of Service: 02/22/25Follow Up: 1 Year From [facility] M[facility] Procedure(s): MM tomosynthesis screening BI Accession Number(s): [id number] cc: Anyi Keys MD EXAMINATION: MM SCREENING [...] 02/28/25 1428 DD/ 0815 TD/TT: 02/22/25 0852 Political Consultant: Anyi Keys MD IMG BI PROCEDURES Final Result * Cytopath-cell enhanced (12/30/2024 5:46 PM EDT) 12/30/2024 5:46 PM EDT 12/31/2024 9:30 AM EDT [facility]S - 01/01/2025 5:29 PM EDT ----- ------- Name: Rebecca Crespo Age/Sex: 59/F : 1965 Unit#: [id number] Attend Dr: Lizabeth Flores SENIOR MAINFRAME PROGRAMMER ANALYST-BC Re12/30/24 Status: DEP REF Location: EduardoLNP Disch: ----- ------- SPEC : [id number] RECD: 12/31/24 STATUS: SAKINA MALAVE NUM: [id number] MAXIMINO: 12/30/24-[address] [facility] [address]: Lizabeth FloresPYulisa ENTERED: 12/31/24 SP TYPE: Cytology OTHR DR: Anyi Keys [...] developed and their performance characteristics determined by [facility]. They have not been cleared or approved by the U.S. Food and Drug Administration (FDA). However, the FDA has determined that such clearance or approval is not necessary. This laboratory is certified under the Clinical Laboratory Improvement Amendments of 1988 (CLIA) as qualified to perform high complexity clinical laboratory testing. Copies To: [facility] [address] [place] [address] DrEduardo [phone] [email or web address] Anyi Keys MD [address] [address] CONTINUED ON NEXT PAGE ----- ------- Name: Rebecca Crespo Age/Sex: 59/F : 1965 Unit#: [id number] Attend Dr: Lizabeth Flores [facility] Re12/30/24 Status: DEP REF Location: HO.LNP Disch: ----- ------- SPEC : [id number] RECD: 12/31/24 STATUS: SAKINA MALAVE NUM: [id number] MAXIMINO: 12/30/24-[address] [facility] [address]: Lizabeth Flores [facility] ENTERED: 12/31/24-1020 SP TYPE: Cytology OTHR DR: Anyi Keys MD ORDERED: Cyto-enhanced ----- ------- Signed (signature on file) Amy Dwyer 01/01/25 1729 ----- ------- END OF REPORT us Generic External Data Provider LAB CYTOLOGY ORDParul TRAVIS Final Result Performing Organization Address [facility] Co de Phone Number [facility] [address] [place] [address] [phone] * Hemoglobin A1c (12/18/2024 8:44 AM EDT) Hemoglobin A1c 5.9 <6.0 % [facility] Comment:Hemoglobin A1C Refer ence Range Adults: 4.8 - 6.0 % Non diabetic: < 6.0 % Goal: < 7.0 %Additional Action Suggested: > 8.0 %Note: Hemoglobin A1c results are invalid for patients with abnormal amounts of HbF. Blood transfusions may impact the HbA1c concentration in the patient sample. Estimated Average Glucose 123 mg/dL [facility] Comment:eAG = Estimated ave rage glucose which is %A1C expressed asaverage glucose, using the formula of the O5P-SqdyvjpNduhaww Glucose study (ADAG), Diabetes Care, Vol.31,#8,Feb. 2007 Blood Venous blood specimen / Unknown 12/18/2024 8:44 AM EDT 12/18/2024 8:44 AM EDT us Anyi Keys MD LAB BLOOD ORDERABLES Final Resul t Performing Organization Address [facility] Co de Phone Number [facility] [address] [place] [address] [phone] * (ABNORMAL) Lipid Panel, Standard (12/18/2024 8:44 AM EDT) Triglycerides 206(H) <150 mg/dL [facility] Comment:Desirable Triglyceri de: less than 150 mg/dLBorderline High Triglyceride 150-199 mg/dLHigh Triglyceride: 200-499 mg/dLVery High Triglyceride: greater than or equal to 5OO mg/dL Cholesterol 191 <200 mg/dL [facility] Comment:Desirable Cholestero l: less than 200 mg/dLBorderline High Cholesterol: 200-239 mg/dLHigh Cholesterol: greater than 239 mg/dL LDL Cholesterol Calculated 115(H) <100 mg/dL [facility] Comment:Desirable LDL: less than 100 mg/dLNear Optimal/Above Optimal LDL: 110- 129 mg/dLBorderline High LDL: 130-159 mg/dLHigh LDL: 160-189 mg/dLVery High LDL: greater than or equal to 190 mg/dL HDL Cholesterol 35(L) >40 mg/dL [facility] Comment:Desirable HDL: great er than 40 mg/dL Note: This HDL assay may give artificially low results in patients with liver disease. Blood Venous blood specimen / Unknown 12/18/2024 8:44 AM EDT 12/18/2024 8:44 AM EDT us Anyi Keys MD LAB BLOOD ORDERABLES Final Resul t [facility] [address] [place] [phone] * (ABNORMAL) ThinPrep Imaging Pap and HPV mRNA E6/E7 (01/26/2024 11:19 AM EDT) HPV nRNA E6/E7 Not Detected Not Detected [facility] Comment:Methodology: Transcr iption-Mediated AmplificationThis assay detects E6/E7 viral messenger RNA (mRNA) from 14high-risk HPV types (16,18,31,33,35,39,45,51,52,56,58,59,66,68).Cervical sources are required for HPV testing.If a vaginal source from a patient who has had atotal hysterectomy with removal of cervix wassubmitted, please contact the testing laboratoryfor alternative testing options.For additional information, please refer [email or web address](This link if provided for information/educational purposes only.)THIS TEST WAS PERFORMED AT:[facility]OTE[facility] ANATOMIC PATHOLOGY[address] [place] [address]GGWTXMALORIE KEARNS MD SOURCE: SEE NOTE [facility] Comment:Cervix Report Status: [facility] Clinical Information: SEE NOTE [facility] Comment:Routine exam LMP: SEE NOTE [facility] Comment:NONE GIVEN Prev. PAP: SEE NOTE [facility] Comment:2020 Prev. BX: SEE NOTE [facility] Comment:NONE GIVEN Statement Of Adequacy: SEE NOTE [facility] Comment:Satisfactory for grace luation.Endocervical/transformation zone componentpresent. General Categorization: SEE NOTE(A) [facility] Comment:Cytology Results: Ep ithelial Cell Abnormality Interpretation/Result: SEE NOTE(A) [facility] Comment:Atypical Squamous Ce lls of UndeterminedSignificance (ASC-US) Cytology Comment SEE NOTE [facility] Comment:This Pap test has be en evaluated with computerassisted technology. Ore Crushing Dust Collector: SEE NOTE [facility] Comment:YP, CT(ASCP)CT scree trip location: [place] [address] Review Ore Crushing Dust Collector: [facility] Pathologist SEE NOTE [facility] Comment:Neha Estrada M.D., Ph.D.,Board Certified in Anatomic Pathology andCytopathology(electronic signature)Consulting [address] [phone] PAP Infection [facility] See Note SEE NOTE [facility] Comment:EXPLANATORY NOTE:The Pap is a screening test for cervical cancer. It isnot a diagnostic test and is subject to false negativeand false positive results. It is most reliable when asatisfactory sample, regularly obtained, is submittedwith relevant clinical findings and history, and whenthe Pap result is evaluated along with historic andcurrent clinical information. 01/26/2024 11:1 9 AM EDT 01/27/2024 8:14 AM EDT Narrative [facility] - 02/03/2024 6:50 PM EDT SEE SCANNED RESULTS IN [id number] us Swathi Lombardi CNM LAB PATHOLOGY ORDERABLES Final Result Performing Organization Address City/State/[facility] Co de Phone Number [facility] [address] [place] [address] [phone] * Hepatitis C Antibody with Reflex to HCV, RNA, Quantitative, Real-Time PCR (01/13/2024 8:45 AM EDT) Hepatitis C Antibody Nonreactive Nonreactive [facility] Comment:Antibodies to HCV no t detected; does not exclude early acuteHCV infection. Blood Venous blood specimen / Unknown 01/13/2024 8:45 AM EDT 01/13/2024 2:20 PM EDT Anyi Keys MD LAB BLOOD ORDERABLES Final Resul t Performing Organization Address [facility] Co de Phone Number [facility] [address] [place] [address] [phone] * Colonoscopy (07/11/2017) Pathologist [facility] Colonoscopy Normal Normal Historical Provider HEALTH MAINTENANCE Final Result from Last 3 Months or Most Recently Relevant to Health Maintenance Insurance [facility] C3 Advance Directives Documents on File Type Date Recorded Patient Plug Cutting Machine Operator Expl anation Advance Directives and Livin g Will 11/25/2024 2:04 PM HCP Care Teams Research Tech Relationship Specialty Start Date End Date Anyi Keys MD [address] [place] [phone] PCP - General Family Medicine 06/29/12
--- OUTSIDE RECORDS SUMMARY | 2025-03-26 09:16 | XMS_ITS | Encounter Summary ---
Author Organization [employer] Address [address] [facility] [address] [place] [address] Care Team Providers Care Ski Patrol Director Name Role Phone Anyi Keys MD Primary Care Provider [phone] Reason for Visit * Reason Comments Med Refill Encounter Details Date Type Department Care Team ([facility] st Contact Info) Description 07/24/2024 Refill [facility] [address] [place] [address] Anyi Keys MD [address] [place] [address] Hypercholesteremia Social History Tobacco Use Types Packs/Day [...] hypercholesterolemia documented in this encounter Care Teams Ski Patrol Director Relationship Specialty Start Date End Date Anyi Keys MD [address] [place] [phone] PCP - General Family Medicine 06/29/12 documented as of this encounter
[2025-03-26 09:26] LABS: MANUAL DIFF FLAG NO
[2025-03-26 09:52] LABS: Hematocrit 37.9 % (37.0-47.0); Hemoglobin 12.1 g/dl (12.0-16.0); Imm Gran Abs Auto 0.03 X10*3/uL (0.00-0.03); Imm Gran Pct Auto 0.5 % (0.0-0.4); Lymphocytes Absolute Auto 2.2 X10*3/uL (1.2-4.9); Mean Corpuscular HGB Conc 31.9 g/dl (31.0-35.0); Mean Corpuscular Hemoglobin 29.7 pg (27.0-33.0); Mean Corpuscular Volume 92.9 fL (80.0-98.0); NRBC Abs Auto 0.000 X10*3/uL (0.0-0.012); NRBC Pct Auto 0.0 /100WBC (0.0-0.2); Platelet Count 302 X10*3/uL (160-400); Red Blood Count 4.08 X10*6/uL (4.20-5.50); White Blood Count 6.3 X10*3/uL (4.8-10.8)
[2025-03-26 10:01] LABS: Hemoglobin A1C 140.4595 umol/L; Total Hemoglobin (HGBA1C) 3199.1057 umol/L
[2025-03-26 10:30] LABS: Anion Gap 13 (12-20); Blood Urea Nitrogen 11 mg/dL (9-16); Calcium 9.7 mg/dL (8.4-10.2); Carbon Dioxide 31 mmol/L (22-29); Chloride 103 mmol/L (96-108); Estimated Glomerular Filt Rate > 60; Potassium 5.0 mmol/L (3.3-5.1); Sodium 142 mmol/L (135-145)
[2025-03-26 10:50] LABS: Thyroid Stimulating Hormone 2.99 uIU/mL (0.32-4.0)
== END 2025-03-26 09:14 | disposition home or self-care (01) ==
LOC: HO.LAB 09:13
PROVIDERS: PCP Student in an Organized Health Care Education/Training Program; Visit Provider Psychiatry & Neurology Psychiatry
DX: F20.9 Schizophrenia, unspecified (principal)
CPT/HCPCS: 36415; 80048; 80164; 83036; 84443; 85025

== ENCOUNTER 2025-06-30 07:51 | Outpatient (AMB) | payer MEDICAID, SELFPAY ==
--- NOTE | 2025-06-30 07:54 | A.OFFVIS_ITS ---
Intake Visit Reasons: 6M/labs/PVR/UA(SET) Intake Note: Patient is present for 6M/LABS/PVR/UA Urology Medication:BETHANECHOL,IMIPRAMINE Antibiotic Allergy:NONE Blood Thinner:NONE TODAY'S PVR:[employer] Service Supervisor Required: No Allergies hydrocortisone Allergy (Unknown, Verified 06/30/25 08:22) Unknown olanzapine (From ZYPREXA) Allergy (Unknown, Verified 06/30/25 08:22) UNKNOWN quetiapine (From SEROQUEL) Allergy (Unknown, Verified 06/30/25 08:22) UNKNOWN Pramoxine HCl Allergy (Unknown, Uncoded 06/30/25 08:22) Unknown Skin Cleanser Allergy (Unknown, Uncoded 06/30/25 08:22) Unknown Medication List - Last Reconciled 06/30/25 by ANN Marin-VALERIA atorvastatin 40 mg PO QPM benztropine 0.5 mg PO BID bethanechol chloride 50 mg PO BID 90 days bisacodyl (Dulcolax (bisacodyl)) 10 mg (2 x 5 mg) PO BEDTIME bisacodyl (Dulcolax (bisacodyl)) 20 mg (4 x 5 mg) PO ONCE 1 day calcium carbonate-vitamin D3 500 mg-10 mcg (400 unit) 1 tab PO DAILY cetirizine 10 mg PO DAILY divalproex (Depakote) 2 tabs PO BEDTIME docusate sodium (DOK) 0 mg PO docusate sodium (Colace) 100 mg PO BID fluphenazine HCl mg PO fluticasone propionate 50 mcg/actuation 1 spray intranasal DAILY imipramine HCl 20 mg (2 x 10 mg) PO BEDTIME 90 days lorazepam (Ativan) 1 tab PO TID PRN magnesium citrate 296 mL PO DAILY magnesium citrate 296 mL PO ONCE PRN metformin 500 mg PO DAILY olanzapine 15 mg PO BEDTIME omega-3 fatty acids 1,000 mg PO BID omeprazole 20 mg PO DAILY peg 400-propylene glycol 0.4-0.3 % (Lubricant Eye (PG-PEG 400)) 1 drp ophthalmic (eye) BID HPI Comments Details: Rebecca is a pleasant 59-year-old female patient of Dr. Keys who was accompanied by her [email or web address] worker. She has a past medical history of arthritis, depression, hypercholesteremia, enuresis, GERD, anxiety, developmental delay, and bipolar disorder she presents to the office today for follow-up of her overactive bladder. In discussion with the patient and her CLOTH CUTTING INSPECTOR worker today she initially denied any bothersome urinary issues or concerns however then reported intermittent episodes of dysuria over the last 24 hours. Unable to obtain urine for urinalysis today and PVR 21 mL. We did discuss obtaining UA for further assessment evaluation. She does report compliance with imipramine as well as bethanechol as prescribed. She discusses how helpful this has been in she has not had any episodes of urinary incontinence. Previous workup has included a retroperitoneal ultrasound 08/06 noting bilateral kidneys with no renal calculi, lesions, and or hydronephrosis. Bilateral ureteral jets are demonstrated. Pre void bladder volume is approximately 135 mL. Postvoid bladder volume is approximately 0 mL. 6.9 cm simple appearing right ovarian cyst is noted. This is a chronic finding however it does appear slightly increased since previous imaging in 2018. She denies urinary urgency, urinary frequency, incontinence, nocturia, hematuria, foul smelling urine, changes to urinary stream, flank pain, fever, and or chills. She is happy with her current voiding parameters. Patient does have developmental delay and pier master assists providing patient medical history during todays office visit. All questions were answered. She otherwise offers no other issues or concerns at this time. Urine Cytology: 01/05 Rare atypical urothelial cells & 02/04 Negative for high- grade urothelial carcinoma. [facility] Medical History COVID-19 vaccine administered History of COVID-19 History of anxiety Arthritis Elevated cholesterol GERD (gastroesophageal reflux disease) Depression History of developmental delay Hx of bipolar disorder Enureses Surgical History H/O colonoscopy Social History Household Members: Other Are you a primary pediatric critical care nurse to a significant other at home: No Do you presently have visiting nurse or other home services: Yes (resides in [facility]) Alcohol intake: never Patient Tobacco Use Status: Never used Tobacco Review of Systems Const Reports as per HPI Eyes Reports no additional complaints ENT Reports no additional complaints Card Reports no additional complaints Resp Reports no additional complaints GI Reports as per HPI Reports as per [facility] Musc Reports as per [facility] Neuro Reports as per [facility] Psych Reports as per [facility] Endo Reports no additional complaints Fareed/Lymph Reports no additional complaints Aller/Immun Reports no additional complaints Physical Exam Const General: cooperative, healthy appearing, comfortable, no acute distress, well developed, alert and awake Orientation/consciousness: oriented to person Limitations: language barrier HEENT Head: Yes normal to inspection, Yes normocephalic and Yes atraumatic Ears: hearing grossly normal bilaterally Neck Neck: Yes normal visual inspection and Yes trachea midline Chest Chest palpation & inspection: normal inspection of the chest Resp Effort & Inspection: normal respiratory effort and able to speak in complete sentences Cardio Rate: regular rate Neuro General: oriented to person Psych Appearance: grossly normal and well kempt Speech and movement: Normal speech and movement present and Clear speech present Affect: Labile affect present and Other affect and mood findings present (at times patient was emotional throughout todays) Attitude: cooperative Thought process: Other thought process findings present (patient developmentally delayed ) Insight: Limited insight present (Psych) Judgement: Limited judgement present (Psych) Office Procedures Post Void Residual Post Residual Void Post Void Residual (PVR): [id number] Void Residual by ultrasound Assessment & Plan Assessment & Plan (1) Incomplete bladder emptying: Code(s): R33.9 - Retention of urine, unspecified Category: Medical (2) Dysuria: Code(s): R30.0 - Dysuria Category: Medical (3) Enureses: Code(s): R32 - Unspecified urinary incontinence Category: Medical (4) Abnormal cytology: Code(s): R89.6 - Abnormal cytological findings in specimens from other organs, systems and tissues Category: Medical Plan Unable to obtain urine for urinalysis today as patient voided however specimen fell in the toilet Orders placed for urinalysis and culture will await results for potential treatment. PVR 51 mL. Previous urine cytology results were reviewed; as noted above. Continue bethanechol and imipramine as discussed and prescribed. We did discussed worsening symptoms. Will continue with surveillance monitoring. All questions were answered. Follow-up in 6 months with PVR; or sooner with any issues, concerns, and or questions. Orders: Orders UA CC w/rflx Micro + Cult Today R30.0 - Dysuria AMB Urinalysis Automated Today Z13.9 - Encounter for screening, unspecified Patient Instructions: The patient had an opportunity to ask questions regarding the treatment plan. All questions were answered. Physical exam, labs, and imaging were discussed and reviewed in detail. As well as risks, benefits, and discussion of treatment choices. No major barriers to understanding were identified. The patient expressed understanding and agreement with the above treatment plan. The patient was made aware they should contact our office by phone for worsening of their current condition, the appearance of new symptoms, or with any questions or concerns. Compliance is encouraged with any medications and follow up testing that is ordered. It is a privilege to be allowed the opportunity to participate in? your urological care.? Again, if you have any questions or concerns If you have any questions or concerns please do not hesitate to contact me. The office is [phone]. This note is constructed using voice recognition software. While every effort has been made to ensure accuracy head wrestling coach errors may have been included. Yours sincerely, DIANA Marin Coding Level of Care Code Est Pt Level 3 (72665) Add On Problem Visit Only Diagnoses Incomplete bladder emptying R33.9 Dysuria R30.0 Enureses R32 Abnormal cytology R89.6 CPT Codes Post Residual Void - PVR CPT Code: 21321-Zbyh Void Residual by ultrasound ([id number])
--- OUTSIDE RECORDS SUMMARY | 2025-06-30 07:55 | XMS_ITS | Patient Health Record ---
Author Organization [facility] Address [address] [place] [phone] Care Team Providers Care Social Media Community Manager Name Role Phone DELANEY CLAYTON Primary Care Provider Khris Russ [phone] Allergies Allergen (clinical drug ingredient) Drug/Non Drug Allergy documented on EMR Reaction Allergy Type Onset Date Status quetiapine Seroquel Unknown Drug Allergy Active Reason For Referral No Information Medications Medication SIG (Take, Route, Frequency, Duration) Notes Start Date End Date Status CeleXA 40 MG Tablet 0.5 tablet Orally Once a day Active Ativan 0.5 MG Tablet 1 tablet as needed Orally as directed /as needed Active Flonase Allergy Relief 50 MCG/ACT Suspension 1 spray in each nostril Nasally Once a day; Duration: 30 day(s) Active Oyster Shell Calcium + D Active Lipitor 40 MG Tablet 1 tablet Orally Onc e a day; Duration: 30 day(s) Active Lubricant Eye Drops Active fluPHENAZine HCl 2.5 MG Tablet 1 tablet Orally Once a day; Duration: 30 day(s) Active Cetirizine HCl 10 MG Capsule Orally Active Colace 100 MG Capsule 1 capsule as neede d Orally twice a day Active Calcium + Vitamin D3 500-400 Active Bethanechol Chloride 50 MG Tablet 1 tablet 1 hour before or 2 hours after meals Orally Three times a day; Duration: 30 day(s) Active Depakote 1000 mg Act temi MiraLax (colon prep) 17 GM/SCOOP Powder 1/2 of a 238Gm bottle mixed with 32 ounces of Gatorade 2 days before the colonoscopy, and then 1 238 GM bottle mixed with 64 ounces of Gatorade or Crystal Light the day before the colonoscopy Orally Take the 1/2 bottle 2 days before the colonoscopy, and begin the full bottle at 5:00 p.m. the day before the procedure; Duration: 2 days 12/09/2022 Active Tofranil Active ZyPREXA 5 MG Tablet Orally 10 mg in the evening Active Tylenol 500 mg Activ e Prilosec Active Dulcolax (colon prep) 5 MG Tablet Delayed Release Take 2 Dulcolax 2 days before the colonoscopy, and then take 2 at 3:00 p.m and at 7:00p.m. on the day before the colonoscopy Orally 2 tablets once two days before the colonoscopy, and two tablets twice a day for one day; Duration: 2 days 12/09/2022 Active [place] 3 Active Immunizations Vaccine Route Administration Date Status Comme nts Influenza Unknown 04/26/2020 Administered Social History Tobacco Use: Social History Observation Description Date Details (start date - stop date) Never Smoker NA - NA Social History Drugs/Alcohol: Social Info Question Answer Notes Alcohol Screen Did you have a drink containing alcohol in the past year? No Points 0 Interpretation Negative Tobacco Use: Social Info Question Answer Notes Tobacco Use/Smoking Patient is a nonsmoker Additional Details Category Social Info Options Details Miscellaneous: Marital status: single Occupation: unemployed Living with: Lives in a usp Section Notes: Nonsmoker, no alcohol Nonsmoker, no alcohol Nonsmoker, no alcohol Problems Problem Type SNOMED Code ICD Code Onset Dates Problem Status W/U Status Risk Notes Problem Screening for malignant neoplasm of colon (804638706) Encounter for screening for malignant neoplasm of colon (Z12.11) Active confirmed Problem Weight loss (090667896) Weight loss (R63.4) Active confirmed Problem Gastroesophageal reflux disease without esophagitis (693936976) Gastroesophageal reflux disease without esophagitis (K21.9) Active confirmed Problem Constipation (32681640) Constipation, unspecified constipation type (K59.00) Active confirmed Problem Barium swallow abnormal (617283005) Abnormal barium swallow (R93.3) Active confirmed Problem Esophageal dysphagia (16102276) Esophageal dysphagia (R13.10) Active confirmed Plan Of Treatment Future Test Test Name Order Date COLONOSCOPY 05/06/2017 UPPER GI ENDOSCOPY BALLOOON DILATION OF ESOPH 11/01/2020 COLONOSCOPY 12/05/2022 Insurance Providers Payer Name Payer Address Payer Phone Subscriber Number Group Number Insured Name Patient Relationship to Insured Coverage Start Date Coverage End Date MEDICAID OF [facility] [address] [place] [phone] [id number] REY MANCIA Self - patient is the insured Medical (General) History Medical History History ICD Code Developmental delay disorder Mood disorder--depression, bipolar GERD Arthriis Denies [place],DM,CVA,Lung disease,renal dise ase hyperlipidemia depression allergies anxiety [...]
--- OUTSIDE RECORDS SUMMARY | 2025-06-30 07:56 | XMS_ITS | Encounter Summary ---
Author Organization [employer] Address [address] [facility] 7 [place] [address] Care Team Providers Care Airfield Engineer Officer Name Role Phone Anyi Keys MD Primary Care Provider [phone] Emi Moe MD Primary Care Provider [phone] Reason for Visit * Reason Comments Med Refill Encounter Details Date Type Department Care Team ([facility] st Contact Info) Description 07/24/2024 Refill [facility] [address] [place] [address] Anyi Keys MD [address] [place], [place] [phone] Hypercholesteremia Social History Tobacco Use Types Packs/Day [...] Care Team (Late st Contact Info) Description 08/17/2025 9:00 AM EST Office Visit [facility] [address] [place] [address] Swathi Lombardi CN [address] [place] [address] documented as of this encounter Visit Diagnoses Diagnosis Hypercholesteremia Pure hypercholesterolemia documented in this encounter Care Teams Airfield Engineer Officer Relationship Specialty Start Date End Date Anyi Keys MD [address] [place] [address] PCP - General Family Medicine 06/29/12 05/11/25 Emi Moe MD [address] [place] [address] PCP - General Family Medicine 05/12/25 documented as of this encounter
--- OUTSIDE RECORDS SUMMARY | 2025-06-30 07:56 | XMS_ITS | Encounter Summary ---
Author Organization [employer] Address [address] [facility] 7 [place] [address] Care Team Providers Care Construction Coordinator Name Role Phone Anyi Keys MD Primary Care Provider [phone] Emi Moe MD Primary Care Provider [phone] Reason for Visit * Reason Comments Med Refill Encounter Details Date Type Department Care Team ([facility] st Contact Info) Description 05/10/2025 Refill [facility] [address] [place] [address] Anyi Keys MD [address] [place] [address] Developmental delay Social History Tobacco Use Types [...] Description 08/17/2025 9:00 AM EST Office Visit [facility] [address] [place] [address] Swathi Lombardi CNM [address] [place] [address] documented as of this encounter Visit Diagnoses Diagnosis Developmental delay Unspecified delay in development documented in this encounter Additional Health Concerns Assessment Noted Time PHQ-9 Depression Total Score: 0 08/17/19 9:08 AM EST documented as of this encounter Care Teams Construction Coordinator Relationship Specialty Start Date End Date Anyi Kesy MD [address] [place] [address] PCP - General Family Medicine 06/29/12 05/11/25 Emi Moe MD [address] [place] [address] PCP - General Family Medicine 05/12/25 documented as of this encounter
--- OUTSIDE RECORDS SUMMARY | 2025-06-30 07:56 | XMS_ITS | Encounter Summary ---
Author Organization [employer] Address [address] [facility] 7 [place] [address] Care Team Providers Care It Application Architect Name Role Phone Anyi Keys MD Primary Care Provider [phone] Emi Moe MD Primary Care Provider [phone] Reason for Visit * Reason Onset Date Comments Med Refill 10/28/2024 Encounter Details Date Type Department Care Team ([facility] st Contact Info) Description 10/28/2024 Refill [facility] [address] [place] [address] Anyi Keys MD [address] [place] [address] Sore throat Social History Tobacco Use Types [...] Description 08/17/2025 9:00 AM EST Office Visit [facility] [address] [place] [address] Swathi Lombardi CNM [address] [place] [address] documented as of this encounter Visit Diagnoses Diagnosis Sore throat Acute pharyngitis documented in this encounter Additional Health Concerns Assessment Noted Time PHQ-9 Depression Total Score: 0 08/17/19 9:08 AM EST documented as of this encounter Care Teams It Application Architect Relationship Specialty Start Date End Date Anyi Keys MD [address] [place] [address] PCP - General Family Medicine 06/29/12 05/11/25 Emi Moe MD [address] [place] [address] PCP - General Family Medicine 05/12/25 documented as of this encounter
--- OUTSIDE RECORDS SUMMARY | 2025-06-30 07:56 | XMS_ITS | Clinical Summary ---
Author Organization [employer] Address [address] [facility] 7t [place] [address] Care Team Providers Care Throw Out Clerk Name Role Phone Emi Moe MD Primary Care Provider [phone] Allergies No known active allergies Medications albuterol [...] 2 Active LORazepam (Ativan) 0.5 MG tablet 12/13/202 3 Active Artificial Tears 0.2-0.2-1 % solution 3 Active bethanechol (Urecholine) 50 MG tablet 3 Active diclofenac (Cataflam) 50 MG tablet Take 1 tablet (50 mg) by mouth 3 times daily. 60 tablet 4 Active omeprazole (PriLOSEC) [address] capsule [...] EVERY DAY 180 capsule 1 5 Active fluticasone (Flonase) 50 MCG/ACT nasal spray Administer 2 sprays into each nostril Once per day. Shake gently. Before first use, prime pump. After use, clean tip and replace cap. 16 g 1 5 Active pseudoephedrine (Sudafed) 30 MG tablet Take 1 tablet (30 mg) by mouth at bedtime for 10 days. 10 tablet 5 Active Active Problems Problem Noted Date Diagnosed Date Other chest pain 03/11/2025 Assessment & Plan (03/11/2025 3:23 PM EDT): EKG was attempted to be done but likely it was not working for this reason I could not managing broker Patient is poor historian complaining of chest [...] Encounters Date Type Department Care Team Description 06/07/2025 Refill [facility] [address] [place] [address] Anyi Keys MD Developmental delay 05/30/2025 Telephone [facility] [address] [place], [place] [phone] Irasema Freire [place] 05/10/2025 Refill [facility] [address] [place] [address] Anyi Keys MD Developmental delay 05/10/2025 Refill [facility] [address] [place] [address] Anyi Keys MD Developmental delay 05/04/2025 10:00 AM EDT Office Visit [facility] [address] [place] [address] Anyi Keys MD PND (post-nasal drip) (Primary Dx); Encounter for immunization; Encounter for vaccination 05/04/2025 Travel 05/02/2025 Telephone [facility] [address] [place] [address] Anyi Keys MD chart prep 04/27/2025 Telephone [facility] [address] [place] [address] Anyi Keys MD Nurse Triage 04/20/2025 Refill [facility] [address] [place], [place] [phone] Anyi Keys MD Developmental delay from Last 3 Months Immunizations Immunization Administration Dates Next Due Influenza Injectable Quadriv alant Preservative Free IIV4 MDCK 03/28/2022,04/04/2020 Influenza injectable quadriv alent IIV4 with preservative 05/12/2019,04/08/2017,04/19/2015 Influenza injectable quadriv alent preservative free 04/13/2021,07/17/2018 Influenza, IIV3, injectable 04/11/2023,,04/25/2014 Influenza, Split (incl. maryellen fied surface antigen) 04/17/2012 Influenza, seasonal, injecta ble, preservative free 05/04/2025,05/18/2024 Moderna Covid-19 Vaccine 12+ 05/15/2023,09/07/19 21,08/10/2020 Pfizer Covid-19 Vaccine 12+ 05/04/2025 Tdap 08/25/2017 Zoster, Recombinant 08/08/2020 Social History [...] Sign Reading Time Taken Comments Blood Pressure 132/70 05/04/2025 10:11 AM EDT Pulse 84 05/04/2025 10:11 AM EDT Temperature 36.4 C (97.5 F) 05/04/2025 10:11 AM EDT Respiratory Rate 18 05/04/2025 10:11 AM EDT Oxygen Saturation 97% 05/04/2025 10:11 AM EDT Inhaled Oxygen Concentration - - Weight 61.2 kg (135 lb) 05/04/2025 10:11 AM EDT Height 146.1 cm (4' 9.5 ) 05/04/2025 10:11 AM ED T Body Mass Index 28.71 05/04/2025 10:11 AM EDT Plan of Treatment Upcoming Encounters Date Type Department Care Team (Late st Contact Info) Description 08/17/2025 9:00 AM EST Office Visit [facility] [address] [place] [address] Swathi Lombardi, CNM [address] [place] [address] Health Maintenance Due Date Last Done Comments CT Colonography 1965 FIT DNA/Cologuard 1965 FIT 1965 FOBT 1965 HIV Screening 1965 Sigmoidoscopy 1965 Alcohol/Substance Use Screening 1977 Hepatitis B Vaccines (1 of 3 - 19+ 3-dose series) 1984 Pneumococcal Vaccine: 50+ Years (1 of 1 - PCV) 10/24/2015 Zoster Vaccines (2 of 2) 10/03/2020 08/08/2020 Colonoscopy 07/11/2022 07/11/2017 Colorectal Cancer Screening 07/11/2022 Depression Screening 08/17/2025 08/17/2024, 08/17/19 25 Disability Screening 11/25/2025 11/25/2024 SDOH Screening 11/25/2025 11/25/2024 Diabetes: Hemoglobin A1C 03/26/2026 025, 12/18/2024, 02/17/2024, Additional history exists Tobacco Screening 05/04/2026 05/04/2025 Cervical Cancer Screening 01/25/2027 HPV/Cotest 01/25/2027 01/26/2024, 08/17/2019 Pap Smear 01/25/2027 01/26/2024 Mammogram 02/22/2027 02/22/2025, 07/2 03/2024, 02/09/2024, Additional history exists DTaP/Tdap/Td Vaccines (2 - Td or Tdap) 08/25/2027 08/25/2017 Lipid Panel 12/18/2029 12/18/2024, 07/0 08/2023, 11/07/2021, Additional history exists RSV Patients and Patients Aged 60 years or older (1 - 1-dose 75+ series) 2040 Hepatitis C Screening Completed 01/13/2024 COVID-19 Vaccine Completed 05/04/2025, 08/2022, 11/09/2021, Additional history exists Influenza Vaccine Completed 05/04/2025, , 04/11/2023, Additional history exists HIB Vaccines Aged Out [...] Procedure Name Priority Date/Time Associated Diagnosis Comments HEMOGLOBIN A1C Routine 03/26/2025 9:24 AM EDT BI MAMMOGRAM SCREENING TOMOSYNTHESIS BILATERAL Routine 02/22/2025 8:15 AM EDT LIPID PANEL, STANDARD Routine 12/18/2024 8:44 AM EDT Prediabetes THINPREP IMAGING PAP AND HPV MRNA E6/E7 Routine 01/26/2024 11:19 AM EDT HEPATITIS C AB W/REFL TO HCV RNA, QN, PCR Routine 01/13/2024 8:45 AM EDT Annual physical exam HM COLONOSCOPY Routine 07/11/2017 from Last 3 Months or Most Recently Relevant to Health Maintenance Results * (ABNORMAL) Hemoglobin A1c (03/26/2025 9:24 AM EDT) Hemoglobin A1c 6.2(H) <6.0 % [facility] Comment:Hemoglobin A1C Refer ence Range Adults: 4.8 - 6.0 % Non diabetic: < 6.0 % Goal: < 7.0 %Additional Action Suggested: > 8.0 %Note: Hemoglobin A1c results are invalid for patients with abnormal amounts of HbF. Blood transfusions may impact the HbA1c concentration in the patient sample. Estimated Average Glucose 131 mg/dL [facility] Comment:eAG = Estimated ave rage glucose which is %A1C expressed asaverage glucose, using the formula of the [id number] Glucose study (ADAG), Diabetes Care, Vol.31,#8,Feb. 2007 03/26/2025 9:24 AM EDT 03/26/2025 9:24 AM EDT us Generic External Data Provider LAB BLOOD ORDERAB LES Final Result [facility] [address] [place] [address] [phone] * BI Mammogram Screening Tomosynthesis Bilateral (02/22/2025 8:15 AM EDT) Anatomical Region Laterality Modality Breast Bilateral Mammography 02/22/2025 8:15 AM EDT Narrative 02/28/2025 2:31 PM EDT [facility] [address] [place] [address] Mammography Report Signed Patient: Rebecca Crespo MR#: [id number] : 1965 Acct:[id number] Age/Sex: 59 / F ADM Date: 02/22/25 Loc: HO.MAMMO Attending Dr: Anyi Keys MD Ordering Physician: Anyi Keys MD Results: 1Negati ve Date of Service: 02/22/25 Follow Up: 1 Year From [facility] Mammogram Procedure(s): MM tomosynthesis screening BI Accession Number(s): [id number] cc: Anyi Keys MD EXAMINATION: MM SCREENING [...] 02/28/25 1428 DD/ 0815 TD/TT: 02/22/25 0852 Supervisor Production Managing: Procedure Note Donotuseinterpreter, Image - 02/28/20[facility] [address] [place] [address] Mammography Report Signed Patient: Rebecca Crespo#: M [id number] : 1965Acct:[id number] Age/Sex: 59 / FADM Date: 02/22/25 Loc: MAMMO Attending Dr: Anyi Keys MD Ordering Physician: Anyi Keys MDResults: 1Negati ve Date of Service: 02/22/25Follow Up: 1 Year From [facility] Mammogram Procedure(s): MM tomosynthesis screening BI Accession Number(s): [id number] cc: Anyi Keys MD EXAMINATION: MM SCREENING [...] 02/28/25 1428 DD/ 0815 TD/TT: 02/22/25 0852 Supervisor Production Managing: us Anyi Keys MD IMG BI PROCEDURES Final Result * (ABNORMAL) Lipid Panel, Standard (12/18/2024 8:44 AM EDT) Triglycerides 206(H) <150 mg/dL [facility] Comment:Desirable Triglyceri de: less than 150 mg/dLBorderline High Triglyceride 150-199 mg/dLHigh Triglyceride: 200-499 mg/dLVery High Triglyceride: greater than or equal to 5OO mg/dL Cholesterol 191 <200 mg/dL [facility] Comment:Desirable Cholestero l: less than 200 mg/dLBorderline High Cholesterol: 200-239 mg/dLHigh Cholesterol: greater than 239 mg/dL LDL Cholesterol Calculated 115(H) <100 mg/dL [facility] Comment:Desirable LDL: less than 100 mg/dLNear Optimal/Above Optimal LDL: 110- 129 mg/dLBorderline High LDL: 130-159 mg/dLHigh LDL: 160-189 mg/dLVery High LDL: greater than or equal to 190 mg/dL HDL Cholesterol 35(L) >40 mg/dL [facility] Comment:Desirable HDL: great er than 40 mg/dL Note: This HDL assay may give artificially low results in patients with liver disease. Blood Venous blood specimen / Unknown 12/18/2024 8:44 AM EDT 12/18/2024 8:44 AM EDT us Anyi Keys MD LAB BLOOD ORDERABLES Final Resul t [facility] [address] [place] [address] [phone] * (ABNORMAL) ThinPrep Imaging Pap and HPV mRNA E6/E7 (01/26/2024 11:19 AM EDT) HPV nRNA E6/E7 Not Detected Not Detected [facility] Comment:Methodology: Transcr iption-Mediated AmplificationThis assay detects E6/E7 viral messenger RNA (mRNA) from 14high-risk HPV types (16,18,31,33,35,39,45,51,52,56,58,59,66,68).Cervical sources are required for HPV testing.If a vaginal source from a patient who has had atotal hysterectomy with removal of cervix wassubmitted, please contact the testing laboratoryfor alternative testing options.For additional information, please refer tohttp://education.BIOSAFE/faq/VOZ730f4(This link if provided for information/educational purposes only.)THIS TEST WAS PERFORMED AT:[facility] ANATOMIC PATHOLOGY[address] [place] [address]OMHEKMALORIE KEARNS MD SOURCE: SEE NOTE [facility] Comment:Cervix Report Status: TNP [facility] Clinical Information: SEE NOTE [facility] Comment:Routine exam LMP: SEE NOTE [facility] Comment:NONE GIVEN Prev. PAP: SEE NOTE [facility] Comment:2019 Prev. BX: SEE NOTE [facility] Comment:NONE GIVEN Statement Of Adequacy: SEE NOTE [facility] Comment:Satisfactory for grace luation.Endocervical/transformation zone componentpresent. General Categorization: SEE NOTE(A) [facility] Comment:Cytology Results: Ep ithelial Cell Abnormality Interpretation/Result: SEE NOTE(A) [facility] Comment:Atypical Squamous Ce lls of UndeterminedSignificance (ASC-US) Cytology Comment SEE NOTE [facility] Comment:This Pap test has be en evaluated with computerassisted technology. Asphalt Smoother: SEE NOTE [facility] Comment:YP, CT(ASCP)CT saravanane trip location: [place] [address] Review Asphalt Smoother: [facility] Pathologist SEE NOTE [facility] Comment:Neha Estrada M.D., Ph.D.,Board Certified in Anatomic Pathology andCytopathology(electronic signature)Consulting [address] [phone] PAP Infection [facility] See Note SEE NOTE [facility] Comment:EXPLANATORY NOTE:The Pap is a [...] AM EDT 01/27/2024 8:14 AM EDT Narrative [facility] - 02/03/2024 6:50 PM EDT SEE SCANNED RESULTS IN [id number] us Swathi TRONCOSO LAB PATHOLOGY ORDERABLES Final Result [facility] [address] [place], [place] [phone] * Hepatitis C Antibody with Reflex to HCV, RNA, Quantitative, Real-Time PCR (01/13/2024 8:45 AM EDT) Hepatitis C Antibody Nonreactive Nonreactive [facility] Comment:Antibodies to HCV no t detected; does not exclude early acuteHCV infection. Blood Venous blood specimen / Unknown 01/13/2024 8:45 AM EDT 01/13/2024 2:20 PM EDT Anyi Keys MD LAB BLOOD ORDERABLES Final Resul t [facility] [address] [place] [address] [phone] * Colonoscopy (07/11/2017) Colonoscopy Normal Normal Historical Provider HEALTH MAINTENANCE Final Result from Last 3 Months or Most Recently Relevant to Health Maintenance [facility] Direct[facility] Documents on File Type Date Recorded Patient Senior Systems Analyst Expl anation Advance Directives and Livin g Will 11/25/2024 2:04 PM HCP Care Teams Throw Out Clerk Relationship Specialty Start Date End Date Emi Moe MD [address] [place] [address] PCP - General Family Medicine 05/12/25
--- OUTSIDE RECORDS SUMMARY | 2025-06-30 07:56 | XMS_ITS | Encounter Summary ---
Author Organization [employer] Address [address] [facility] 7 [place] [address] Care Team Providers Care Sports Photographer Name Role Phone Anyi Keys MD Primary Care Provider [phone] Emi Moe MD Primary Care Provider [phone] Reason for Visit * Reason Onset Date Comments Nurse Triage 04/27/2025 Encounter Details Date Type Department Care Team ([facility] st Contact Info) Description 04/27/2025 Telephone [facility] [address] [place] [address] Anyi Keys MD [address] [place], [place] [phone] Nurse Triage Social History Tobacco Use Types [...] encounter Miscellaneous Notes * Telephone Encounter - Paulo Ramos - 04/27/2025 9:48 AM EDT Symptom: Cough Outcome: Schedule an appointment to be seen within 24 hours Reason: Caller denied all higher acuity questions Please contact pt at [phone]. documented in this encounter Plan of Treatment Upcoming Encounters Date Type Department Care Team (Late st Contact Info) Description 08/17/2025 9:00 AM EST Office Visit [facility] [address] [place] [address] Swathi Lombardi CNM [address] [place] [address] documented as of this encounter Visit Diagnoses Not on filedocumented in this encounter Additional Health Concerns Assessment Noted Time PHQ-9 Depression Total Score: 0 08/17/19 25 9:08 AM EST documented as of this encounter Care Teams Sports Photographer Relationship Specialty Start Date End Date Anyi Keys MD [address] [place] [address] PCP - General Family Medicine 06/29/12 05/11/25 Emi Moe MD [address] [place] [address] [place] [address] PCP - General Family Medicine 05/12/25 documented as of this encounter
--- OUTSIDE RECORDS SUMMARY | 2025-06-30 07:56 | XMS_ITS | Encounter Summary ---
Author Organization [employer] Address [address] [facility] 7 [place] [address] Care Team Providers Care Columnist/Commentator Name Role Phone Anyi Keys MD Primary Care Provider [phone] Emi Moe MD Primary Care Provider [phone] Encounter Details Date Type Department Care Team (Late st Contact Info) Description 12/18/2022 Orders Only [facility]C MED & PEDS [address] [place] [address] Donavan Dalton MD [address] [place] [address] Encounter for hearing examination, unspecified whether abnormal [...] Description 08/17/2025 9:00 AM EST Office Visit [facility] MEDICINE [address] [place] [address] Swathi Lombardi CNM [address] [place] [address] documented as of this encounter Visit Diagnoses Diagnosis Encounter for hearing examination, unspecified whether abnormal findings- Primary documented in this encounter Care Teams Columnist/Commentator Relationship Specialty Start Date End Date Anyi Keys MD [address] [place] [address] PCP - General Family Medicine 06/29/12 05/11/25 Emi Moe MD [address] [place] [address] PCP - General Family Medicine 05/12/25 documented as of this encounter
--- OUTSIDE RECORDS SUMMARY | 2025-06-30 07:56 | XMS_ITS | Encounter Summary ---
Author Organization [employer] Address [address] [facility] 7 [place] [address] Care Team Providers Care Watch Inspector Final Movement Name Role Phone Anyi Keys MD Primary Care Provider [phone] Emi Moe MD Primary Care Provider [phone] Reason for Visit * Reason Onset Date Comments Med Refill 05/10/2025 Encounter Details Date Type Department Care Team ([facility] Contact Info) Description 05/10/[address] [facility] MED & PEDS [address] [place] [address] Anyi Keys MD [address] [place] [address] Developmental delay Social History Tobacco Use Types [...] Description 08/17/2025 9:00 AM EST Office Visit [facility] MEDICINE [address] [place] [address] Swathi Lombardi CNM [address] [place] [address] documented as of this encounter Visit Diagnoses Diagnosis Developmental delay Unspecified delay in development documented in this encounter Additional Health Concerns Assessment Noted Time PHQ-9 Depression Total Score: 0 08/17/19 25 9:08 AM EST documented as of this encounter Care Teams Watch Inspector Final Movement Relationship Specialty Start Date End Date Anyi Keys MD [address] [place] [address] PCP - General Family Medicine 06/29/12 05/11/25 Emi Moe MD [address] [place] [address] PCP - General Family Medicine 05/12/25 documented as of this encounter
--- OUTSIDE RECORDS SUMMARY | 2025-06-30 07:56 | XMS_ITS | Encounter Summary ---
Author Organization [employer] Address [address] [place] [address] 7 [place] [address] Care Team Providers Care Right Of Way Maintenance Supervisor Name Role Phone Emi Moe MD Primary Care Provider [phone] Reason for Visit * Reason Onset Date Comments Med Refill 06/08/2025 Encounter Details Date Type Department Care Team ([facility] Contact Info) Description 06/07/2025 Refill [facility] MED & PEDS [address] [place] [address] Anyi Keys MD [address] [place] [address] Developmental delay Social History Tobacco Use Types [...] [facility] MEDICINE [address] [place] [address] Swathi Lombardi CNM [address] [place] [address] documented as of this encounter Visit Diagnoses Diagnosis Developmental delay Unspecified delay in development documented in this encounter Additional Health Concerns Assessment Noted Time PHQ-9 Depression Total Score: 0 08/17/19 9:08 AM EST documented as of this encounter Care Teams Right Of Way Maintenance Supervisor Relationship Specialty Start Date End Date Emi Moe MD [address] [place] [address] PCP - General Family Medicine 05/12/25 documented as of this encounter
--- OUTSIDE RECORDS SUMMARY | 2025-06-30 07:56 | XMS_ITS | Encounter Summary ---
Author Organization [employer] Address [address] [facility] 7 [place] [address] Care Team Providers Care Ancillary Specialist Name Role Phone Anyi Keys MD Primary Care Provider [phone] Emi Moe MD Primary Care Provider [phone] Reason for Visit * Reason Onset Date Comments Med Refill 11/10/2024 Encounter Details Date Type Department Care Team ([facility] st Contact Info) Description 11/10/2024 Refill [facility] MED & PEDS [address] [place] [address] Anyi Keys MD [address] [place] [address] Developmental delay Social History Tobacco Use Types [...] Description 08/17/2025 9:00 AM EST Office Visit [facility] MEDICINE [address] [place] [address] Swathi Lombardi CNM [address] [place] [address] documented as of this encounter Visit Diagnoses Diagnosis Developmental delay Unspecified delay in development documented in this encounter Additional Health Concerns Assessment Noted Time PHQ-9 Depression Total Score: 0 08/17/19 9:08 AM EST documented as of this encounter Care Teams Ancillary Specialist Relationship Specialty Start Date End Date Anyi Keys MD [address] [place] [address] PCP - General Family Medicine 06/29/12 05/11/25 Emi Moe MD [address] [place] [address] PCP - General Family Medicine 05/12/25 documented as of this encounter
--- OUTSIDE RECORDS SUMMARY | 2025-06-30 07:56 | XMS_ITS | Encounter Summary ---
Author Organization [employer] Address [address] [place] [address] 7 [place] [address] Care Team Providers Care Food Checker Name Role Phone Anyi Keys MD Primary Care Provider [phone] Emi Moe MD Primary Care Provider [phone] Encounter Details Date Type Department Care Team (Late st Contact Info) Description 02/13/2023 Orders Only [facility] CHC MED & PEDS [address] [place], [place] [phone] Donavan Dalton MD [address] [place] [address] Encounter for hearing examination, unspecified whether abnormal [...] Description 08/17/2025 9:00 AM EST Office Visit [facility] MEDICINE [address] [place], [place] [phone] Swathi Lombardi CNM [address] [place] [address] documented as of this encounter Procedures Procedure [...] PM EDT Narrative 03/06/2023 5:02 PM EDT [address] [place] [address] Ultrasound Report Signed Patient: Rebecca Wang MR#: [id number] 5 : 1965 Acct:[id number] Age/Sex: 57 / F ADM Date: 03/06/23 Loc: HO.MAMMO Attending Dr: Ysabel Rollins NP Ordering Physician: YSABEL ROLLINS NP Date of Service: 03/06/23 Procedure(s): US breast LT limited mamm only Accession Number(s): [id number] cc: YSABEL ROLLINS NP EXAMINATION: MM DIAGNOSTIC [...] in OV> 03/06/23 1659 DD/ 1453 TD/TT: Glass Cutter: Procedure Note Donotuseinterpreter, Image - 03/06/2023 [facility] [address] [place], [place] [address] Ultrasound Report Signed Patient: Maddie Wang#: [id number] 5 : 1965Acct:[id number] Age/Sex: 57 / FADM Date: 03/06/23 Loc: HO.MAMMO Attending Dr: Ysabel Rollins NP Ordering Physician: YSABEL ROLLINS NP Date of Service: 03/06/23 Procedure(s): US breast LT limited mamm only Accession Number(s): [id number] cc: YSABEL ROLLINS NP EXAMINATION: MM DIAGNOSTIC [...] in OV> 03/06/23 1659 DD/ 1453 TD/TT: Glass Cutter: us Ysabel Rollins CORE PILER IMG US PROCEDURES Final Result * BI Mammogram Diagnostic Tomosynthesis Bilateral (03/06/2023 2:25 PM EDT) Anatomical Region Laterality Modality Breast Bilateral Mammography 03/06/2023 2:25 PM EDT Narrative 03/06/2023 5:02 PM EDT [facility] [place] [address] Mammography Report Signed Patient: Rebecca Wang MR#: [id number] 5 : 1965 Acct:[id number] Age/Sex: 57 / F ADM Date: 03/06/23 Loc: HO.MAMMO Attending Dr: Ysabel Rollins NP Ordering Physician: YSABEL ROLLINS NP Results: 1Negati ve Date of Service: 03/06/23 Follow Up: 1 Year From [facility] Mammogram Procedure(s): MM tomosynthesis diagnostic BI Accession Number(s): [id number] cc: YSABEL ROLLINS NP EXAMINATION: MM DIAGNOSTIC [...] in OV> 03/06/23 1659 DD/ 1425 TD/TT: Glass Cutter: Procedure Note Donotuseinterpreter, Image - 03/06/2023 [facility] [address] [place] [address] Mammography Report Signed Patient: Maddie Wang#: [id number] 5 : 1965Acct:[id number] Age/Sex: 57 / FADM Date: 03/06/23 Loc: HO.MAMMO Attending Dr: Ysabel Rollins SCRAPPER Ordering Physician: YSABEL ROLLINSults: 1Negati ve Date of Service: 03/06/23Follow Up: 1 Year From Orig inal Mammogram Procedure(s): MM tomosynthesis diagnostic BI Accession Number(s): [id number] cc: YSABEL ROLLINS SCRAPPER EXAMINATION: MM DIAGNOSTIC DIGITAL BREAST TOMOSYNTHESIS, BILATERAL [...] in OV> 03/06/23 1659 DD/ 1425 TD/TT: Glass Cutter: us Ysabel Rollins CORE PILER IMG BI PROCEDURES Final Result documented in this encounter Visit Diagnoses Diagnosis Encounter for hearing examination, unspecified whether abnormal findings- Primary documented in this encounter Care Teams Food Checker Relationship Specialty Start Date End Date Anyi Keys MD [address] [place] [address] PCP - General Family Medicine 06/29/12 05/11/25 Emi Moe MD [address] [place] [address] PCP - General Family Medicine 05/12/25 documented as of this encounter
--- OUTSIDE RECORDS SUMMARY | 2025-06-30 07:56 | XMS_ITS | Encounter Summary ---
Author Organization [employer] Address [address] [place] [address] 7 [place] [address] Care Team Providers Care Inspector Wire Rope Name Role Phone Anyi Keys MD Primary Care Provider [phone] Emi Moe MD Primary Care Provider [phone] Encounter Details Date Type Department Care Team (Late st Contact Info) Description 07/01/2022 Telephone [facility] CHC MED & PEDS [address] [place], [place] [phone] Anyi Keys MD [address] [place], [place] [phone] Social History Tobacco Use Types Packs/Day Years [...] [facility] MEDICINE [address] [place], [place] [phone] Swathi Lombardi CNM [address] [place], [place] [phone] documented as of this encounter Visit Diagnoses Not on filedocumented in this encounter Care Teams Inspector Wire Rope Relationship Specialty Start Date End Date Anyi Keys MD [address] [place] [address] PCP - General Family Medicine 06/29/12 05/11/25 Emi Moe MD [address] [place] [address] PCP - General Family Medicine 05/12/25 documented as of this encounter
== END 2025-06-30 08:23 | disposition home or self-care (01) ==
LOC: HO.HUSH 07:52
PROVIDERS: PCP Family Medicine; Visit Provider Nurse Practitioner Family
DX: R33.9 Retention of urine, unspecified (principal); R30.0 Dysuria; R32 Unspecified urinary incontinence; R89.6 Abnormal cytological findings in specimens from other organs, systems and tissues
CPT/HCPCS: 99213

== ENCOUNTER → 2025-06-30 07:51 | Outpatient (BNVA) | payer MEDICAID, SELFPAY | PROVIDERS: PCP Family Medicine; Visit Provider Nurse Practitioner Family | DX: R30.0 Dysuria (principal); R33.9 Retention of urine, unspecified; R32 Unspecified urinary incontinence; R89.6 Abnormal cytological findings in specimens from other organs, systems and tissues | CPT/HCPCS: 51798; 99212 ==